=== PATIENT | male | born 1965 ===

== ENCOUNTER 2018-03-16 16:39 | Inpatient (IN) | payer BC ==
[2018-03-16 17:24] LABS: VENOUS BLOOD GAS BASE EXCESS -3.3 mmol/L (0.0-2.0); VENOUS BLOOD GAS PCO2 37 mmHg (40-60); VENOUS BLOOD GAS PO2 32 mm/Hg (30-55); VENOUS BLOOD PH 7.37 (7.32-7.43)
[2018-03-16 17:24] LABS: BASO # 0.1 K/uL (0.0-0.2); BASO % 1.3 % (0.0-2.0); EOS # 0.2 K/uL (0.0-0.7); EOS % 1.9 % (0.0-4.0); HEMOGLOBIN 15.7 g/dL (12.0-18.0); LYMPH # 1.4 K/uL (1.0-4.3); MEAN CELL VOLUME 87.3 fl (80.0-94.0); MEAN CORPUSCULAR HEMOGLOBIN 29.2 pg (27.0-31.0); MEAN CORPUSCULAR HGB CONC 33.5 g/dL (33.0-37.0); MEAN PLATELET VOLUME 11.5 fl (7.2-11.7); MONO # 0.9 K/uL (0.0-0.8); MONO % 9.8 % (0.0-10.0); NEUT # 6.8 K/uL (1.8-7.0); NRBC % 0.1 % (0.0-0.0); RBC 5.38 Mil/uL (4.40-5.90); RED CELL DISTRIBUTION WIDTH 16.3 % (11.5-14.5); WHITE BLOOD COUNT 9.5 K/uL (4.8-10.8)
[2018-03-16 17:36] LABS: CALCIUM 8.7 mg/dL (8.4-10.2); INR 1.2; PROTHROMBIN TIME 13.3 Seconds (9.8-13.1)
[2018-03-16 17:38] LABS: PARTIAL THROMBOPLASTIN TIME 31.1 Seconds (25.6-37.1)
--- NOTE | 2018-03-16 17:45 | RAD ---
Date of service: 03/16/2018 HISTORY: possible admission COMPARISON: No prior. FINDINGS: LUNGS: No active pulmonary disease. PLEURA: No significant pleural effusion identified, no pneumothorax apparent. CARDIOVASCULAR: Cardiomegaly. No evidence of acute, significant cardiovascular disease. OSSEOUS STRUCTURES: No significant abnormalities. VISUALIZED UPPER ABDOMEN: Normal. OTHER FINDINGS: None. IMPRESSION: No active disease.
[2018-03-16 17:48] LABS: TROPONIN I 0.115 ng/mL (0.00-0.120)
--- NOTE | 2018-03-16 18:09 | ED PDOC ---
HPI: SOB/CHF/COPD Time Seen by Provider: 03/16/18 16:55 Chief Complaint (Nursing): Shortness Of Breath Chief Complaint (Provider): Shortness Of Breath History Per: Patient History/Exam Limitations: no limitations Onset/Duration Of Symptoms: Days Current Symptoms Are (Timing): Still Present Additional Complaint(s): 52 y/o male with a PMHx of a small heart attack several years ago presents to the ED complaining of increasing chest pain and shortness of breath. Patient went to see PMD and was diagnosed with new onset heart failure and atrial fibrillation. PMD requests patient to be admitted to hospital with consult for Dr. Pate. Patient denies drug use, syncope, nausea, vomiting and other problems. PMD: None Provided Past Medical History Reviewed: Historical Data, Nursing Documentation, Vital Signs Vital Signs: Last Vital Signs Temp 97.7 F 03/16/18 22:32 Pulse 80 03/16/18 22:32 Resp 20 03/16/18 22:32 BP 178/111 H 03/16/18 22:32 Pulse Ox 97 03/16/18 22:32 - Medical History PMH: Atrial Fibrillation, CHF, HTN - Surgical History Surgical History: No Surg Hx - Family History Family History: States: Unknown Family Hx - Social History Drugs: Denies - Immunization History Hx Tetanus Toxoid Vaccination: No Hx Influenza Vaccination: No Hx Pneumococcal Vaccination: No - Home Medications Home Medications: Ambulatory Orders Medication Instructions Recorded Valsartan/Hydrochlorothiazide 1 tab PO DAILY 03/16/18 [Valsartan-Hctz 320-25 mg Tab] - Allergies Allergies/Adverse Reactions: Allergies Allergy/AdvReac Type Severity Reaction Status Date / Time No Known Allergies Allergy Unverified 03/16/18 16:42 Review of Systems ROS Statement: Except As Marked, All Systems Reviewed And Found Negative Cardiovascular: Positive for: Chest Pain Respiratory: Positive for: Shortness of Breath Physical Exam - Reviewed Nursing Documentation Reviewed: Yes Vital Signs Reviewed: Yes - Physical Exam Appears: Positive for: No Acute Distress Head Exam: Positive for: ATRAUMATIC, NORMOCEPHALIC Skin: Positive for: Normal Color, Warm, Dry Eye Exam: Positive for: Normal appearance Cardiovascular/Chest: Positive for: Other (Midsternal chest pain) Respiratory: Positive for: Other (mild shortness of breath) Gastrointestinal/Abdominal: Positive for: Normal Exam, Soft. Negative for: Tenderness Comments: Vitals on monitor with HTN. At PMD's office, systolic was 200. On arrival, systolic was 158 - Laboratory Results Result Diagrams: 03/16/18 17:20 03/16/18 17:20 - ECG O2 Sat by Pulse Oximetry: 97 (RA) Pulse Ox Interpretation: Normal Medical Decision Making Medical Decision Making: Time: 1720 A/P: Patient referred to ED for hospital admission. -- Labs sent including Troponin and BNP -- CXR and EKG ordered -- Will consult with coffee bar attendant and reassess patient. -- Type and Screen -- VBG -- EKG -- BNP -- BMP -- Troponin I -- CBC with differentials -- PTT -- Prothrombin Time -- CXR Portable -- Nitroglycerin 0.4 mg SL Time: 1828 --Spoke with Dilma regarding patient, will consult Rio (coffee bar attendant. 18:[address] Pate who will see the pt in the ED. Does not recommend transfer at this time and agrees with BP control. RN informed tat BP was increasing and will start Nicardipine drip. Pt to be admitted to telemetry service. Scribe Attestation: Documented by Shaq Vital acting as a scribe for Bonny Aj MD. Provider Scribe Attestation: All medical record entries made by the Scribe were at my direction and personally dictated by me. I have reviewed the chart and agree that the record accurately reflects my personal performance of the history, physical exam, medical decision making, and the department course for this patient. I have also personally directed, reviewed, and agree with the discharge instructions and disposition. Disposition - Clinical Impression Clinical Impression: Atrial fibrillation, Hypertension - Patient ED Disposition Is Patient to be Admitted: Yes - Disposition Disposition Time: 18:28 Condition: CRITICAL
[2018-03-16] MEDS ORDERED: Nicardipine 20 MG/200 ML 20 MG/200 ML BAG IV ONE (18:59)
--- NOTE | 2018-03-16 19:48 | CP.PCM.HP ---
History of Present Illness - History of Present Illness History of Present Illness: 52 yr old M presents to ED with complaint of worsening SOB on exertion and intermittent chest pain x 2 weeks. PMH includes hypertension. Patient reports he went to see his PMD today-Stalin Khalil and after evaluation in the office was told he had an irregular heart rhythm and sent to ED. Patient describes chest pain as "someone squeezing his chest", pain is located midsternal and radiates to the right, to the left and towards lower left chest area. Patient denies any PMHx of [place], CAD or PVD. Denies nausea, vomiting, diarrhea, sweating, weakness or dizziness. Associated symptoms are bilateral LE swelling, presyncope and SOB when trying to sleep. Prior to these 2 weeks of symptoms, patient reports he was able to walk 10 blocks without difficulty, could walk 30 minutes to work and had no difficulty walking all day at work. PMD: Stalin Khalil Specialists: none PMHx: hypertension SurgHx: none FMHx: mother at 75 from [place], father is 86 and healthy, all siblings are healthy SocHx: denies tobacco/Etoh or drugs Medications: Valsartan 320mg PO QD (has been on this medication for many years) Allergies: NKDA Code status: Full code ED course: BP 158/104 mmHg, HR 113, Temp 98.1F, Resp rate 22, SpO2 91% on room air -EKG: afib with RVR -CXR: no active disease, no significant pleural effusion, cardiomegaly -CBC: wnl -BMP: Na 140, K+ 4.4, Cl 111, HCO3 24, AG 9, BUN 26/Cr 1.5, est GFR 49 -troponin 0.1150 -proBNP 7320 -coags: PT 13.3, rest wnl -Cardiology consulted: Dr. Pate-requested by PMD -ED treatment: nitroglycerin 0.4mg SL once, 2L supplemental O2 via nasal cannula Present on Admission - Present on Admission Any Indicators Present on Admission: No History of DVT/PE: No History of Uncontrolled Diabetes: No Urinary Catheter: No Decubitus Ulcer Present: No History Surgical Site Infection Following: None Review of Systems - Constitutional Constitutional: absent: Chills, Weakness - EENT Eyes: Blurred Vision Ears: absent: Dizziness Nose/Mouth/Throat: absent: Facial Pain, Neck Pain - Cardiovascular Cardiovascular: Chest Pain, Chest Pain at Rest, Dyspnea, Irregular Heart Rhythm , Palpitations, Pedal Edema, Other (presyncope). absent: Pain Radiating to Arm/ Neck/Jaw, Lightheadedness - Respiratory Respiratory: absent: Cough, Hemoptysis - Gastrointestinal Gastrointestinal: absent: Abdominal Pain, Diarrhea, Nausea, Vomiting - Genitourinary Genitourinary: absent: Difficulty Urinating, Dysuria - Musculoskeletal Musculoskeletal: absent: Neck Pain, Numbness, Tingling - Integumentary Integumentary: absent: Bleeding Lesions - Neurological Neurological: absent: Confusion, Focal Weakness - Endocrine Endocrine: absent: Polydipsia, Polyphagia, Polyuria - Hematologic/Lymphatic Hematologic: absent: Easy Bleeding, Easy Bruising Past Patient History - Past Social History Drugs: Denies - CARDIAC Hx Atrial Fibrillation: Yes Hx Congestive Heart Failure: Yes Hx Hypertension: Yes - PSYCHIATRIC Hx Substance Use: No Meds Allergies/Adverse Reactions: Allergies Allergy/AdvReac Type Severity Reaction Status Date / Time No Known Allergies Allergy Unverified 03/16/18 16:42 Physical Exam - Constitutional Appears: No Acute Distress - Head Exam Head Exam: ATRAUMATIC, NORMOCEPHALIC - Eye Exam Eye Exam: EOMI, PERRL - ENT Exam ENT Exam: Mucous Membranes Moist - Neck Exam Neck exam: Positive for: Full Rom. Negative for: Lymphadenopathy - Respiratory Exam Respiratory Exam: Clear to Auscultation Bilateral, NORMAL BREATHING PATTERN. absent: Rales, Rhonchi, Wheezes - Cardiovascular Exam Cardiovascular Exam: Irregular Rhythm (afib with RVR), +S1, +S2 - GI/Abdominal Exam GI & Abdominal Exam: Normal Bowel Sounds, Soft (obese). absent: Tenderness - Extremities Exam Extremities exam: Positive for: full ROM, pedal edema (pitting +2 bilateral). Negative for: tenderness - Back Exam Back exam: FULL ROM - Neurological Exam Neurological exam: Alert, CN II-XII Intact, Oriented x3 - Psychiatric Exam Psychiatric exam: Normal Affect, Normal Mood - Skin Skin Exam: Dry, Normal Color, Warm Results - Vital Signs Recent Vital Signs: Last Vital Signs Temp 98.1 F 03/16/18 16:42 Pulse 100 H 03/16/18 18:34 Resp 19 03/16/18 17:00 BP 190/100 H 03/16/18 18:34 Pulse Ox 97 03/16/18 18:49 - Labs Result Diagrams: 03/16/18 17:20 03/16/18 17:20 Labs: Laboratory Results - last 24 hr 03/16/18 03/16/18 03/16/18 17:04 17:15 17:20 WBC RBC Hgb Hct MCV MCH MCHC RDW Plt Count MPV Neut % (Auto) Lymph % (Auto) Newton % (Auto) Eos % (Auto) Baso % (Auto) Neut # (Auto) Lymph # (Auto) Newton # (Auto) Eos # (Auto) Baso # (Auto) PT INR APTT pO2 32 VBG pH 7.37 VBG pCO2 37 L VBG HCO3 21.4 VBG Total CO2 22.5 VBG O2 Sat (Calc) 72.8 H VBG Base Excess -3.3 L VBG Potassium 4.2 Sodium 137.0 140 Chloride 108.0 H 111 H Glucose 112 H Lactate 1.6 FiO2 21.0 Potassium 4.4 Carbon Dioxide 24 Anion Gap 9 L BUN 26 H Creatinine 1.5 Est GFR ( Amer) 59 Est GFR (Non-Af Amer) 49 Random Glucose 95 Calcium 8.7 Troponin I 0.1150 NT-Pro-B Natriuret Pep 7320 H Venous Blood Potassium 4.2 Blood Type O POSITIVE Blood Type Confirm Antibody Screen Negative BBK History Checked No verified bt 03/16/18 03/16/18 03/16/18 17:20 17:20 18:15 WBC 9.5 RBC 5.38 Hgb 15.7 Hct 47.0 MCV 87.3 MCH 29.2 MCHC 33.5 RDW 16.3 H Plt Count 136 MPV 11.5 Neut % (Auto) 72.0 Lymph % (Auto) 15.0 L Newton % (Auto) 9.8 Eos % (Auto) 1.9 Baso % (Auto) 1.3 Neut # (Auto) 6.8 Lymph # (Auto) 1.4 Newton # (Auto) 0.9 H Eos # (Auto) 0.2 Baso # (Auto) 0.1 PT 13.3 H INR 1.2 APTT 31.1 pO2 VBG pH VBG pCO2 VBG HCO3 VBG Total CO2 VBG O2 Sat (Calc) VBG Base Excess VBG Potassium Sodium Chloride Glucose Lactate FiO2 Potassium Carbon Dioxide Anion Gap BUN Creatinine Est GFR ( Amer) Est GFR (Non-Af Amer) Random Glucose Calcium Troponin I NT-Pro-B Natriuret Pep Venous Blood Potassium Blood Type Blood Type Confirm O POSITIVE Antibody Screen BBK History Checked Assessment & Plan - Assessment and Plan (Free Text) Assessment: 52 yr old M admitted for new onset atrial fibrillation, new onset congestive heart failure and chest pain with PMHX hypertension. Atrial fibrillation -acute, new onset -EKG: Afib with RVR -admit to telemetry -Cardizem drip 5mg /hr, Aspirin 325mg PO stat once, then Aspirin 81mg PO QD, Lovenox 90mg PO Q12 -f/u repeat EKG in AM' -f/u echocardiogram -Cardiology consult appreciated: Dr. Pate (requested by PMD) Congestive heart failure -acute, unknown type -CXR: no active disease, no significant pleural effusion, cardiomegaly -lasix 40mg IV once -continue lasix 40mg IV QD -f/u echo as above -daily weights, I&O -f/u TSH, magnesium Chest pain -acute, likely secondary to new onset Afib and CHF -1st troponin: 0.1150 -f/u serial troponins -management as above -cardiology on consult -f/u lipid panel, Hypertension -chronic, uncontrolled -hold home medication for now (Valsartan 320mg PO QD) -monitor BP -heart healthy diet Acute Renal Failure -acute, BUN 26/Cr 1.5, est GFR 49 -avoid nephrotoxic drugs, hold home med -f/u repeat BMP in AM DVT prophylaxis -patient on Lovenox 90mg PO Q12 as above - Date & Time Date: 03/16/18 Time: 19:50
--- NOTE | 2018-03-16 19:55 | CP.PCM.CON ---
History of Present Illness - History of Present Illness History of Present Illness: I was asked to evaluate patient by Dr Perera. Patient is followed by Dr Zayas. Patient presents with 2 week history of dyspena and fatigue. Today was found to be in atrial fibrillation with rapid ventricular response. He denies chest pain. He is hypertensive. Review of Systems - Constitutional Constitutional: Fatigue, Lethargy, Weakness - EENT Eyes: absent: As Per HPI, Blind Spots, Blurred Vision, Change in Vision, Decreased Night Vision, Diplopia, Discharge, Dry Eye, Exophthalmos, Floaters, Irritation, Itchy Eyes, Loss of Peripheral Vision, Pain, Photophobia, Requires Corrective Lenses, Sees Flashes, Spots in Vision, Tunnel Vision, Other Visual Disturbances, Loss of Vision, Other Ears: absent: As Per HPI, Decreased Hearing, Ear Discharge, Ear Pain, Tinnitus, Abnormal Hearing, Disequilibrium, Dizziness, Other Nose/Mouth/Throat: absent: As Per HPI, Epistaxis, Nasal Congestion, Nasal Discharge, Nasal Obstruction, Nasal Trauma, Nose Pain, Post Nasal Drip, Sinus Pain, Sinus Pressure, Bleeding Gums, Change in Voice, Dental Pain, Dry Mouth, Dysphagia, Halitosis, Hoarsness, Lip Swelling, Mouth Lesions, Mouth Pain, Odynophagia, Sore Throat, Throat Swelling, Tongue Swelling, Facial Pain, Neck Pain, Neck Mass, Other - Cardiovascular Cardiovascular: Palpitations - Respiratory Respiratory: Dyspnea - Gastrointestinal Gastrointestinal: absent: As Per HPI, Abdominal Pain, Belching, Bloating, Change in Bowel Habits, Change in Stool Character, Coffee Ground Emesis, Constipation, Cramping, Diarrhea, Dyspepsia, Dysphagia, Early Satiety, Excessive Flatus, Fecal Incontinence, Heartburn, Hematemesis, Hematochezia, Loose Stools, Melena, Nausea, Odynophagia, Temesmus, Vomiting, Other - Genitourinary Genitourinary: absent: As Per HPI, Change in Urinary Stream, Difficulty Urinating, Dysuria, Flank Pain, Hematuria, Pyuria, Nocturia, Urinary Incontinence, Urinary Frequency, Urinary Hesitance, Urinary Urgency, Voiding Freq/Small Amts, Freq UTI, Hx Renal/Bladder Calculi, Hx /Renal Surgery, Bladder Distension, Other - Musculoskeletal Musculoskeletal: absent: As Per HPI, Abnormal Gait, Arthralgias, Atrophy, Back Pain, Deformity, Joint Swelling, Limited Range of Motion, Loss of Height, Muscle Cramps, Muscle Weakness, Myalgias, Neck Pain, Numbness, Radiating Pain into Limb, Stiffness, Tingling, Other - Integumentary Integumentary: absent: As Per HPI, Acne, Alopecia, Bleeding Lesions, Change in Hair, Change in Nails, Change in Pigmentation, Changing Lesions, Dry Skin, Erythema, Furuncle, Hirsutism, Lesions, New Lesions, Non-Healing Lesions, Photosensitivity, Pruritus, Rash, Skin Pain, Skin Ulcer, Sores, Striae, Swelling , Unusual Bruising, Wounds, Jaundice, Other - Neurological Neurological: absent: As Per HPI, Abnormal Gait, Abnormal Hearing, Abnormal Movements, Abnormal Speech, Behavioral Changes, Burning Sensations, Confusion, Convulsions, Disequilibrium, Dizziness, Numbness, Focal Weakness, Frequent Falls , Headaches, Lack of Coordination, Loss of Vision, Memory Loss, Paresthesias, Radicular Pain, Restless Legs, Sensory Deficit, Syncope, Tingling, Tremor, Vertigo, Weakness, Other Visual Disturbances, Other - Psychiatric Psychiatric: absent: As Per HPI, Abnormal Sleep Pattern, Anhedonia, Anxiety, Auditory Hallucinations, Behavioral Changes, Change in Appetite, Change in Libido, Confusion, Depression, Difficulty Concentrating, Hallucinations, Homicidal Ideation, Hopelessness, Irritability, Memory Loss, Mood Swings, Panic Attacks, Paranoia, Suicidal Ideation, Visual Hallucinations, Tactile Hallucinations, Other - Endocrine Endocrine: absent: As Per HPI, Change in Body Appearance, Change in Libido, Cold Intolorance, Deepening of Voice, Excessive Sweating, Fatigue, Flushing, Heat Intolorance, Increase in Ring/Shoe/Hat Size, Palpitations, Polydipsia, Polyphagia, Polyuria, Other - Hematologic/Lymphatic Hematologic: absent: As Per HPI, Easy Bleeding, Easy Bruising, Lymphadenopathy, Other Past Patient History - Past Social History Drugs: Denies - CARDIAC Hx Atrial Fibrillation: Yes Hx Congestive Heart Failure: Yes Hx Hypertension: Yes - PSYCHIATRIC Hx Substance Use: No Meds Allergies/Adverse Reactions: Allergies Allergy/AdvReac Type Severity Reaction Status Date / Time No Known Allergies Allergy Unverified 03/16/18 16:42 - Medications Medications: Current Medications Acetaminophen (Tylenol 325mg Tab) 650 mg PO Q6 PRN PRN Reason: Pain, Mild (1-3) Aspirin (Aspirin) 325 mg PO STAT STA Stop: 03/16/18 19:34 Aspirin (Ecotrin) 81 mg PO DAILY HUMBERTO Enoxaparin Sodium (Lovenox) 90 mg SC Q12 HUMBERTO PRN Reason: Protocol Furosemide (Lasix) 40 mg IVP STAT STA Stop: 03/16/18 19:38 Diltiazem HCl 125 mg/ Sodium (Chloride) 125 mls @ 5 mls/hr IV .Q24H ONE; 5 MG/ HR PRN Reason: Protocol Stop: 03/17/18 19:29 Ondansetron HCl (Zofran Inj) 4 mg IVP Q6 PRN PRN Reason: Nausea/Vomiting Potassium Chloride (Klor-Con 10) 10 meq PO DAILY [facility] Physical Exam - Constitutional Appears: Non-toxic - Head Exam Head Exam: NORMAL INSPECTION - Eye Exam Eye Exam: Normal appearance - ENT Exam ENT Exam: Mucous Membranes Moist - Neck Exam Neck exam: Positive for: Full Rom - Respiratory Exam Respiratory Exam: NORMAL BREATHING PATTERN - Cardiovascular Exam Cardiovascular Exam: Tachycardia, Irregular Rhythm - GI/Abdominal Exam GI & Abdominal Exam: Normal Bowel Sounds - Rectal Exam Rectal Exam: Deferred - Extremities Exam Extremities exam: Negative for: pedal edema - Back Exam Back exam: NORMAL INSPECTION - Neurological Exam Neurological exam: Alert, Oriented x3 - Psychiatric Exam Psychiatric exam: Normal Affect - Skin Skin Exam: Normal Color Results - Vital Signs Recent Vital Signs: Last Vital Signs Temp 98.1 F 03/16/18 16:42 Pulse 100 H 03/16/18 18:34 Resp 19 03/16/18 17:00 BP 190/100 H 03/16/18 18:34 Pulse Ox 97 03/16/18 18:49 - Labs Result Diagrams: 03/16/18 17:20 03/16/18 17:20 Labs: Laboratory Results - last 24 hr 03/16/18 03/16/18 03/16/18 17:04 17:15 17:20 WBC RBC Hgb Hct MCV MCH MCHC RDW Plt Count MPV Neut % (Auto) Lymph % (Auto) Leslie % (Auto) Eos % (Auto) Baso % (Auto) Neut # (Auto) Lymph # (Auto) Leslie # (Auto) Eos # (Auto) Baso # (Auto) PT INR APTT pO2 32 VBG pH 7.37 VBG pCO2 37 L VBG HCO3 21.4 VBG Total CO2 22.5 VBG O2 Sat (Calc) 72.8 H VBG Base Excess -3.3 L VBG Potassium 4.2 Sodium 137.0 140 Chloride 108.0 H 111 H Glucose 112 H Lactate 1.6 FiO2 21.0 Potassium 4.4 Carbon Dioxide 24 Anion Gap 9 L BUN 26 H Creatinine 1.5 Est GFR ( Amer) 59 Est GFR (Non-Af Amer) 49 Random Glucose 95 Calcium 8.7 Troponin I 0.1150 NT-Pro-B Natriuret Pep 7320 H Venous Blood Potassium 4.2 Blood Type O POSITIVE Blood Type Confirm Antibody Screen Negative BBK History Checked No verified bt 03/16/18 03/16/18 03/16/18 17:20 17:20 18:15 WBC 9.5 RBC 5.38 Hgb 15.7 Hct 47.0 MCV 87.3 MCH 29.2 MCHC 33.5 RDW 16.3 H Plt Count 136 MPV 11.5 Neut % (Auto) 72.0 Lymph % (Auto) 15.0 L Leslie % (Auto) 9.8 Eos % (Auto) 1.9 Baso % (Auto) 1.3 Neut # (Auto) 6.8 Lymph # (Auto) 1.4 Leslie # (Auto) 0.9 H Eos # (Auto) 0.2 Baso # (Auto) 0.1 PT 13.3 H INR 1.2 APTT 31.1 pO2 VBG pH VBG pCO2 VBG HCO3 VBG Total CO2 VBG O2 Sat (Calc) VBG Base Excess VBG Potassium Sodium Chloride Glucose Lactate FiO2 Potassium Carbon Dioxide Anion Gap BUN Creatinine Est GFR ( Amer) Est GFR (Non-Af Amer) Random Glucose Calcium Troponin I NT-Pro-B Natriuret Pep Venous Blood Potassium Blood Type Blood Type Confirm O POSITIVE Antibody Screen BBK History Checked - EKG Data EKG Interpreted by: Myself Assessment & Plan - Assessment and Plan (Free Text) Assessment: atrial fibrillation new onset. recommend rate control with cardizem. recommend lovenox. check electrocardiogram to evaluate LV function. HTN bloo dpresusre is markedly elevated. will use cardizem, consider additional meds
[2018-03-16] MEDS: Enoxaparin 100 mg Syringe SC SCH (22:01)
[2018-03-17] MEDS ORDERED: Pneumococcal 23-Valent Vaccine IM ONE (06:00)
[2018-03-17 06:13] LABS: BLOOD UREA NITROGEN 22 mg/dl (9-20); CALCIUM 8.7 mg/dL (8.4-10.2); GFR NON-AFRICAN AMERICAN 53
--- NOTE | 2018-03-17 06:29 | CARD ---
APPROVED REPORT Date of service: 03/16/2018 EKG Measurement Heart [id number] <Conclusion> Atrial fibrillation with rapid ventricular response Rightward axis Nonspecific intraventricular block Cannot rule out Septal infarct, age undetermined T wave abnormality, consider inferolateral ischemia Abnormal ECG
[2018-03-17 07:01] LABS: HEMOGLOBIN 15.1 g/dL (12.0-18.0); MEAN CELL VOLUME 86.7 fl (80.0-94.0); MEAN CORPUSCULAR HEMOGLOBIN 29.3 pg (27.0-31.0); MEAN CORPUSCULAR HGB CONC 33.8 g/dL (33.0-37.0); RBC 5.17 Mil/uL (4.40-5.90); WHITE BLOOD COUNT 9.4 K/uL (4.8-10.8)
--- NOTE | 2018-03-17 07:48 | CARD ---
APPROVED REPORT Date of service: 03/16/2018 EKG Measurement Heart [id number] <Conclusion> Atrial fibrillation Nonspecific intraventricular block Anterolateral infarct, age undetermined T wave abnormality, consider inferior ischemia Abnormal ECG
[2018-03-17 08:28] VITALS: RESP 20
--- NOTE | 2018-03-17 09:26 | CP.PCM.PN ---
<Sultan Emily - Last Filed: 03/17/18 11:30> Subjective - Date & Time of Evaluation Date of Evaluation: 03/17/18 Time of Evaluation: 08:50 - Subjective Subjective: Patient seen and examined this morning. Had episodes of elevated BP overnight. Stable VS this morning, NAD Denies any chest pain, dyspnea, palpitation, nausea, vomiting or extremity weakness. Objective - Vital Signs/Intake and Output Vital Signs (last 24 hours): Temp Pulse Resp BP Pulse Ox 97.6 F 65 20 146/84 96 03/17/18 08:00 03/17/18 08:00 03/17/18 08:00 03/17/18 08:00 03/17/18 08:00 - Medications Medications: Current Medications Acetaminophen (Tylenol 325mg Tab) 650 mg PO Q6 PRN PRN Reason: Pain, Mild (1-3) Aspirin (Ecotrin) 81 mg PO DAILY [facility] Diltiazem HCl (Cardizem) 30 mg PO QID [facility] Last Admin: 03/16/18 21:59 Dose: 30 mg Enoxaparin Sodium (Lovenox) 90 mg SC Q12 [facility] PRN Reason: Protocol Last Admin: 03/16/18 22:01 Dose: 90 mg Ondansetron HCl (Zofran Inj) 4 mg IVP Q6 PRN PRN Reason: Nausea/Vomiting Potassium Chloride (Klor-Con 10) 10 meq PO DAILY [facility] - Labs Labs: 03/17/18 05:20 03/17/18 05:20 PT 13.3 Seconds (9.8-13.1) H 03/16/18 17:20 INR 1.2 03/16/18 17:20 APTT 31.1 Seconds (25.6-37.1) 03/16/18 17:20 - Constitutional Appears: Non-toxic, No Acute Distress - Head Exam Head Exam: NORMAL INSPECTION, NORMOCEPHALIC - Eye Exam Eye Exam: EOMI, Normal appearance - ENT Exam ENT Exam: Mucous Membranes Moist - Respiratory Exam Respiratory Exam: Clear to Ausculation Bilateral, NORMAL BREATHING PATTERN. absent: Rhonchi, Wheezes - Cardiovascular Exam Cardiovascular Exam: Irregular Rhythm, +S1, +S2 - GI/Abdominal Exam GI & Abdominal Exam: Soft, Normal Bowel Sounds. absent: Tenderness - Extremities Exam Extremities Exam: Pedal Edema (2+ B/L pitting edema of LE). absent: Calf Tenderness - Neurological Exam Neurological Exam: Alert, Awake, Oriented x3 - Psychiatric Exam Psychiatric exam: Normal Affect, Normal Mood - Skin Skin Exam: Normal Color, Warm Assessment and Plan - Assessment and Plan (Free Text) Assessment: Assessment and Plan: 52 year old male with PMHX hypertension admitted for new onset atrial fibrillation, new onset congestive heart failure and chest pain. Atrial fibrillation -acute, new onset -EKG: Afib with RVR -Stop Cardizem drip 5mg /hr -start cardizem 30 mg po qid -Start Aspirin 325mg PO stat once -c/w Aspirin 81mg PO QD, Lovenox 90mg PO Q12 -Repeat EKG in AM: -f/u echocardiogram -Cardiology consult appreciated: Dr. Pate (requested by PMD): recommended rate control with cardizem. Congestive heart failure -acute, unknown type -ProBNP 7320 -CXR: no active disease, no significant pleural effusion, cardiomegaly -lasix 40mg IV once -Continue lasix 20 mg IV BID -f/u echo as above -daily weights, I&O - TSH 1.57, magnesium 1.8 Chest pain (resolved) -acute, likely secondary to new onset Afib and CHF -1st troponin: 0.1150, second troponin: 0.1080, -f/u 3rd troponin -management as above -cardiology on consult -Lipid panel: Total chol. 75, trigl 107, LDL 30, HDL 28 Hypertension -chronic, uncontrolled -hold home medication for now (Valsartan 320mg PO QD) -monitor BP -heart healthy diet Acute Renal Failure -acute, BUN 26/Cr 1.5, est GFR 49 ON 03/16/18 -BUN/Cr : 22/1.4 this morning. -avoid nephrotoxic drugs, hold home med -f/u repeat BMP DVT prophylaxis -patient on Lovenox 90mg PO Q12 as above <oSwmya Parham - Last Filed: 03/17/18 17:06> Objective - Vital Signs/Intake and Output Vital Signs (last 24 hours): Temp Pulse Resp BP Pulse Ox 97.7 F 80 20 168/94 H 98 03/17/18 15:39 03/17/18 15:39 03/17/18 15:39 03/17/18 15:39 03/17/18 15:39 - Medications Medications: Current Medications Acetaminophen (Tylenol 325mg Tab) 650 mg PO Q6 PRN PRN Reason: Pain, Mild (1-3) Aspirin (Ecotrin) 81 mg PO DAILY [facility] Last Admin: 03/17/18 09:45 Dose: 81 mg Diltiazem HCl (Cardizem) 30 mg PO QID [facility] Last Admin: 03/16/18 21:59 Dose: 30 mg Enoxaparin Sodium (Lovenox) 90 mg SC Q12 [facility] PRN Reason: Protocol Last Admin: 03/17/18 09:44 Dose: 90 mg Furosemide (Lasix) 20 mg IVP BID [facility] Ondansetron HCl (Zofran Inj) 4 mg IVP Q6 PRN PRN Reason: Nausea/Vomiting Potassium Chloride (Klor-Con 10) 10 meq PO DAILY [facility] Last Admin: 03/17/18 09:45 Dose: 10 meq - Labs Labs: 03/17/18 05:20 03/17/18 05:20 PT 13.3 Seconds (9.8-13.1) H 03/16/18 17:20 INR 1.2 03/16/18 17:20 APTT 31.1 Seconds (25.6-37.1) 03/16/18 17:20 Attending/Attestation - Attestation I have personally seen and examined this patient.: Yes I have fully participated in the care of the patient.: Yes I have reviewed all pertinent clinical information, including history, physical exam and plan: Yes
[2018-03-17] MEDS: Enoxaparin 100 mg Syringe SC SCH ×2 (09:44→20:28)
[2018-03-17] MEDS: Potassium Chloride 10 mEq ER Tab PO SCH (09:45)
--- NOTE | 2018-03-17 16:40 | CARD ---
APPROVED REPORT Date of service: 03/17/2018 EXAM: Two-dimensional and M-mode echocardiogram with Doppler and color Doppler. Other Information Quality : GoodRhythm : Atrial Fibrillation INDICATION Atrial Fibrillation Congestive Heart Failure 2D DIMENSIONS IVSd1.80 (0.7-1.1cm)LVDd5.11 (3.9-5.9cm) LVOT Diameter2.47 (1.8-2.4cm)PWd1.54 (0.7-1.1cm) IVSs2.53 (0.8-1.2cm)LVDs4.19 (2.5-4.0cm) FS (%) 18.0 %PWs2.18 (0.8-1.2cm) M-Mode DIMENSIONS Left Atrium (MM)5.73 (2.5-4.0cm)IVSd1.82 (0.7-1.1cm) Aortic Root3.49 (2.2-3.7cm)LVDd5.80 (4.0-5.6cm) Aortic Cusp Exc.1.89 (1.5-2.0cm)PWd1.50 (0.7-1.1cm) IVSs2.20 cmFS (%) 34 % LVDs3.84 (2.0-3.8cm)PWs2.03 cm Aortic Valve AoV Peak Usuwstpz146.4cm/sAoV VTI28.3cmAO Peak GR.16mmHg LVOT Peak Vvfkhcyv75.8cm/sLVOT VTI13.70cmAO Mean GR.10mmHg ISHA (VMAX)2.93zv7OC P 1/2 [id number] Mitral Valve E/A ratio0.0 TDI E/Lateral E'0.0E/Medial E'0.0 Tricuspid Valve [id number] LEFT VENTRICLE The left ventricle is normal size. There is moderate concentric left ventricular hypertrophy. The left ventricular systolic function is normal. The estimated ejection fraction is 55-6060% No regional wall motion abnormalities noted.. The left ventricular diastolic function is unable to be accuarately assessed No left ventricle thrombus noted on this study. There is no ventricular septal defect visualized. There is no mass noted in the left ventricle. RIGHT VENTRICLE The right ventricle is normal size. There is normal right ventricular wall thickness. The right ventricular systolic function is normal. ATRIA The left atrium size is moderately dilated The right atrium size is moderately dilated The interatrial septum is intact with no evidence for an atrial septal defect. AORTIC VALVE The aortic valve is normal in structure. There is sclerosis Mild to moderate aortic regurgitation is present. There is very mild aortic valvular stenosis. MITRAL VALVE The mitral valve is normal in structure. There is no mitral valve stenosis. There is mild mitral valve regurgitation noted. TRICUSPID VALVE The tricuspid valve is normal in structure. There is trivial tricuspid valve regurgitation noted. PASP within normal limits PULMONIC VALVE The pulmonary valve is normal in structure. There is mild pulmonic valvular regurgitation. GREAT VESSELS The aortic root is normal in size. The ascending aorta is normal in size. The pulmonary artery is normal. The IVC is normal in size and collapses >50% with inspiration. PERICARDIAL EFFUSION There is no pericardial effusion. <Conclusion> Minimal aortic stenosis with mild to moderate insufficiency Mild mitral insufficiency Trivial TR/mild PI with normal PASP Moderate LVH Normal LV systolic function The estimated ejection fraction is 55-60%
[2018-03-17 17:23] LABS: HEMOGLOBIN 16.1 g/dL (12.0-18.0); MEAN CELL VOLUME 87.4 fl (80.0-94.0); MEAN CORPUSCULAR HGB CONC 33.2 g/dL (33.0-37.0); RBC 5.54 Mil/uL (4.40-5.90); RED CELL DISTRIBUTION WIDTH 16.5 % (11.5-14.5); WHITE BLOOD COUNT 9.5 K/uL (4.8-10.8)
--- NOTE | 2018-03-17 19:10 | CP.PCM.PN ---
Subjective - Date & Time of Evaluation Date of Evaluation: 03/17/18 Time of Evaluation: 18:15 - Subjective Subjective: patient feels well. patient has less dyspnea. Objective - Vital Signs/Intake and Output Vital Signs (last 24 hours): Temp Pulse Resp BP Pulse Ox 97.7 F 80 20 168/94 H 98 03/17/18 15:39 03/17/18 15:39 03/17/18 15:39 03/17/18 17:10 03/17/18 15:39 - Medications Medications: Current Medications Acetaminophen (Tylenol 325mg Tab) 650 mg PO Q6 PRN PRN Reason: Pain, Mild (1-3) Aspirin (Ecotrin) 81 mg PO DAILY [facility] Last Admin: 03/17/18 09:45 Dose: 81 mg Diltiazem HCl (Cardizem) 30 mg PO QID [facility] Last Admin: 03/17/18 18:31 Dose: Not Given Enoxaparin Sodium (Lovenox) 90 mg SC Q12 [facility] PRN Reason: Protocol Last Admin: 03/17/18 09:44 Dose: 90 mg Furosemide (Lasix) 20 mg IVP BID [facility] Last Admin: 03/17/18 17:10 Dose: 20 mg Ondansetron HCl (Zofran Inj) 4 mg IVP Q6 PRN PRN Reason: Nausea/Vomiting Potassium Chloride (Klor-Con 10) 10 meq PO DAILY [facility] Last Admin: 03/17/18 09:45 Dose: 10 meq - Labs Labs: 03/17/18 17:14 03/17/18 05:20 PT 13.3 Seconds (9.8-13.1) H 03/16/18 17:20 INR 1.2 03/16/18 17:20 APTT 31.1 Seconds (25.6-37.1) 03/16/18 17:20 - Constitutional Appears: Non-toxic - Head Exam Head Exam: NORMAL INSPECTION - Eye Exam Eye Exam: Normal appearance - ENT Exam ENT Exam: Mucous Membranes Moist - Neck Exam Neck Exam: Full ROM - Respiratory Exam Respiratory Exam: Decreased Breath Sounds - Cardiovascular Exam Cardiovascular Exam: Irregular Rhythm - GI/Abdominal Exam GI & Abdominal Exam: Normal Bowel Sounds - Rectal Exam Rectal Exam: Deferred - Extremities Exam Extremities Exam: absent: Pedal Edema - Back Exam Back Exam: NORMAL INSPECTION - Neurological Exam Neurological Exam: Alert - Psychiatric Exam Psychiatric exam: Normal Affect - Skin Skin Exam: Normal Color Assessment and Plan (1) Atrial fibrillation Assessment & Plan: will need improved rate control. increase cardizem. continue lovenox. echocardiogram reveasl normal left vetnricular function. recommend stress test. Status: Acute (2) Hypertension Status: Acute
[2018-03-18 05:49] LABS: HEMOGLOBIN 16.1 g/dL (12.0-18.0); MEAN CELL VOLUME 87.4 fl (80.0-94.0); MEAN CORPUSCULAR HGB CONC 33.2 g/dL (33.0-37.0); RBC 5.56 Mil/uL (4.40-5.90); RED CELL DISTRIBUTION WIDTH 16.2 % (11.5-14.5); WHITE BLOOD COUNT 8.4 K/uL (4.8-10.8)
[2018-03-18 05:54] LABS: BLOOD UREA NITROGEN 23 mg/dl (9-20); CALCIUM 8.8 mg/dL (8.4-10.2); GFR NON-AFRICAN AMERICAN 58
[2018-03-18 06:41] LABS: B-TYPE NATRIURETIC PEPTIDE 4250 pg/ml (0-900)
[2018-03-18] MEDS: Enoxaparin 100 mg Syringe SC SCH (09:18)
[2018-03-18] MEDS: Potassium Chloride 10 mEq ER Tab PO SCH (09:19)
--- NOTE | 2018-03-18 10:26 | CP.PCM.PN ---
Subjective - Date & Time of Evaluation Date of Evaluation: 03/18/18 Time of Evaluation: 09:25 - Subjective Subjective: Patient seen and examined at bedside. No acute overnight events. Stable VS, NAD. Denies any chest pain, dyspnea, palpitation, nausea, vomiting or dizziness. Denies any bleeding. Objective - Vital Signs/Intake and Output Vital Signs (last 24 hours): Temp Pulse Resp BP Pulse Ox 97.6 F 70 20 143/79 99 03/18/18 07:53 03/18/18 09:19 03/18/18 07:53 03/18/18 09:20 03/18/18 07:53 - Medications Medications: Current Medications Acetaminophen (Tylenol 325mg Tab) 650 mg PO Q6 PRN PRN Reason: Pain, Mild (1-3) Aspirin (Ecotrin) 81 mg PO DAILY [facility] Last Admin: 03/18/18 09:19 Dose: 81 mg Diltiazem HCl (Cardizem) 30 mg PO QID [facility] Last Admin: 03/18/18 09:19 Dose: 30 mg Enoxaparin Sodium (Lovenox) 90 mg SC Q12 [facility] PRN Reason: Protocol Last Admin: 03/18/18 09:18 Dose: 90 mg Furosemide (Lasix) 20 mg IVP BID [facility] Last Admin: 03/18/18 09:20 Dose: 20 mg Losartan Potassium (Cozaar) 100 mg PO DAILY [facility] Last Admin: 03/18/18 09:19 Dose: 100 mg Ondansetron HCl (Zofran Inj) 4 mg IVP Q6 PRN PRN Reason: Nausea/Vomiting Potassium Chloride (Klor-Con 10) 10 meq PO DAILY [facility] Last Admin: 03/18/18 09:19 Dose: 10 meq - Labs Labs: 03/18/18 04:50 03/18/18 04:50 PT 13.3 Seconds (9.8-13.1) H 03/16/18 17:20 INR 1.2 03/16/18 17:20 APTT 31.1 Seconds (25.6-37.1) 03/16/18 17:20 - Constitutional Appears: Non-toxic, No Acute Distress - Head Exam Head Exam: ATRAUMATIC, NORMOCEPHALIC - Eye Exam Eye Exam: EOMI, Normal appearance - ENT Exam ENT Exam: Mucous Membranes Moist - Neck Exam Neck Exam: Full ROM, Normal Inspection. absent: Meningismus - Respiratory Exam Respiratory Exam: Clear to Ausculation Bilateral, NORMAL BREATHING PATTERN. absent: Rales, Rhonchi, Wheezes - Cardiovascular Exam Cardiovascular Exam: Irregular Rhythm, +S1, +S2 - GI/Abdominal Exam GI & Abdominal Exam: Soft, Normal Bowel Sounds. absent: Tenderness - Extremities Exam Extremities Exam: Normal Capillary Refill, Pedal Edema (1+). absent: Calf Tenderness - Back Exam Back Exam: absent: CVA tenderness (L), CVA tenderness (R) - Neurological Exam Neurological Exam: Alert, Awake, Normal Gait, Oriented x3 - Psychiatric Exam Psychiatric exam: Normal Affect, Normal Mood - Skin Skin Exam: Normal Color, Warm. absent: Petechiae Assessment and Plan - Assessment and Plan (Free Text) Assessment: Assessment and Plan: 52 year old male with PMHX hypertension admitted for new onset atrial fibrillation, new onset congestive heart failure and chest pain. Patient is scheduled for lexiscan stress test tomorrow. Atrial fibrillation -acute, new onset -EKG: Afib with RVR -c/w cardizem 30 mg po qid -c/w Aspirin 81mg PO QD -c/w Lovenox 90mg PO Q12 -Cardiology consult appreciated: Dr. Pate (requested by PMD): recommended rate control with cardizem. Chest pain (resolved) -acute, likely secondary to new onset Afib and CHF -1st troponin: 0.1150, second troponin: 0.1080, third troponin 0.0800 -Repeat EKG (final read): atrial fibrillation. Nonspecific intraventricular block. Anterolateral infarct, age undetermined. T wave abnormality, consider inferior ischemia. -cardiology on consult: recommended Echo and lexiscan stress test. Pt will have lexiscan stress test tomorrow. -Lipid panel: Total chol. 75, trigl 107, LDL 30, HDL 28 Congestive heart failure -acute, likely secondary to new onset atrial fibrillation -ProBNP 7320 on 03/16/18, ProBNP is 4250 today. -CXR: no active disease, no significant pleural effusion, cardiomegaly -Continue lasix 20 mg IV BID -Echocardiogram: Impression: Minimal aortic stenosis with mild to moderate insufficiency. Mild mitral insufficiency. Trivial TR/mild PI with normal PASP. Moderate LVH. Normal LV systolic function. The estimated ejection fraction is 55 -60%. -TSH 1.57, magnesium 1.8 -Daily weights, I&O Hypertension -chronic, uncontrolled -hold home medication for now (Valsartan 320mg PO QD) -start lisinopril 100 mg po daily. -monitor BP -heart healthy diet Thrombocytopenia: -Asymptomatic -platelet 105 -Continue to monitor -f/u cbc Acute Renal Failure (resolved) -acute, BUN 26/Cr 1.5, est GFR 49 ON 03/16/18 -BUN/Cr : 22/1.4 on 03/17/13 -BUN/Cr: 23/1.3 today (Cr 1.3 is pt's baseline). -avoid nephrotoxic drugs -f/u repeat BMP DVT prophylaxis -patient on Lovenox 90mg PO Q12 as above
[2018-03-18 12:06] VITALS: BP 136/98; PULSE 62; TEMP 97.2; O2SAT 97
--- NOTE | 2018-03-18 12:41 | CP.PCM.DIS ---
Provider - Provider Date of Admission: 03/16/18 18:39 Attending physician: Phillip Perera DO Time Spent in preparation of Discharge (in minutes): 35 Diagnosis - Discharge Diagnosis (1) Chest pain Status: Resolved (2) Dyspnea Status: Resolved (3) Thrombocytopenia Status: Acute (4) Atrial fibrillation Status: Acute (5) Hypertension Status: Chronic (6) Acute kidney injury Status: Resolved Hospital Course - Lab Results Lab Results: Most Recent Lab Values WBC 8.4 K/uL (4.8-10.8) 03/18/18 04:50 RBC 5.56 Mil/uL (4.40-5.90) 03/18/18 04:50 Hgb 16.1 g/dL (12.0-18.0) 03/18/18 04:50 Hct 48.5 % (35.0-51.0) 03/18/18 04:50 MCV 87.4 fl (80.0-94.0) 03/18/18 04:50 MCH 29.0 pg (27.0-31.0) 03/18/18 04:50 MCHC 33.2 g/dL (33.0-37.0) 03/18/18 04:50 RDW 16.2 % (11.5-14.5) H 03/18/18 04:50 Plt Count 105 K/uL (130-400) L 03/18/18 04:50 MPV 11.5 fl (7.2-11.7) 03/16/18 17:20 Neut % (Auto) 72.0 % (50.0-75.0) 03/16/18 17:20 Lymph % (Auto) 15.0 % (20.0-40.0) L 03/16/18 17:20 [place] % (Auto) 9.8 % (0.0-10.0) 03/16/18 17:20 Eos % (Auto) 1.9 % (0.0-4.0) 03/16/18 17:20 Baso % (Auto) 1.3 % (0.0-2.0) 03/16/18 17:20 Neut # (Auto) 6.8 K/uL (1.8-7.0) 03/16/18 17:20 Lymph # (Auto) 1.4 K/uL (1.0-4.3) 03/16/18 17:20 [place] # (Auto) 0.9 K/uL (0.0-0.8) H 03/16/18 17:20 Eos # (Auto) 0.2 K/uL (0.0-0.7) 03/16/18 17:20 Baso # (Auto) 0.1 K/uL (0.0-0.2) 03/16/18 17:20 PT 13.3 Seconds (9.8-13.1) H 03/16/18 17:20 INR 1.2 03/16/18 17:20 APTT 31.1 Seconds (25.6-37.1) 03/16/18 17:20 pO2 32 mm/Hg (30-55) 03/16/18 17:04 VBG pH 7.37 (7.32-7.43) 03/16/18 17:04 VBG pCO2 37 mmHg (40-60) L 03/16/18 17:04 VBG HCO3 21.4 mmol/L 03/16/18 17:04 VBG Total CO2 22.5 mmol/L (22-28) 03/16/18 17:04 VBG O2 Sat (Calc) 72.8 % (40-65) H 03/16/18 17:04 VBG Base Excess -3.3 mmol/L (0.0-2.0) L 03/16/18 17:04 VBG Potassium 4.2 mmol/L (3.6-5.2) 03/16/18 17:04 Sodium 137.0 mmol/L (132-148) 03/16/18 17:04 Chloride 108.0 mmol/L (98-107) H 03/16/18 17:04 Glucose 112 mg/dL (75-110) H 03/16/18 17:04 Lactate 1.6 mmol/L (0.7-2.1) 03/16/18 17:04 FiO2 21.0 % 03/16/18 17:04 Sodium 138 mmol/l (132-148) 03/18/18 04:50 Potassium 4.1 MMOL/L (3.6-5.0) 03/18/18 04:50 Chloride 106 mmol/L (98-107) 03/18/18 04:50 Carbon Dioxide 26 mmol/L (22-30) 03/18/18 04:50 Anion Gap 10 (10-20) 03/18/18 04:50 BUN 23 mg/dl (9-20) H 03/18/18 04:50 Creatinine 1.3 mg/dl (0.8-1.5) 03/18/18 04:50 Est GFR ( Amer) > 60 03/18/18 04:50 Est GFR (Non-Af Amer) 58 03/18/18 04:50 Random Glucose 85 mg/dL (75-110) 03/18/18 04:50 Calcium 8.8 mg/dL (8.4-10.2) 03/18/18 04:50 Magnesium 1.8 MG/DL (1.6-2.3) 03/17/18 09:48 Troponin I 0.0800 ng/mL (0.00-0.120) 03/17/18 11:50 NT-Pro-B Natriuret Pep 4250 pg/ml (0-900) H 03/18/18 04:50 Triglycerides 107 mg/DL (0-149) 03/16/18 20:48 Cholesterol 75 mg/dL (0-199) 03/16/18 20:48 LDL Cholesterol Direct 30 mg/dL (0-129) 03/16/18 20:48 HDL Cholesterol 28 MG/DL (30-70) L 03/16/18 20:48 Thyroxine (T4) 10.0 ug/dl (5.5-11.0) 03/16/18 20:48 TSH 3rd Generation 1.57 mIU/ML (0.46-4.68) 03/16/18 20:48 Venous Blood Potassium 4.2 mmol/L (3.6-5.2) 03/16/18 17:04 Blood Type O POSITIVE 03/16/18 17:15 Blood Type Confirm O POSITIVE 03/16/18 18:15 Antibody Screen Negative 03/16/18 17:15 BBK History Checked No verified bt 03/16/18 17:15 - Hospital Course Hospital Course: 52 year old male with pmhx HTN presented to ED on 03/16/18 with complaint of worsening SOB on exertion and intermittent chest pain x 2 weeks. Patient reports he went to see his PMD on 03/16/18-Stalin Khalil and after evaluation in the office was told he had an irregular heart rhythm and sent to ED. Patient describes chest pain as "someone squeezing his chest", pain is located midsternal and radiates to the right, to the left and towards lower left chest area. Patient denies any PMHx of OR, CAD or PVD. Denies nausea, vomiting, diarrhea, sweating, weakness or dizziness. Associated symptoms are bilateral LE swelling, presyncope and SOB when trying to sleep. Prior to these 2 weeks of symptoms, patient reports he was able to walk 10 blocks without difficulty, could walk 30 minutes to work and had no difficulty walking all day at work. Patient was admitted on 03/16/18 for new onset atrial fibrillation, congestive heart failure and evaluation of chest pain. Patient was initially treated with cardizem drip but later changed to cardizem 30 mg po qid and started on lovenox 90 mg po q12h. Patients troponin x 3 were negative. EKGs showed a-fib with RVR. [employer] Technician Dr. Duque was consulted. Patient was recommended to have echo and lexiscan stress test. Echo showed normal LV systolic function with EF of 55- 60%. Lexisan stress test was not performed. Patient reports his chest pain, dyspnea and palpitation resolved. Patient is medically stable to discharge home with f/u appointment with Dr. Sultana on 03/29/18 at 11 am. Advised to continue with home medication. Additional new medications as follows: Asprin 81 mg po qd Eliquis 5 mg po bid Cardizem 30 mg po qid Discharge Exam - Head Exam Head Exam: ATRAUMATIC, NORMOCEPHALIC - Eye Exam Eye Exam: EOMI, Normal appearance - ENT Exam ENT Exam: Mucous Membranes Moist - Respiratory Exam Respiratory Exam: Clear to PA & Lateral, NORMAL BREATHING PATTERN. absent: Rales, Rhonchi, Wheezes - Cardiovascular Exam Cardiovascular Exam: +S1, +S2 - GI/Abdominal Exam GI & Abdominal Exam: Normal Bowel Sounds, Soft. absent: Tenderness - Extremities Exam Extremities exam: normal capillary refill, pedal pulses present - Neurological Exam Neurological exam: Alert, Oriented x3 - Psychiatric Exam Psychiatric exam: Normal Affect, Normal Mood - Skin Skin Exam: Normal Color, Warm Discharge Plan - Discharge Medications Prescriptions: Apixaban [Eliquis] 5 mg PO BID #60 tablet Aspirin [Ecotrin] 81 mg PO DAILY #30 tabec diltiaZEM [Cardizem] 30 mg PO QID #120 tab - Follow Up Plan Condition: CRITICAL Disposition: HOME/ ROUTINE Instructions: Atrial Fibrillation (DC), High Blood Pressure (DC), Acute Kidney Injury (DC) Additional Instructions: albert drake doctor mary 03/29/18 11;00am Referrals: Stalin Sultana MD [Staff Provider] - Aide Shields MD [Family Provider] -
== END 2018-03-18 14:22 | disposition home or self-care (01) | DRG 308 ==
LOC: H.ER 16:39 → H.ERHOLD 18:39 → H.TEL 22:18
PROVIDERS: ADMIT Internal Medicine; ATTEND Internal Medicine
PROC: 3E0234Z Introduction of Serum, Toxoid and Vaccine into Muscle, Percutaneous Approach (ICD-10-PCS; principal; 2018-03-17)
DX: I48.91 Unspecified atrial fibrillation (principal); I50.31 Acute diastolic (congestive) heart failure; N17.9 Acute kidney failure, unspecified; I11.0 Hypertensive heart disease with heart failure; D69.59 Other secondary thrombocytopenia; I34.0 Nonrheumatic mitral (valve) insufficiency; I45.4 Nonspecific intraventricular block; Z23 Encounter for immunization; I25.2 Old myocardial infarction; Z79.01 Long term (current) use of anticoagulants; Z79.82 Long term (current) use of aspirin

== ENCOUNTER 2018-04-16 20:59 | Inpatient (IN) | payer BC ==
[2018-04-16] MEDS ORDERED: Albuterol-Ipratrop 3 mg / 0.5 (3 ml) UD ONE (21:24)
[2018-04-16] MEDS ORDERED: Nitroglycerin 2% Ointment Foilpak UD TOP ONE (21:25)
[2018-04-16 21:39] LABS: BASO # 0.1 K/uL (0.0-0.2); BASO % 1.1 % (0.0-2.0); EOS # 0.2 K/uL (0.0-0.7); EOS % 1.9 % (0.0-4.0); HEMOGLOBIN 16.1 g/dL (12.0-18.0); LYMPH # 1.7 K/uL (1.0-4.3); LYMPH % 13.7 % (20.0-40.0); MEAN CELL VOLUME 87.5 fl (80.0-94.0); MEAN CORPUSCULAR HEMOGLOBIN 29.1 pg (27.0-31.0); MEAN CORPUSCULAR HGB CONC 33.3 g/dL (33.0-37.0); MEAN PLATELET VOLUME 11.4 fl (7.2-11.7); MONO # 1.2 K/uL (0.0-0.8); MONO % 9.2 % (0.0-10.0); NEUT # 9.3 K/uL (1.8-7.0); NEUT % 74.1 % (50.0-75.0); NRBC % 0.1 % (0.0-0.0); RBC 5.51 Mil/uL (4.40-5.90); WHITE BLOOD COUNT 12.6 K/uL (4.8-10.8)
[2018-04-16] MEDS ORDERED: Albuterol-Ipratrop 3 mg / 0.5 (3 ml) UD INH STA ×2 (22:07)
[2018-04-16] MEDS ORDERED: Nitroglycerin 2% Ointment Foilpak UD TOP STA (22:07)
[2018-04-16 22:14] LABS: ALB/GLOB RATIO 1.3 (1.0-2.1); ALBUMIN 3.8 g/dL (3.5-5.0); ALT/SGPT 98 U/L (21-72); AST/SGOT 49 U/L (17-59); BLOOD UREA NITROGEN 29 mg/dl (9-20); CALCIUM 9.3 mg/dL (8.4-10.2); GFR NON-AFRICAN AMERICAN 53
[2018-04-16 22:15] LABS: B-TYPE NATRIURETIC PEPTIDE 6920 pg/ml (0-900)
[2018-04-16 22:17] LABS: INR 1.5; PROTHROMBIN TIME 16.7 Seconds (9.8-13.1)
[2018-04-16 22:20] LABS: PARTIAL THROMBOPLASTIN TIME 32.8 Seconds (25.6-37.1)
--- NOTE | 2018-04-16 22:36 | ED PDOC ---
HPI: SOB/CHF/COPD Time Seen by Provider: 04/16/18 21:06 Chief Complaint (Nursing): Shortness Of Breath Chief Complaint (Provider): Shortness of Breath History Per: Patient History/Exam Limitations: no limitations Onset/Duration Of Symptoms: Days (x3) Current Symptoms Are (Timing): Still Present Additional Complaint(s): 52 year old male presents to the ED complaining of shortness of breath for 3 days which has been getting progressively worse. Patient is also reporting a cough with yellow sputum production. Denies chest pain. He states he has right lower extremity swelling. PMD: none provided Past Medical History Reviewed: Historical Data, Nursing Documentation, Vital Signs Vital Signs: Last Vital Signs Temp 97 F L 04/16/18 21:03 Pulse 77 04/16/18 22:11 Resp 22 04/16/18 21:53 BP 165/106 H 04/16/18 22:11 Pulse Ox 93 L 04/16/18 21:53 - Medical History PMH: Atrial Fibrillation, CHF, HTN - Family History Family History: States: Unknown Family Hx - Immunization History Hx Tetanus Toxoid Vaccination: No Hx Influenza Vaccination: No Hx Pneumococcal Vaccination: No - Home Medications Home Medications: Ambulatory Orders Medication Instructions Recorded Valsartan/Hydrochlorothiazide 1 tab PO DAILY 03/16/18 [Valsartan-Hctz 320-25 mg Tab] Apixaban [Eliquis] 5 mg PO BID #60 tablet 03/18/18 Aspirin [Ecotrin] 81 mg PO DAILY #30 tabec 03/18/18 diltiaZEM [Cardizem] 30 mg PO QID #120 tab 03/18/18 - Allergies Allergies/Adverse Reactions: Allergies Allergy/AdvReac Type Severity Reaction Status Date / Time No Known Allergies Allergy Unverified 04/16/18 21:03 Review of Systems ROS Statement: Except As Marked, All Systems Reviewed And Found Negative Cardiovascular: Negative for: Chest Pain Respiratory: Positive for: Cough, Shortness of Breath Musculoskeletal: Positive for: Other (Right lower extremity swelling) Physical Exam - Reviewed Nursing Documentation Reviewed: Yes Vital Signs Reviewed: Yes - Physical Exam Appears: Positive for: Non-toxic, No Acute Distress (Unable to speak full sentences) Head Exam: Positive for: ATRAUMATIC, NORMOCEPHALIC Skin: Positive for: Normal Color, Warm, Dry Eye Exam: Positive for: Normal appearance Neck: Positive for: Normal, Painless ROM Cardiovascular/Chest: Positive for: Regular Rate, Rhythm. Negative for: Murmur Respiratory: Positive for: Normal Breath Sounds, Respiratory Distress (Moderate) Pulses-Dorsalis Pedis (L): 2+ Pulses-Dorsalis Pedis (R): 2+ Gastrointestinal/Abdominal: Positive for: Normal Exam, Soft. Negative for: Tenderness Extremity: Positive for: Normal ROM, Other (pulse 2+ edema bilaterally) Neurologic/Psych: Positive for: Alert, Oriented. Negative for: Motor/Sensory Deficits - Laboratory Results Result Diagrams: 04/16/18 21:34 04/16/18 21:34 - ECG O2 Sat by Pulse Oximetry: 93 (RA) Pulse Ox Interpretation: Normal - Radiology X-Ray: Interpreted by [facility] X-Ray Interpretation: Other (Pulmonary congestion) - Progress Re-evaluation Time: 23:00 Condition: Improved Medical Decision Making Medical Decision Making: Initial Impression: Dysnpea, CHF, PE Initial Plan: --Angio chest CT --ECG --Pro BNP --CMP --Magnesium stat --Phosphorous stat --Troponin stat --CBC --D Dimer --PTT --Prothrombin time --Chest X-ray --Albuterol 3mL INH --Lasix 40mg IV --Nitroglycerin 2% TOP --Peak flow --US duplex lower extremities According to old records, patient was admitted to this hospital for new onset A fib and CHF. Patient was discharged on aspirin, eliquis, and cardizem. Patient states he is compliant with medications. 23:[address] chest read verbal report from [facility]: no PE, moderate pleural effusions. Scribe Attestation: Documented by Rod Pagan acting as a scribe for Marquita Fitzgerald MD. Provider Scribe Attestation: All medical record entries made by the Scribe were at my direction and personally dictated by me. I have reviewed the chart and agree that the record accurately reflects my personal performance of the history, physical exam, medical decision making, and the department course for this patient. I have also personally directed, reviewed, and agree with the discharge instructions and disposition. Disposition - Clinical Impression Clinical Impression: Atrial fibrillation, CHF exacerbation - Patient ED Disposition Is Patient to be Admitted: Yes - Disposition Disposition Time: 23:49 Condition: STABLE Forms: [employer] ([place]) - Pt Status Changed To: Hospital Disposition Of: Inpatient - Admit Certification Admit to Inpatient:: After my assessment, the patient will require hospitalization for at least two midnights. This is because of the severity of symptoms shown, intensity of services needed, and/or the medical risk in this patient being treated as an outpatient. - POA Present On Arrival: None
[2018-04-16] MEDS ORDERED: Sodium Chloride 0.9% 50 ML IV ONE (22:50)
[2018-04-16] MEDS ORDERED: Iodixanol 320 MG/ML 100 ML BOTTLE IV ONE (22:50)
--- NOTE | 2018-04-17 00:32 | CP.PCM.HP ---
Addendum entered and electronically signed by Evaristo Woods MD 04/17/18 17:07: Patient seen and examined bedside. All chart and clinical data reviewed . Case discussed with resident . Agree with assessment and plan. Continue telemetry monitoring and diuresis Addendum entered and electronically signed by Frank Moise MD 04/17/18 13:10: Patient seen at bedside resting comfortably eating his breakfast. States he is f eeling better and his breathing has improved and is feeling less SOB. Denies any chest pain N/V/D. Gen: NAD CVS: Irregular rhythum, S1S2 heard no M/R./G Resp: Bi basilar rales present Ext: No pedal edema noted Mx: Continue with current medical management and monitor on telemetry. C/W with Lasix Original Note: <Eligio Sofia - Last Filed: 04/17/18 01:03> History of Present Illness - History of Present Illness History of Present Illness: [facility]#: [id number] CC: "giorgio been short of breath for three days and its getting worse" HPI: 52 y/o male, with PMHx of Atrial fibrillation, HF with preserved EF, and HTN presented for evaluation of worsening SOB. 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 It was acute onset, associated with palpitations and nausea. He went home after work and had difficulty sleeping due to coughing and SOB. He reports he normally sleeps flats normally, but has been unable to these past 3 days. He has had worsening dyspena on exertion and has been otherwise sedentary upon onset of symptoms. Last night, he was unable to sleep as well. Today the SOB kept worsening, he had several episodes of post-tussive emesis. He reports associated nausea and loss of appetite. He denies any fever/chills, headaches, changes in vision, CP/pedal edema, D/C, urinary symptoms, numbness/tingling. ROS: 12 systems reviewed, found to be negative unless otherwise mentioned in HPI PMD: [place] PMHx: HTN, AFib, HF with preserved EF MEDS: as per med rec ALL: NKDA SurgHx: none SocialHx: denies tobacco/Etoh or drugs FamilyHx: mother at 75 from [place], father is 86 and healthy, all siblings are healthy Present on Admission - Present on Admission Any Indicators Present on Admission: No History of DVT/PE: No History of Uncontrolled Diabetes: No Urinary Catheter: No Decubitus Ulcer Present: No Past Patient History - Past Social History Smoking Status: Never Smoked Alcohol: None Drugs: Denies Home Situation {Lives}: With Family - CARDIAC Hx Atrial Fibrillation: Yes Hx Congestive Heart Failure: Yes Hx Hypertension: Yes - MUSCULOSKELETAL/RHEUMATOLOGICAL Hx Falls: Yes - PSYCHIATRIC Hx Substance Use: No - ANESTHESIA Hx Anesthesia: No Hx Anesthesia Reactions: No Meds Allergies/Adverse Reactions: Allergies Allergy/AdvReac Type Severity Reaction Status Date / Time No Known Allergies Allergy Unverified 04/16/18 21:03 Physical Exam - Constitutional Appears: Non-toxic, No Acute Distress - Head Exam Head Exam: ATRAUMATIC, NORMOCEPHALIC - Eye Exam Eye Exam: EOMI. absent: Nystagmus, Scleral icterus Pupil Exam: PERRL - ENT Exam ENT Exam: Mucous Membranes Moist - Neck Exam Neck exam: Negative for: Thyromegaly - Respiratory Exam Respiratory Exam: Rales (bibasilar rales ), NORMAL BREATHING PATTERN. absent: Accessory Muscle Use, Decreased Breath Sounds, Clear to Auscultation Bilateral, Rhonchi, Wheezes, Respiratory Distress - Cardiovascular Exam Cardiovascular Exam: Irregular Rhythm, +S1, +S2. absent: Tachycardia, REGULAR RHYTHM, JVD, RRR, Rubs, Systolic Murmur - GI/Abdominal Exam GI & Abdominal Exam: Normal Bowel Sounds, Soft. absent: Tenderness - Extremities Exam Extremities exam: Positive for: normal capillary refill, normal inspection, pedal pulses present. Negative for: pedal edema, tenderness - Neurological Exam Neurological exam: Alert, CN II-XII Intact, Oriented x3 - Psychiatric Exam Psychiatric exam: Normal Affect, Normal Mood - Skin Skin Exam: Dry, Normal Color, Warm Results - Vital Signs Recent Vital Signs: Last Vital Signs Temp 97 F L 04/16/18 21:03 Pulse 77 04/16/18 22:11 Resp 22 04/16/18 21:53 BP 152/103 H 04/16/18 22:48 Pulse Ox 93 L 04/16/18 23:50 - Labs Result Diagrams: 04/16/18 21:34 04/16/18 21:34 Labs: Laboratory Results - last 24 hr 10/06/2204/16/18 04/16/18 21:34 21:34 21:34 WBC 12.6 H RBC 5.51 Hgb 16.1 Hct 48.2 MCV 87.5 MCH 29.1 MCHC 33.3 RDW 17.0 H Plt Count 143 MPV 11.4 Neut % (Auto) 74.1 Lymph % (Auto) 13.7 L [place] % (Auto) 9.2 Eos % (Auto) 1.9 Baso % (Auto) 1.1 Neut # (Auto) 9.3 H Lymph # (Auto) 1.7 [place] # (Auto) 1.2 H Eos # (Auto) 0.2 Baso # (Auto) 0.1 PT 16.7 H INR 1.5 APTT 32.8 D-Dimer, Quantitative 594 H Sodium 136 Potassium 4.4 Chloride 107 Carbon Dioxide 20 L Anion Gap 13 BUN 29 H Creatinine 1.4 Est GFR ( Amer) > 60 Est GFR (Non-Af Amer) 53 Random Glucose 109 Calcium 9.3 Total Bilirubin 0.8 AST 49 ALT 98 H Alkaline Phosphatase 73 Troponin I 0.0930 NT-Pro-B Natriuret Pep 6920 H Total Protein 6.8 Albumin 3.8 Globulin 3.0 Albumin/Globulin Ratio 1.3 Assessment & Plan - Assessment and Plan (Free Text) Assessment: 52 y/o male with PMHx of Afib, HTN, HF with preserved EF admitted for acute exacerbation of CHF. Plan: 1) Acute exacerbation of CHF with preserved EF -EKG: afib, rate controlled at 60bpm, no acute changes -CXR: cardiomegaly, pulmonary congestion, left pleural effusion -Chest CTA: no PE, pleural effusions -NT-Pro-BNP: 6920 -Troponin I : 0.0930 -CBC: 12.6>16.1/48.2<143 -CMP: BUN/Cr: 29/1.4 -s/p 40mg IVP lasix in ED -c/w lasix 40mg IVP BID -trend troponin Q6H -repeat AM EKG -head of bed elevation -strict I/Os -daily weight -tele monitoring -repeat AM labs 2) Hypertension -uncontrolled -resume home meds -lasix 40mg IVP BID -monitor 3) Atrial Fibrillation -rate controlled -resume cardizem -resume eliquis -tele monitoring 4) Pleural Effusion -likely 2/2 to Acute CHF -lasix as above 5) Prophylaxis -c/w eliquis 5mg 6) Diet -heart healthy/low Na 7) Code Status -full code <Rishi Mckeon - Last Filed: 04/17/18 06:23> Results - Vital Signs Recent Vital Signs: Last Vital Signs Temp 97.7 F 04/17/18 05:22 Pulse 78 04/17/18 05:22 Resp 20 04/17/18 05:22 BP 156/93 H 04/17/18 05:22 Pulse Ox 98 04/17/18 05:22 - Labs Result Diagrams: 04/16/18 21:34 04/17/18 05:00 Labs: Laboratory Results - last 24 hr 04/16/18 04/16/18 04/16/18 21:34 21:34 21:34 WBC 12.6 H RBC 5.51 Hgb 16.1 Hct 48.2 MCV 87.5 MCH 29.1 MCHC 33.3 RDW 17.0 H Plt Count 143 MPV 11.4 Neut % (Auto) 74.1 Lymph % (Auto) 13.7 L [place] % (Auto) 9.2 Eos % (Auto) 1.9 Baso % (Auto) 1.1 Neut # (Auto) 9.3 H Lymph # (Auto) 1.7 [place] # (Auto) 1.2 H Eos # (Auto) 0.2 Baso # (Auto) 0.1 PT 16.7 H INR 1.5 APTT 32.8 D-Dimer, Quantitative 594 H Sodium 136 Potassium 4.4 Chloride 107 Carbon Dioxide 20 L Anion Gap 13 BUN 29 H Creatinine 1.4 Est GFR ( Amer) > 60 Est GFR (Non-Af Amer) 53 Random Glucose 109 Calcium 9.3 Total Bilirubin 0.8 AST 49 ALT 98 H Alkaline Phosphatase 73 Troponin I 0.0930 NT-Pro-B Natriuret Pep 6920 H Total Protein 6.8 Albumin 3.8 Globulin 3.0 Albumin/Globulin Ratio 1.3 04/17/18 05:00 WBC RBC Hgb Hct MCV MCH MCHC RDW Plt Count MPV Neut % (Auto) Lymph % (Auto) [place] % (Auto) Eos % (Auto) Baso % (Auto) Neut # (Auto) Lymph # (Auto) [place] # (Auto) Eos # (Auto) Baso # (Auto) PT INR APTT D-Dimer, Quantitative Sodium 142 Potassium 3.2 L Chloride 112 H Carbon Dioxide 23 Anion Gap 10 BUN 25 H Creatinine 1.2 Est GFR ( Amer) > 60 Est GFR (Non-Af Amer) > 60 Random Glucose 81 Calcium 8.3 L Total Bilirubin 1.1 AST 40 ALT 88 H Alkaline Phosphatase 54 Troponin I 0.0880 NT-Pro-B Natriuret Pep Total Protein 6.1 L Albumin 3.2 L Globulin 2.9 Albumin/Globulin Ratio 1.1 Attending/Attestation - Attestation I have personally seen and examined this patient.: Yes I have fully participated in the care of the patient.: Yes I have reviewed all pertinent clinical information: Yes Notes (Text): 04/17/18 06:17 I Saw and examined this patient shoulder to shoulder to Dr Sofia. I agree with the assessment and plan above. This is a 52 years old male with khx of A Fib, CHF and HTN with 3 days of worsening SOB, with CXR showing bilateral lung congestion and elevated Pro BNP. Treat with Losartan, IV lasix. the patient was on Cardizem for rate control of the A Fib but may benefit from Metoprolol. Geeta Mckeon MD
[2018-04-17 05:22] LABS: ALB/GLOB RATIO 1.1 (1.0-2.1); ALBUMIN 3.2 g/dL (3.5-5.0); ALT/SGPT 88 U/L (21-72); AST/SGOT 40 U/L (17-59); BLOOD UREA NITROGEN 25 mg/dl (9-20); CALCIUM 8.3 mg/dL (8.4-10.2); GFR NON-AFRICAN AMERICAN > 60
[2018-04-17] MEDS ORDERED: Potassium Chloride 20 mEq/15 ml LIQ UD PO ONE (07:34)
--- NOTE | 2018-04-17 07:44 | RAD ---
Date of service: 04/16/2018 HISTORY: SOB COMPARISON: Comparison is made with 03/16/2018 FINDINGS: LUNGS: Mild pulmonary vascular congestion is again noted. No evidence of new infiltrate or consolidation in the lungs. PLEURA: Blunting of the costophrenic angle. CARDIOVASCULAR: The cardiac silhouette is enlarged. OSSEOUS STRUCTURES: No significant abnormalities. VISUALIZED UPPER ABDOMEN: Normal. OTHER FINDINGS: None. IMPRESSION: Pulmonary vascular congestion and cardiomegaly suspicious for congestive heart failure. No significant interval changes.
[2018-04-17 07:54] LABS: HEMOGLOBIN 15.2 g/dL (12.0-18.0); MEAN CELL VOLUME 87.7 fl (80.0-94.0); MEAN CORPUSCULAR HGB CONC 33.1 g/dL (33.0-37.0); RBC 5.22 Mil/uL (4.40-5.90); RED CELL DISTRIBUTION WIDTH 16.5 % (11.5-14.5); WHITE BLOOD COUNT 10.4 K/uL (4.8-10.8)
[2018-04-17] MEDS ORDERED: Potassium Chloride 8 MEQ TER PO SCH (09:00)
--- NOTE | 2018-04-17 10:26 | CARD ---
APPROVED REPORT Date of service: 04/16/2018 EKG Measurement Heart [id number] <Conclusion> Atrial fibrillation Left bundle branch block Abnormal ECG
[2018-04-17] MEDS: Potassium Chloride 20 mEq ER Tab PO SCH (13:03)
--- NOTE | 2018-04-17 15:19 | US ---
Date of service: 04/16/2018 PROCEDURE: Bilateral lower extremity venous duplex Doppler. HISTORY: Swelling, SOB COMPARISON: None available. TECHNIQUE: Bilateral common femoral, superficial femoral, popliteal and posterior tibial veins were evaluated. Flow was assessed with color Doppler, compressibility, assessment of phasic flow and augmentation response. FINDINGS: COMMON FEMORAL VEIN: Right CFV: Unremarkable. Left CFV: Unremarkable. SUPERFICIAL FEMORAL VEIN: Right SFV: Unremarkable. Left SFV: Unremarkable. POPLITEAL VEIN: Right Popliteal: Unremarkable. Left Popliteal: Unremarkable. POSTERIOR TIBIAL VEIN: Right PTV: Unremarkable. Left PTV: Unremarkable. OTHER FINDINGS: None. IMPRESSION: No evidence of deep venous thrombosis. Preliminary report was submitted at 11:24 p.m. on 04/16/2018
--- NOTE | 2018-04-17 17:49 | CT ---
Date of service: 04/16/2018 PROCEDURE: CT Chest with contrast (Pulmonary Angiogram) HISTORY: SOB COMPARISON: None available. TECHNIQUE: Axial computed tomography images were obtained of the chest in the pulmonary arterial phase of enhancement. Coronal and sagittal reformatted images were created and reviewed. Intravenous contrast dose: 90 mL of Visipaque 320 Radiation dose: Total exam DLP = 352.07 mGy-cm. This CT exam was performed using one or more of the following dose reduction techniques: Automated exposure control, adjustment of the mA and/or kV according to patient size, and/or use of iterative reconstruction technique. FINDINGS: PULMONARY ARTERIES: No evidence of the central pulmonary embolus up to the level of the subsegmental branches of the pulmonary arteries. AORTA: The thoracic aorta is not opacified in this study. The ascending thoracic aorta is mildly dilated measures up to 4.7 centimeter in the transverse diameter. LUNGS: Moderate pulmonary vascular congestion and diffuse ground-glass opacities in the lungs noted. There is bilateral atelectasis at the lung bases larger on the left. PLEURAL SPACES: Moderate bilateral pleural effusions. HEART: The heart is mildly to moderately enlarged. LYMPH NODES: No lymphadenopathy. BONES, CHEST WALL: Unremarkable. No fracture or destructive lesion OTHER FINDINGS: There is reflux of the contrast into the IVC and hepatic veins suggestive of right heart strain. IMPRESSION: No evidence of central pulmonary embolus. Cardiomegaly and moderate bilateral pleural effusion. Moderate pulmonary vascular congestion. [facility]
[2018-04-17] MEDS: Enoxaparin 80 mg Syringe SC SCH (21:23)
--- NOTE | 2018-04-18 08:00 | PCM.RRT ---
Addendum entered and electronically signed by Evaristo Woods MD 04/18/18 13:04: Patient seen and examined bedside.Agree with resident assessment and plan patient with left sided reproducible chest pain with palpation EKG showed AFib with no acute ST-T wave changes trop negative Chest pain most likely muskuloskeletal in nature patient hemodynamically stable Toradol given with relieve of pain patient has stress test scheduled as outpatient Addendum entered and electronically signed by Yara Vernon MD 04/18/18 08:48: Dr. Woods- [employer] leader Original Note: I.Reason for [employer] - A) Acute Change in Patient: Subjective: [employer]: Troy Noguera [employer] Time: 7:40am [employer] Location: [address] [place] [address] Telemetry [employer] Arrival: 7:41am [employer] Reason: Left sided chest pain for 1 hour S: 52 yo M admitted for CHF exacerbation, when examined at bedside this morning complained of Left sided chest pain that lasted for 1 hour. O: [employer] Vitals: BP 185/127, HR 84, T 98.4, Sat 95% General: Pleasant resting comfortably, NAD, AAOx3 HEENT: NCAT, PERRLA Cardiac: Reproducible chest pain, Preexisting a fib, + S1 S2, no murmurs rubs or gallops Resp: CTA, no wheezes, rales or rhonchi appreciated Abdo: Soft non tender, nondistended, + BS heard throughout Extremities: No pitting edema B/L [employer] intervention: EKG, Troponins, BMP, CMP, MG, Phos, Sublingual Nitroglycerin 0.4mg, Toradol IVP Gave BP meds-Cardizem 30mg, Cozaar 100mg A/P: 52 yo m admitted for CHF exacerbation, complained of Left sided chest pain this morning for 1 hour [employer] Outcome: Patient stated his pain resolved after intervention. F/u Serial troponins and labs, Continue to monitor on telemetry Events- Otherwise no acute events [employer] vitals: BP 176/119, HR 66, T 98.1, O2 Sat 99% [employer] end: 7:55am [employer] Leader: Dr. Rishi Mckeon [employer] residents: Dr. Frank Moise, Dr. Nakia Forman, Dr. Yara Vernon
[2018-04-18] MEDS: Potassium Chloride 20 mEq ER Tab PO SCH (08:26)
[2018-04-18] MEDS: Enoxaparin 80 mg Syringe SC SCH (08:31)
[2018-04-18] MEDS ORDERED: Potassium Chloride 20 mEq/15 ml LIQ UD PO ONE (09:14)
[2018-04-18 10:03] LABS: BASO # 0.1 K/uL (0.0-0.2); BASO % 0.6 % (0.0-2.0); EOS # 0.3 K/uL (0.0-0.7); EOS % 2.9 % (0.0-4.0); HEMOGLOBIN 16.4 g/dL (12.0-18.0); LYMPH # 0.9 K/uL (1.0-4.3); LYMPH % 8.2 % (20.0-40.0); MEAN CELL VOLUME 87.7 fl (80.0-94.0); MEAN CORPUSCULAR HEMOGLOBIN 28.9 pg (27.0-31.0); MEAN PLATELET VOLUME 11.3 fl (7.2-11.7); MONO # 0.9 K/uL (0.0-0.8); MONO % 8.2 % (0.0-10.0); NEUT # 8.6 K/uL (1.8-7.0); NEUT % 80.1 % (50.0-75.0); NRBC % 0.1 % (0.0-0.0); PLATELET COUNT 135 K/uL (130-400); RBC 5.67 Mil/uL (4.40-5.90); RED CELL DISTRIBUTION WIDTH 16.5 % (11.5-14.5); WHITE BLOOD COUNT 10.7 K/uL (4.8-10.8)
[2018-04-18 10:07] LABS: ALB/GLOB RATIO 1.2 (1.0-2.1); ALBUMIN 3.7 g/dL (3.5-5.0); ALT/SGPT 83 U/L (21-72); AST/SGOT 39 U/L (17-59); BLOOD UREA NITROGEN 25 mg/dl (9-20); CALCIUM 9.2 mg/dL (8.4-10.2); GFR NON-AFRICAN AMERICAN 53
[2018-04-18 11:14] LABS: BANDS 1 % (0-2); EOSINOPHIL 3 % (0-7); LYMPHOCYTE 13 % (20-50); MONOCYTE 5 % (0-10); NEUTROPHIL 78 % (42-75); TOTAL CELLS COUNTED 100
[2018-04-18 11:15] LABS: HYPOCHROMIC SLIGHT; PLATELET ESTIMATE NORMAL (NORMAL); TOXIC GRANULATION PRESENT
[2018-04-18 12:04] VITALS: BP 142/94; PULSE 74; RESP 20; TEMP 97.5; O2SAT 97
--- NOTE | 2018-04-18 13:09 | CP.PCM.DIS ---
Addendum entered and electronically signed by Evaristo Woods MD 04/18/18 14:40: Patient seen and examined bedside.All chart and clinical data reviewed. case discussed with resident . Agree with assessment and discharge planning. 52 y/o male with PMH Afib , preserved EF CHF , HTN presented with SOB and admitted for acute CHF exacerbation . He was started on Lasix IV 40 Mg Q12 and supplements. 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 Stress test as outpatient on 04/26 Dx Acute CHF exacerbation with preserved EF Chronic Afib - rate controlled Uncontrolled HTN Costochondritis Original Note: Provider - Provider Date of Admission: 04/16/18 23:47 Attending physician: Rishi Mckeon Time Spent in preparation of Discharge (in minutes): 30 Hospital Course - Lab Results Lab Results: Most Recent Lab Values WBC 10.7 K/uL (4.8-10.8) 04/18/18 09:00 RBC 5.67 Mil/uL (4.40-5.90) 04/18/18 09:00 Hgb 16.4 g/dL (12.0-18.0) 04/18/18 09:00 Hct 49.7 % (35.0-51.0) 04/18/18 09:00 MCV 87.7 fl (80.0-94.0) 04/18/18 09:00 MCH 28.9 pg (27.0-31.0) 04/18/18 09:00 MCHC 33.0 g/dL (33.0-37.0) 04/18/18 09:00 RDW 16.5 % (11.5-14.5) H 04/18/18 09:00 Plt Count 135 K/uL (130-400) 04/18/18 09:00 MPV 11.3 fl (7.2-11.7) 04/18/18 09:00 Neut % (Auto) 80.1 % (50.0-75.0) H 04/18/18 09:00 Lymph % (Auto) 8.2 % (20.0-40.0) L 04/18/18 09:00 Karnes % (Auto) 8.2 % (0.0-10.0) 04/18/18 09:00 Eos % (Auto) 2.9 % (0.0-4.0) 04/18/18 09:00 Baso % (Auto) 0.6 % (0.0-2.0) 04/18/18 09:00 Neut # (Auto) 8.6 K/uL (1.8-7.0) H 04/18/18 09:00 Lymph # (Auto) 0.9 K/uL (1.0-4.3) L 04/18/18 09:00 Karnes # (Auto) 0.9 K/uL (0.0-0.8) H 04/18/18 09:00 Eos # (Auto) 0.3 K/uL (0.0-0.7) 04/18/18 09:00 Baso # (Auto) 0.1 K/uL (0.0-0.2) 04/18/18 09:00 Neutrophils % (Manual) 78 % (42-75) H 04/18/18 09:00 Band Neutrophils % 1 % (0-2) 04/18/18 09:00 Lymphocytes % (Manual) 13 % (20-50) L 04/18/18 09:00 Monocytes % (Manual) 5 % (0-10) 04/18/18 09:00 Eosinophils % (Manual) 3 % (0-7) 04/18/18 09:00 Toxic Granulation Present 04/18/18 09:00 Platelet Estimate Normal (NORMAL) 04/18/18 09:00 Hypochromasia (manual) Slight 04/18/18 09:00 PT 16.7 Seconds (9.8-13.1) H 04/16/18 21:34 INR 1.5 04/16/18 21:34 APTT 32.8 Seconds (25.6-37.1) 04/16/18 21:34 D-Dimer, Quantitative 594 ng/mlDDU (0-230) H 04/16/18 21:34 Sodium 140 mmol/l (132-148) 04/18/18 09:00 Potassium 4.1 MMOL/L (3.6-5.0) 04/18/18 09:00 Chloride 107 mmol/L (98-107) 04/18/18 09:00 Carbon Dioxide 29 mmol/L (22-30) 04/18/18 09:00 Anion Gap 8 (10-20) L 04/18/18 09:00 BUN 25 mg/dl (9-20) H 04/18/18 09:00 Creatinine 1.4 mg/dl (0.8-1.5) 04/18/18 09:00 Est GFR ( Amer) > 60 04/18/18 09:00 Est GFR (Non-Af Amer) 53 04/18/18 09:00 Random Glucose 103 mg/dL (75-110) 04/18/18 09:00 Calcium 9.2 mg/dL (8.4-10.2) 04/18/18 09:00 Phosphorus 3.6 mg/dl (2.5-4.5) 04/18/18 09:00 Magnesium 2.0 MG/DL (1.6-2.3) 04/18/18 09:00 Total Bilirubin 1.2 mg/dl (0.2-1.3) 04/18/18 09:00 AST 39 U/L (17-59) 04/18/18 09:00 ALT 83 U/L (21-72) H 04/18/18 09:00 Alkaline Phosphatase 67 U/L (38-126) 04/18/18 09:00 Troponin I 0.0910 ng/mL (0.00-0.120) 04/18/18 09:00 NT-Pro-B Natriuret Pep 6920 pg/ml (0-900) H 04/16/18 21:34 Total Protein 6.9 G/DL (6.3-8.2) 04/18/18 09:00 Albumin 3.7 g/dL (3.5-5.0) 04/18/18 09:00 Globulin 3.2 gm/dL (2.2-3.9) 04/18/18 09:00 Albumin/Globulin Ratio 1.2 (1.0-2.1) 04/18/18 09:00 - Hospital Course Hospital Course: 52 y/o male with PMHx of Afib, HTN, HF with preserved EF admitted for acute exacerbation of CHF. Plan: 1) Acute exacerbation of CHF with preserved EF -EKG: afib, rate controlled at 60bpm, no acute changes -CXR on admission: cardiomegaly, pulmonary congestion, left pleural effusion -Chest CTA: no PE, pleural effusions -NT-Pro-BNP: 6920 - Patient was monitored in telemetry and given Lasix 40 mg IVP BID. Troponin x 3 negative - Discharging on Lasix 40 mg PO daily 2) Costocondritis: Patient had an episode of chest pain which was reproducible on palpation this morning. [facility] was called. Patient was given toradol 30 mg IVP which helped with his chest pain. Nitoglycerin x 1 was also given. EKG: Was consistent with baseline. No ischemic changes noted. Troponin x 3 negative. - Chest pain most likely secondary to cough/ costocondritis - Has an appointment for a stress test outpatient on 04/26/18. Currently asymptomatic on discharge. 2) Hypertension -resume home meds - monitor 3) Atrial Fibrillation -rate controlled -cw cardizem - eliquis 5 Discharge Exam - Head Exam Head Exam: ATRAUMATIC, NORMOCEPHALIC - Eye Exam Eye Exam: Normal appearance - Respiratory Exam Respiratory Exam: Chest Wall Tenderness, NORMAL BREATHING PATTERN. absent: Wheezes, Respiratory Distress - GI/Abdominal Exam GI & Abdominal Exam: Normal Bowel Sounds, Soft. absent: Tenderness - Extremities Exam Extremities exam: normal inspection - Neurological Exam Neurological exam: Alert, CN II-XII Intact, Oriented x3 Discharge Plan - Discharge Medications Prescriptions: Furosemide [Lasix] 40 mg PO DAILY #30 tablet Losartan [Cozaar] 100 mg PO DAILY #30 tab Potassium Chloride [K-Dur 20 mEq ER Tab] 20 meq PO DAILY #30 tab - Follow Up Plan Condition: STABLE Disposition: HOME/ ROUTINE Instructions: Atrial Fibrillation (DC), Heart Failure and Atrial Fibrillation Additional Instructions: Medication has been sent to the pharmacy - Follow up with PMD in 1-2 days F/U with stress test on 04/26/[address] Rey. Return to ER if symptoms worsen or reoccur. Clinical Quality Measures - CQM - Heart Failure Ejection Fraction: 40 % or Greater Angiotensin II Receptor Vincent Prescribed: Yes AnticoagulationTherapy for Atrial Fibrillation/Atrialflutter: Yes Will be discharged to: Home Follow Up Date (must be within 7 days from discharge): 04/23/18
--- NOTE | 2018-04-18 18:36 | PN ---
ADDENDUM DATE: 04/18/2018 As I was trying to enter orders for n.p.o. for planned cardiac catheterization for tomorrow, I found that the patient was already discharged by the primary physician. I did speak to the resident team and explained to them that the patient does have cardiomyopathy and cardiac catheterization is indicated. Eric Miles MD DATE: 04/18/2018 SUBJECTIVE: The patient's shortness of breath improved. No chest pain. PHYSICAL EXAMINATION: VITAL SIGNS: Blood pressure 142/94, heart rate 74, temperature 97.5, respirations 20. HEENT: Normocephalic. CHEST: Minimal basilar rales. HEART: S1 and S2, regular. ABDOMEN: Soft. EXTREMITIES: No edema. LABORATORY DATA: Today's SMA-7: Sodium , potassium 4.1, chloride 104, CO2 of 29, glucose 103, BUN 25, and creatinine 1.4. Today's hemoglobin and hematocrit are 16.4 and 49.7. White count and platelet count within normal limit. ASSESSMENT: 1. Congestive heart failure. 2. Chronic atrial fibrillation. 3. Significant mitral and aortic insufficiency. 4. Mild prerenal azotemia. RECOMMENDATIONS: Continue Cardizem at 30 mg four times a day, Cozaar 100 mg once a day, aspirin 81 mg once a day, Lasix 40 mg intravenously twice a day, K-Dur 20 mEq orally once a day, therapeutic subcutaneous Lovenox at 80 mg twice a day. The plan is to transfer the patient for cardiac cath tomorrow at [facility] once the schedule allows. For that reason, a.m. Lovenox will be withheld. Eric Miles MD MTDD
--- NOTE | 2018-04-18 23:11 | CARD ---
APPROVED REPORT Date of service: 04/18/2018 EKG Measurement Heart [id number] <Conclusion> Atrial fibrillation with rapid ventricular response Nonspecific intraventricular block Abnormal ECG
--- NOTE | 2018-04-19 08:55 | CON ---
DATE: 04/17/2018 REASON FOR CONSULTATION: Congestion heart failure and atrial fibrillation. HISTORY OF PRESENT ILLNESS: The patient is a 52-year-old male who is a very poor historian and who is admitted last month on March 16 because of atrial fibrillation and new-onset congestive heart failure. My own review of the echocardiographic study was consistent with moderately severe depressed ejection fraction and significant mitral as well as aortic insufficiencies. The patient was discharged on Eliquis. The echo report initially came out as normal ejection fraction, and subsequent addendum reported moderately depressed ejection fraction. The patient is still experiencing worsening of shortness of breath, cough, but denied any chest pain. The patient is unaware of any history of heart attack in the past. SOCIAL HISTORY: The patient is a nonsmoker. 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 MEDICATIONS: Current medications: Cardizem 30 mg p.o. 4 times a day, Cozaar 100 mg once a day, aspirin 81 mg once daily, Lasix 40 mg intravenously twice a day, Klor-Con 8 mEq daily, Eliquis 5 mg twice a day. REVIEW OF SYSTEMS: No nausea or vomiting. No fever or chills. PHYSICAL EXAMINATION: GENERAL: The patient is a middle-aged male who does not appear to be in acute distress. VITAL SIGNS: Blood pressure 156/92, heart rate 69, temperature 98, and respirations 22. HEENT: Normocephalic. CHEST: Bibasilar coarse crepitations HEART: S1, S2 regular. ABDOMEN: Soft. EXTREMITIES: No edema. LABORATORY DATA: Hemoglobin and hematocrit 15.2 and 45.8, white count 10.4, platelet counts today 116,000, and it was normal yesterday. INR is 1.5, D-dimer 594. SMA-7: Today's sodium 142, potassium 3.2, chloride 112, CO2 of 23, glucose 81, BUN 25, creatinine 1.2. Chest x-ray revealed cardiomegaly with mild CHF. EKG revealed atrial fibrillation at the rate of 76, left bundle branch block. Two sets of troponin are not in elevated range. ASSESSMENT: 1. Exacerbation of congestive heart failure. The patient has significant concentric left ventricular hypertrophy as well as significant depressed ejection fraction, restrictive cardiomyopathy in addition cannot be excluded because of the significant concentric left ventricular hypertrophy and the speckled nature of the myocardium on the echocardiographic study. 2. Significant mitral insufficiency and significant aortic insufficiency. 3. Chronic atrial fibrillation. 4. Hypokalemia. RECOMMENDATIONS: Continue Cardizem at 30 mg 4 times a day, Cozaar 100 mg once a day, increase calcium chloride replacement to 20 mEq orally daily. Continue Lasix 40 mg intravenously twice a day. Discontinue Eliquis and start therapeutic subcutaneous Lovenox at 80 mg twice a day. Cardiac catheterization is recommended and will be presented to the patient with a target to perform it on Thursday at [facility] to rule out ischemic cardiomyopathy and also to evaluate the severity of the mitral and aortic insufficiencies. Eric Miles MD
== END 2018-04-18 14:14 | disposition home or self-care (01) | DRG 293 ==
LOC: H.ER 20:59 → H.ERHOLD 23:47 → H.TEL 04-17 06:47
PROVIDERS: ADMIT Internal Medicine; ATTEND Internal Medicine
DX: I11.0 Hypertensive heart disease with heart failure (principal); I50.33 Acute on chronic diastolic (congestive) heart failure; I48.2 Chronic atrial fibrillation; M94.0 Chondrocostal junction syndrome [Tietze]; E87.6 Hypokalemia; I08.0 Rheumatic disorders of both mitral and aortic valves; I42.5 Other restrictive cardiomyopathy; J44.9 Chronic obstructive pulmonary disease, unspecified; Z79.01 Long term (current) use of anticoagulants; Z79.82 Long term (current) use of aspirin; M79.89 Other specified soft tissue disorders; R00.2 Palpitations

== ENCOUNTER 2018-07-06 07:15 | Inpatient (IN) | payer BC ==
[2018-07-06 07:29] VITALS: BMI 32.2
[2018-07-06 07:56] LABS: BASO # 0.1 K/uL (0.0-0.2); BASO % 0.7 % (0.0-2.0); EOS # 0.2 K/uL (0.0-0.7); EOS % 2.2 % (0.0-4.0); HEMOGLOBIN 15.7 g/dL (12.0-18.0); LYMPH # 1.5 K/uL (1.0-4.3); LYMPH % 17.2 % (20.0-40.0); MEAN CELL VOLUME 88.1 fl (80.0-94.0); MEAN CORPUSCULAR HEMOGLOBIN 29.4 pg (27.0-31.0); MEAN CORPUSCULAR HGB CONC 33.4 g/dL (33.0-37.0); MEAN PLATELET VOLUME 10.1 fl (7.2-11.7); MONO # 0.7 K/uL (0.0-0.8); MONO % 7.4 % (0.0-10.0); NEUT # 6.5 K/uL (1.8-7.0); NEUT % 72.5 % (50.0-75.0); NRBC % 0.4 % (0.0-0.0); RBC 5.34 Mil/uL (4.40-5.90); RED CELL DISTRIBUTION WIDTH 16.1 % (11.5-14.5)
[2018-07-06] MEDS ORDERED: Iodixanol 320 MG/ML 100 ML BOTTLE IV ONE (08:05)
[2018-07-06] MEDS ORDERED: Sodium Chloride 0.9% 50 ML IV ONE (08:06)
[2018-07-06 08:20] LABS: ALB/GLOB RATIO 1.3 (1.0-2.1); ALT/SGPT 52 U/L (21-72); AST/SGOT 31 U/L (17-59); BLOOD UREA NITROGEN 22 mg/dl (9-20); CALCIUM 9.3 mg/dL (8.4-10.2); GFR NON-AFRICAN AMERICAN > 60; HDL CHOLESTEROL 46 MG/DL (30-70)
--- NOTE | 2018-07-06 08:28 | ED PDOC ---
HPI:STROKE - Time Time: 07:30 - Historian Historian: Patient - Chief Complaint Chief Complaint: Weakness, Numbness - Onset Date: 07/06/18 Time: 05:00 Onset: This morning - Notes: Notes:: 52 year old male with pmHx of HTN, arrives to ED for sudden onset of left-sided facial, arm, and leg weakness that began at 0500 this morning. He denies any chest pain or shortness of breath. Otherwise, he does not offer further medical complaints. Code stroke initiated. PCP: Dr. Aide Shields NIHSS Stroke Scale - Date/Time Evaluation Performed Date Performed: 07/06/18 When Was NIHSS Performed: Baseline - How Severe is the Stroke Level of Consciousness: 0=Alert LOC to Questions: 0=Both comments correct LOC to commands: 0=Obeys both correctly Best Gaze: 0=Normal Visual: 0=No visual loss Facial: 1=Minor asymmetry Motor Arm - Left: 1=Drift noted before 10 sec Motor Arm - Right: 0=No drift Motor Leg - Left: 1=Drift before 5 sec Motor Leg - Right: 0=No drift Limb Ataxia: 1=Present Upper or Lower Sensory: 0=Normal Best Language: 0=No aphasia Dysarthia: 0=Normal articulation Extinction & Inattention (Neglect): 0=Normal, no object Score: 4 rTPA Inclusion/Exclusion - Refusal of Treatment Patient Refused Treatment: No - Inclusion Criteria for Altepase Patient is 18 years or Older: Yes The Clinical Diagnosis of Ischemic Stroke That is Causing a Potentially Disabling Neurological Deficit: Yes Time of Onset is Well Established to be Less Than 270 Minute Before Treatment Would Begin: No Risk/Benefit Discussed With Patient/Family Member Present: No - Exclusion Criteria for Altepase Uncontrolled Hypertension at Time of Treatment (Systolic BP above 185 or Diastolic BP above 110 mmHg): No Active Internal Bleeding: No Known Bleeding Diathesis Including but Not Limited to: Platelets Below 100,000/mm,PTT Above 40 sec After Heparin Use, Current Use of Oral Anitcoagulant With INR Greater Than 1.7 or PT Greater Than 15 secs: No Evidence of an Intracranial Hemorrhage: No Evidence of Major Acute Infarct With Signs Greater Than 1/3 MCA Territory: No Suspicion of Subarachnoid Hemorrhage on Pretreatment Evaluation Even if CT Head Negative For Hemorrhage: No - Warning to TPA With Conditions Condition: Care Team Unable to Determine Eligibilty (Case d/w Dr. Cartagena at 8am - patient woke up with symptoms - unable to determine actual time of symptom onset) Past Medical History Reviewed: Historical Data, Nursing Documentation, Vital Signs Vital Signs: Last Vital Signs Temp 97.5 F L 07/06/18 07:45 Pulse 81 07/06/18 07:45 Resp 19 07/06/18 07:45 BP 159/100 H 07/06/18 07:45 Pulse Ox 98 07/06/18 07:45 - Medical History PMH: Atrial Fibrillation, Cardia Arrhythmia (ATRIAL FIB CARDIOMYPATHY ), CHF, HTN Denies: Chronic Kidney Disease - Family History Family History: States: Unknown Family Hx - Immunization History Hx Tetanus Toxoid Vaccination: No Hx Influenza Vaccination: No Hx Pneumococcal Vaccination: No - Home Medications Home Medications: Ambulatory Orders Medication Instructions Recorded Apixaban [Eliquis] 5 mg PO BID #60 tablet 03/18/18 Aspirin [Ecotrin] 81 mg PO DAILY #30 tabec 03/18/18 Furosemide [Lasix] 40 mg PO DAILY #30 tablet 04/18/18 Losartan [Cozaar] 100 mg PO DAILY #30 tab 04/18/18 Potassium Chloride [K-Dur 20 mEq 8 meq PO DAILY 07/06/18 ER Tab] diltiaZEM [Cardizem] 30 mg PO TID 07/06/18 - Allergies Allergies/Adverse Reactions: Allergies Allergy/AdvReac Type Severity Reaction Status Date / Time No Known Allergies Allergy Verified 04/26/18 10:40 Review of Systems ROS Statement: Except As Marked, All Systems Reviewed And Found Negative Cardiovascular: Negative for: Chest Pain Respiratory: Negative for: Shortness of Breath Neurological: Positive for: Weakness (left-sided upper/lower extremities), Numbness (left-sided upper/lower extremities), Other (left-sided facial weakness) Physical Exam - Reviewed Nursing Documentation Reviewed: Yes Vital Signs Reviewed: Yes - Physical Exam Appears: Positive for: No Acute Distress Head Exam: Positive for: ATRAUMATIC, NORMAL INSPECTION, NORMOCEPHALIC Skin: Positive for: Normal Color Eye Exam: Positive for: Normal appearance, EOMI, PERRL ENT: Positive for: Normal ENT Inspection Neck: Positive for: Normal, Painless ROM, Supple Cardiovascular/Chest: Positive for: Regular Rate, Rhythm Respiratory: Positive for: Normal Breath Sounds. Negative for: Respiratory Distress Extremity: Positive for: Normal ROM (right-sided upper/lower with 5/5 strength) Neurologic/Psych: Positive for: Alert, Oriented (x3), Motor/Sensory Deficits (4/5 left-sided upper/lower extremity strength), Facial Droop (mildly on left side). Negative for: Aphasia - Laboratory Results Result Diagrams: 07/06/18 07:40 07/06/18 07:40 - ECG O2 Sat by Pulse Oximetry: 98 (RA) Pulse Ox Interpretation: Normal - Radiology X-Ray: Read By Radiologist - Progress Condition: Re-examined, Unchanged - Critical Care Total Time (In Min): 30 Medical Decision Making Medical Decision Making: Initial Impression: Initial Plan: * Labs * CT head * EKG * Glucose * CXR * IV fluids Time: 749 --EKG: Afib at 84 BPM. Time: 799 --CT head: (-) stroke as per radiologist. Discussed case with neurologist, Dr. Cartagena. Recommends CTA head and neck. Time: 911 --Spoke with Dr. Knight who would like patient to be admitted to Dr. Gilliland. Scribe Attestation: Documented by Niyah Quach, acting as a scribe for Colleen Alcantara MD. Provider Scribe Attestation: All medical record entries made by the Scribe were at my direction and persona lly dictated by me. I have reviewed the chart and agree that the record accurately reflects my personal performance of the history, physical exam, medical decision making, and the department course for this patient. I have also personally directed, reviewed, and agree with the discharge instructions and disposition. patient to be admitted. labs noted. troponin elevated. will notify Dr. Knight Disposition - Clinical Impression Clinical Impression: CVA (cerebral vascular accident), Atrial fibrillation Doctor Will See Patient In The: Hospital - Disposition Disposition: Transfer of Care Disposition Time: 09:00 Condition: FAIR Forms: [facility] (Ukrainian) - Pt Status Changed To: Hospital Disposition Of: Inpatient - Admit Certification Admit to Inpatient:: After my assessment, the patient will require hospitalization for at least two midnights. This is because of the severity of symptoms shown, intensity of services needed, and/or the medical risk in this patient being treated as an outpatient. - POA Present On Arrival: None
[2018-07-06 08:29] LABS: PROTHROMBIN TIME 11.7 Seconds (9.8-13.1)
[2018-07-06 08:30] LABS: LDL CHOLESTEROL 58 mg/dL (0-129)
[2018-07-06 08:31] LABS: PARTIAL THROMBOPLASTIN TIME 31.8 Seconds (25.6-37.1)
[2018-07-06] MEDS: Sodium Chloride 0.9% 1,000 ML IV SCH (08:37)
--- NOTE | 2018-07-06 09:21 | CT ---
Date of service: 07/06/2018 PROCEDURE: CT Angiography of the neck -brain with contrast HISTORY: Left sided numbness and weakness COMPARISON: None. TECHNIQUE: Contiguous axial images of the neck and brain were obtained from the level of the skull vertex to the superior mediastinum in the arteriographic phase of enhancement. Coronal and sagittal reformats or also generated. IV contrast dose: 100 cc Visipaque Radiation dose: Total exam DLP = 529.9 mGy-cm. This CT exam was performed using one or more of the following dose reduction techniques: Automated exposure control, adjustment of the mA and/or kV according to patient size, and/or use of iterative reconstruction technique. FINDINGS: The aortic arch is widely patent. No significant atherosclerotic plaque seen along the aortic arch with origins of the great vessels. The common carotid artery the carotid bifurcations patent. The distal internal carotid arteries including the petrous cavernous and supraclinoid segments are patent however there are partially calcified atherosclerotic plaque changes are seen both carotid siphons. Both vertebral arteries are patent throughout. The major branches of the [id number] and distal branches are patent and symmetric. No evidence of large aneurysm nor vascular malformation OTHER FINDINGS: IMPRESSION: There are partially calcified atherosclerotic plaque changes seen at both carotid siphons.. No evidence of intracerebral occlusion
--- NOTE | 2018-07-06 09:39 | CT ---
Date of service: 07/06/2018 PROCEDURE: CT HEAD WITHOUT CONTRAST. HISTORY: code stroke COMPARISON: None available. TECHNIQUE: Axial computed tomography images were obtained through the head/brain without intravenous contrast. Radiation dose: Total exam DLP = 939.1 mGy-cm. This CT exam was performed using one or more of the following dose reduction techniques: Automated exposure control, adjustment of the mA and/or kV according to patient size, and/or use of iterative reconstruction technique. FINDINGS: HEMORRHAGE: No acute parenchymal, subarachnoid nor extra-axial hemorrhage. BRAIN: Moderate to significant confluent chronic white matter ischemic changes seen extending peripherally into the deep and subcortical white matter both cerebral hemispheres.. Chronic bilateral basal nuclei lacunar type infarcts also present. Note possibility of a small infarct cannot be excluded on this study. Moderate generalized volume loss. Mild vascular calcifications both carotid siphons and vertebral arteries. VENTRICLES: No obstructive hydrocephalus. CALVARIUM: Calvarium intact PARANASAL SINUSES: Unremarkable as visualized. No significant inflammatory changes. MASTOID AIR CELLS: Unremarkable as visualized. No inflammatory changes. OTHER FINDINGS: None. IMPRESSION: Moderate to significant confluent chronic white matter ischemic changes seen extending peripherally into the deep and subcortical white matter both cerebral hemispheres.. Chronic bilateral basal nuclei lacunar type infarcts also present Moderate generalized volume loss.
[2018-07-06] MEDS: Potassium Chloride 8 MEQ TER PO SCH (10:32)
--- NOTE | 2018-07-06 14:00 | CP.PCM.CON ---
History of Present Illness - History of Present Illness History of Present Illness: 52 yr old male who woke up with acute left arm and leg weakness that was not present when he went to sleep. He now says his left arm and leg are asleep. No prior spells, and patient is not a TPA candidate due to unknown time of ons et. ROS: no headache, no nausea, no vomiting. PMH/pSH: FH/SH All: NIHSS: 6 AAOX3. PERRL. CN 2-12 normal. speech fluent, can name and repeat. 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 Decreased ft, pin in left arm and left leg. +2 dtr ul and ll bl. Gait is hemiplegic. Past Patient History - Past Medical History & Family History Past Medical History?: Yes - Past Social History Smoking Status: Never Smoked - CARDIAC Hx Cardiac Disorders: Yes - PULMONARY Hx Respiratory Disorders: No - NEUROLOGICAL Hx Neurological Disorder: No - HEENT Hx HEENT Problems: No - RENAL Hx Chronic Kidney Disease: No - ENDOCRINE/METABOLIC Hx Endocrine Disorders: No - HEMATOLOGICAL/ONCOLOGICAL Hx Blood Disorders: No - INTEGUMENTARY Hx Dermatological Problems: No - MUSCULOSKELETAL/RHEUMATOLOGICAL Hx Falls: Yes - GASTROINTESTINAL Hx Gastrointestinal Disorders: No - GENITOURINARY/GYNECOLOGICAL Hx Genitourinary Disorders: No - PSYCHIATRIC Hx Psychophysiologic Disorder: No Hx Substance Use: No - SURGICAL HISTORY Hx Surgeries: No - ANESTHESIA Hx Anesthesia: No Hx Anesthesia Reactions: No Meds Allergies/Adverse Reactions: Allergies Allergy/AdvReac Type Severity Reaction Status Date / Time No Known Allergies Allergy Verified 04/26/18 10:40 - Medications Medications: Current Medications Apixaban (Eliquis) 5 mg PO BID [facility]; Protocol Last Admin: 07/06/18 10:32 Dose: 5 mg Aspirin (Ecotrin) 81 mg PO DAILY@0900 [facility] Furosemide (Lasix) 40 mg PO DAILY [facility] Last Admin: 07/06/18 10:32 Dose: 40 mg Sodium Chloride (Sodium Chloride 0.9%) 1,000 mls @ 100 mls/hr IV .Q10H [facility] Last Admin: 07/06/18 08:37 Dose: 100 mls/hr Diltiazem HCl 125 mg/ Sodium (Chloride) 125 mls @ 5 mls/hr IV .Q24H [facility]; Protocol Stop: 07/07/18 12:56 Losartan Potassium (Cozaar) 100 mg PO DAILY [facility] Last Admin: 07/06/18 10:31 Dose: 100 mg Potassium Chloride (Klor-Con 8) 8 meq PO DAILY [facility] Last Admin: 07/06/18 10:32 Dose: 8 meq Results - Vital Signs Recent Vital Signs: Last Vital Signs Temp 97.5 F L 07/06/18 12:03 Pulse 67 07/06/18 12:03 Resp 18 07/06/18 12:03 BP 153/85 H 07/06/18 12:03 Pulse Ox 95 07/06/18 12:03 - Labs Result Diagrams: 07/06/18 07:40 07/06/18 07:40 Labs: Laboratory Results - last 24 hr 07/06/18 07/06/18 07/06/18 07:25 07:40 07:40 WBC 9.0 RBC 5.34 Hgb 15.7 Hct 47.1 MCV 88.1 MCH 29.4 MCHC 33.4 RDW 16.1 H Plt Count 128 L MPV 10.1 Neut % (Auto) 72.5 Lymph % (Auto) 17.2 L Johnson % (Auto) 7.4 Eos % (Auto) 2.2 Baso % (Auto) 0.7 Neut # (Auto) 6.5 Lymph # (Auto) 1.5 Johnson # (Auto) 0.7 Eos # (Auto) 0.2 Baso # (Auto) 0.1 PT INR APTT Sodium 140 Potassium 4.0 Chloride 109 H Carbon Dioxide 23 Anion Gap 12 BUN 22 H Creatinine 1.2 Est GFR ( Amer) > 60 Est GFR (Non-Af Amer) > 60 POC Glucose (mg/dL) 105 Random Glucose 97 Calcium 9.3 Total Bilirubin 0.5 AST 31 ALT 52 Alkaline Phosphatase 70 Troponin I 0.1220 H* Total Protein 7.2 Albumin 4.0 Globulin 3.2 Albumin/Globulin Ratio 1.3 Triglycerides 112 Cholesterol 113 LDL Cholesterol Direct 58 HDL Cholesterol 46 Vitamin B12 TSH 3rd Generation Blood Type Antibody Screen BBK History Checked 07/06/18 07/06/18 07/06/18 07:40 07:40 10:18 WBC RBC Hgb Hct MCV MCH MCHC RDW Plt Count MPV Neut % (Auto) Lymph % (Auto) Johnson % (Auto) Eos % (Auto) Baso % (Auto) Neut # (Auto) Lymph # (Auto) Johnson # (Auto) Eos # (Auto) Baso # (Auto) PT 11.7 INR 1.0 APTT 31.8 Sodium Potassium Chloride Carbon Dioxide Anion Gap BUN Creatinine Est GFR ( Amer) Est GFR (Non-Af Amer) POC Glucose (mg/dL) Random Glucose Calcium Total Bilirubin AST ALT Alkaline Phosphatase Troponin I Total Protein Albumin Globulin Albumin/Globulin Ratio Triglycerides 112 Cholesterol 118 LDL Cholesterol Direct 59 HDL Cholesterol 46 Vitamin B12 432 TSH 3rd Generation 0.77 Blood Type O POSITIVE Antibody Screen Negative BBK History Checked Patient has bt Assessment & Plan - Assessment and Plan (Free Text) Assessment: 52 yr old male with 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 CTA head and neck does not show that he could be candidate for intervention. However, we will start stroke workup. Of note, Dr. Knight has started patient on cardizem drip for new onset afib. Plan: 1. Normal saline with 100 ccs per hour 2. NO bp meds at this time. 3. Keep bp at 180-190/90 4. ECHO 5. MRI Brain without elsa 6. PT ST OT 7. Aspirin 325 mg po daily Thank you Dr. [facility]
--- NOTE | 2018-07-06 15:55 | RAD ---
Date of service: 07/06/2018 HISTORY: Code Stroke COMPARISON: Comparison chest radiograph and CTA chest both dated 04/16/2018. FINDINGS: LUNGS: Poor inspiration with low lung volumes, crowded bronchovascular markings and minor bibasilar atelectasis. Previously noted pulmonary venous congestive changes improved.. PLEURA: No significant pleural effusion identified, no pneumothorax apparent. CARDIOVASCULAR: No aortic atherosclerotic calcification present. Cardiomegaly.. No pulmonary vascular congestion. OSSEOUS STRUCTURES: No significant abnormalities. VISUALIZED UPPER ABDOMEN: Normal. OTHER FINDINGS: None. IMPRESSION: Poor inspiration with low lung volumes, crowded bronchovascular markings and minor bibasilar atelectasis. Previously noted pulmonary venous congestive changes improved..
--- NOTE | 2018-07-06 16:35 | CP.PCM.CON ---
History of Present Illness - History of Present Illness History of Present Illness: Consultation for CHF/Afib / CVA HPI : 52-year-old male with known history of chronic paroxysmal atrial fibrillation nonischemic cardiomyopathy ejection fraction 15-20% who has been followed by Dr. Sears patient underwent evaluation with cardiac catheterization and transesophageal echocardiogram back in April which showed nonobstructive coronary artery disease and severe dilated cardiomyopathy with severe MR and severe TR with EF of 10-15%. Patient subsequently was referred for EP evaluation for possible ICD placement and was initiated on medical therapy for cardiomyopathy initiated on oral anticoagulation with Eliquis he now presents with complains of sudden onset left-sided facial arm and leg weakness that began at 5 in the morning from cardiovascular standpoint he denies having any symptoms code stroke was initiated and patient was evaluated by neurology patient noted to be in atrial fibrillation for which IV Cardizem was initiated subsequently patient heart rate was controlled and switched over to p.o. Cardizem. Review of Systems - Review of Systems Systems not reviewed;Unavailable: Acuity of Condition - Constitutional Constitutional: As Per HPI - EENT Eyes: As Per HPI Ears: As Per HPI Nose/Mouth/Throat: As Per HPI - Cardiovascular Cardiovascular: As Per HPI - Respiratory Respiratory: As Per HPI - Gastrointestinal Gastrointestinal: As Per HPI - Genitourinary Genitourinary: As Per HPI - Reproductive: Male Reproductive:Male: As Per HPI - Musculoskeletal Musculoskeletal: As Per HPI - Integumentary Integumentary: As Per HPI - Neurological Neurological: As Per HPI - Psychiatric Psychiatric: As Per HPI - Endocrine Endocrine: As Per HPI - Hematologic/Lymphatic Hematologic: As Per HPI Past Patient History - Past Medical History & Family History Past Medical History?: Yes - Past Social History Smoking Status: Never Smoked - CARDIAC Hx Cardiac Disorders: Yes - PULMONARY Hx Respiratory Disorders: No - NEUROLOGICAL Hx Neurological Disorder: No - HEENT Hx HEENT Problems: No - RENAL Hx Chronic Kidney Disease: No - ENDOCRINE/METABOLIC Hx Endocrine Disorders: No - HEMATOLOGICAL/ONCOLOGICAL Hx Blood Disorders: No Hx AIDS: No Hx Human Immunodeficiency Virus (HIV): No - INTEGUMENTARY Hx Dermatological Problems: No - MUSCULOSKELETAL/RHEUMATOLOGICAL Hx Falls: Yes - GASTROINTESTINAL Hx Gastrointestinal Disorders: No - GENITOURINARY/GYNECOLOGICAL Hx Genitourinary Disorders: No - PSYCHIATRIC Hx Psychophysiologic Disorder: No Hx Substance Use: No - SURGICAL HISTORY Hx Surgeries: No - ANESTHESIA Hx Anesthesia: No Hx Anesthesia Reactions: No Meds Allergies/Adverse Reactions: Allergies Allergy/AdvReac Type Severity Reaction Status Date / Time No Known Allergies Allergy Verified 04/26/18 10:40 - Medications Medications: Current Medications Apixaban (Eliquis) 5 mg PO BID [facility]; Protocol Last Admin: 07/06/18 10:32 Dose: 5 mg Aspirin (Ecotrin) 81 mg PO DAILY@0900 [facility] Furosemide (Lasix) 40 mg PO DAILY [facility] Last Admin: 07/06/18 10:32 Dose: 40 mg Sodium Chloride (Sodium Chloride 0.9%) 1,000 mls @ 100 mls/hr IV .Q10H [facility] Last Admin: 07/06/18 08:37 Dose: 100 mls/hr Diltiazem HCl 125 mg/ Sodium (Chloride) 125 mls @ 5 mls/hr IV .Q24H [facility]; Protocol Stop: 07/07/18 12:56 Last Admin: 07/06/18 13:46 Dose: 5 mg/hr, 5 mls/hr Losartan Potassium (Cozaar) 100 mg PO DAILY [facility] Last Admin: 07/06/18 10:31 Dose: 100 mg Potassium Chloride (Klor-Con 8) 8 meq PO DAILY [facility] Last Admin: 07/06/18 10:32 Dose: 8 meq Physical Exam - Constitutional Appears: Well - Head Exam Head Exam: ATRAUMATIC, NORMAL INSPECTION, NORMOCEPHALIC - Eye Exam Eye Exam: EOMI, Normal appearance, PERRL Pupil Exam: NORMAL ACCOMODATION, PERRL - ENT Exam ENT Exam: Mucous Membranes Moist, Normal Exam - Neck Exam Neck exam: Positive for: Normal Inspection - Respiratory Exam Respiratory Exam: Clear to Auscultation Bilateral, NORMAL BREATHING PATTERN - Cardiovascular Exam Cardiovascular Exam: REGULAR RHYTHM, RRR, +S1, +S2, Systolic Murmur - GI/Abdominal Exam GI & Abdominal Exam: Normal Bowel Sounds, Soft. absent: Tenderness - Extremities Exam Extremities exam: Positive for: normal inspection - Back Exam Back exam: NORMAL INSPECTION - Neurological Exam Neurological exam: Alert, CN II-XII Intact, Motor Sensory Deficit, Normal Gait, Oriented x3, Reflexes Normal Additional comments: LUE 4/5 - Psychiatric Exam Psychiatric exam: Normal Affect, Normal Mood - Skin Skin Exam: Dry, Intact, Normal Color, Warm Results - Vital Signs Recent Vital Signs: Last Vital Signs Temp 97.5 F L 07/06/18 12:03 Pulse 52 L 07/06/18 14:26 Resp 18 07/06/18 12:03 BP 153/85 H 07/06/18 12:03 Pulse Ox 95 07/06/18 12:03 - Labs Result Diagrams: 07/06/18 07:40 07/06/18 07:40 Labs: Laboratory Results - last 24 hr 07/06/18 07/06/18 07/06/18 07:25 07:40 07:40 WBC 9.0 RBC 5.34 Hgb 15.7 Hct 47.1 MCV 88.1 MCH 29.4 MCHC 33.4 RDW 16.1 H Plt Count 128 L MPV 10.1 Neut % (Auto) 72.5 Lymph % (Auto) 17.2 L Pettis % (Auto) 7.4 Eos % (Auto) 2.2 Baso % (Auto) 0.7 Neut # (Auto) 6.5 Lymph # (Auto) 1.5 Pettis # (Auto) 0.7 Eos # (Auto) 0.2 Baso # (Auto) 0.1 PT INR APTT Sodium 140 Potassium 4.0 Chloride 109 H Carbon Dioxide 23 Anion Gap 12 BUN 22 H Creatinine 1.2 Est GFR ( Amer) > 60 Est GFR (Non-Af Amer) > 60 POC Glucose (mg/dL) 105 Random Glucose 97 Calcium 9.3 Total Bilirubin 0.5 AST 31 ALT 52 Alkaline Phosphatase 70 Troponin I 0.1220 H* Total Protein 7.2 Albumin 4.0 Globulin 3.2 Albumin/Globulin Ratio 1.3 Triglycerides 112 Cholesterol 113 LDL Cholesterol Direct 58 HDL Cholesterol 46 Vitamin B12 TSH 3rd Generation Blood Type Antibody Screen BBK History Checked 07/06/18 07/06/18 07/06/18 07:40 07:40 10:18 WBC RBC Hgb Hct MCV MCH MCHC RDW Plt Count MPV Neut % (Auto) Lymph % (Auto) Pettis % (Auto) Eos % (Auto) Baso % (Auto) Neut # (Auto) Lymph # (Auto) Pettis # (Auto) Eos # (Auto) Baso # (Auto) PT 11.7 INR 1.0 APTT 31.8 Sodium Potassium Chloride Carbon Dioxide Anion Gap BUN Creatinine Est GFR ( Amer) Est GFR (Non-Af Amer) POC Glucose (mg/dL) Random Glucose Calcium Total Bilirubin AST ALT Alkaline Phosphatase Troponin I Total Protein Albumin Globulin Albumin/Globulin Ratio Triglycerides 112 Cholesterol 118 LDL Cholesterol Direct 59 HDL Cholesterol 46 Vitamin B12 432 TSH 3rd Generation 0.77 Blood Type O POSITIVE Antibody Screen Negative BBK History Checked Patient has bt Assessment & Plan (1) Atrial fibrillation Assessment and Plan: resume BB and eliquis IV cardizem for rate control Status: Acute (2) CVA (cerebral vascular accident) Assessment and Plan: neuro oac Status: Acute (3) CHF exacerbation Assessment and Plan: cont bb , arb Status: Acute (4) Hypertension Status: Chronic (5) Dyspnea Status: Resolved
--- NOTE | 2018-07-06 20:49 | HP ---
CHIEF COMPLAINT: Left-sided numbness. HISTORY OF PRESENT ILLNESS: This is a 52-year-old male, known case of chronic atrial fibrillation and hypertension, who was having left-sided facial, arm and left leg weakness and numbness since 5 o'clock in the morning, so the patient was brought to the emergency room and was admitted for further management. REVIEW OF SYSTEMS: Positive for left-sided numbness, but no weakness. Review of systems of all other organ systems unremarkable, which includes no headache, dizziness, syncope, loss of consciousness, chest pain, shortness of breath, nausea, vomiting, diarrhea, constipation, any new joint or extremity pain. Review of systems of all other organ system is unremarkable. PAST MEDICAL HISTORY: Significant for hypertension and atrial fibrillation. PAST SURGICAL HISTORY: Unremarkable. PERSONAL HISTORY: The patient is currently a nonsmoker and nondrinker. No substance abuse. MEDICATIONS: The patient is on Eliquis, aspirin, Lasix, Cozaar, potassium chloride and Cardizem. ALLERGIES: THE PATIENT IS NOT ALLERGIC TO ANY MEDICATIONS. FAMILY HISTORY: Noncontributory. PHYSICAL EXAMINATION GENERAL: A well-built, well-nourished, overweight 52-year-old male in no acute distress. VITAL SIGNS: Temperature 97.5, pulse 83, respirations 19, blood pressure 154/84, saturation 98%. Weight is 211 with BMI of 33. HEENT: Pupils are reacting to light. No JVD. No thyromegaly. No lymphadenopathy. No nystagmus. Normocephalic, atraumatic skull. HEART: S1 and S2, normal and regular. No significant murmur, gallop or rub is heard. LUNGS: Show good bilateral air exchange. No rales or rhonchi. ABDOMEN: Soft and nontender. No organomegaly. No fluid. Bowel sounds are present and normal. GENITOURINARY: External genitalia appropriate for age. RECTAL: Stool for occult blood is negative. EXTREMITIES: No edema. No calf swelling. No tenderness. No acute ischemia. CENTRAL NERVOUS SYSTEM: The patient is alert, awake and oriented x3. There is no sign of any acute gross focal motor deficit. The patient does complain of numbness on the left side, but there is no sensory deficit as well. DIAGNOSTIC DATA: Available diagnostic data reviewed. CAT scan of the head does not reveal any acute territorial infarct, but does reveal chronic white matter ischemic changes. CTA of the head and neck shows atherosclerotic plaque in both carotid sinus, but there is no acute intracerebellar occlusion. Troponin level is 0.1220. WBC 9, hemoglobin 15.7, hematocrit 47, platelets 128. PT and PTT are unremarkable. Sodium 140, potassium 4, chloride 109, bicarb 23, BUN 22, creatinine 1.2. SMA-12 is unremarkable. EKG shows normal sinus rhythm with intraventricular conduction defect. Chest x-ray is clear. ADMITTING IMPRESSION: Questionable cerebrovascular accident, transient ischemic attack, atrial fibrillation, hypertension, congestive heart failure, probably acute non-ST elevation myocardial infarction with elevated troponin. PLAN: As ordered. Case and plan discussed with the patient. Artem Gilliland MD
--- NOTE | 2018-07-07 00:22 | CARD ---
APPROVED REPORT Date of service: 07/06/2018 EKG Measurement Heart [id number] <Conclusion> Atrial fibrillation Nonspecific intraventricular block T wave abnormality, consider inferior ischemia Abnormal ECG
[2018-07-07 06:03] LABS: HEMOGLOBIN 14.8 g/dL (12.0-18.0); MEAN CELL VOLUME 86.9 fl (80.0-94.0); MEAN CORPUSCULAR HEMOGLOBIN 29.2 pg (27.0-31.0); MEAN CORPUSCULAR HGB CONC 33.6 g/dL (33.0-37.0); RBC 5.07 Mil/uL (4.40-5.90); RED CELL DISTRIBUTION WIDTH 16.7 % (11.5-14.5); WHITE BLOOD COUNT 14.3 K/uL (4.8-10.8)
[2018-07-07 06:30] LABS: ALB/GLOB RATIO 1.1 (1.0-2.1); ALBUMIN 3.3 g/dL (3.5-5.0); ALT/SGPT 44 U/L (21-72); AST/SGOT 25 U/L (17-59); BLOOD UREA NITROGEN 22 mg/dl (9-20); CALCIUM 8.8 mg/dL (8.4-10.2); GFR NON-AFRICAN AMERICAN 58
--- NOTE | 2018-07-07 07:50 | CP.PCM.PN ---
<Sultan Emily - Last Filed: 07/07/18 09:32> Subjective - Date & Time of Evaluation Date of Evaluation: 07/07/18 Time of Evaluation: 07:50 - Subjective Subjective: Patient seen and examined during round this morning. Patient reports his left arm weakness improved but still feels little weak. Denies any new complaints of chest pain, dypsnea, headache or dizziness. Objective - Vital Signs/Intake and Output Vital Signs (last 24 hours): Temp Pulse Resp BP Pulse Ox 97.6 F 66 18 115/69 96 07/07/18 05:51 07/07/18 05:51 07/07/18 05:51 07/07/18 05:51 07/07/18 05:51 - Medications Medications: Current Medications Apixaban (Eliquis) 5 mg PO BID [facility]; Protocol Last Admin: 07/06/18 17:05 Dose: 5 mg Aspirin (Ecotrin) 81 mg PO DAILY@0900 [facility] Furosemide (Lasix) 40 mg PO DAILY [facility] Last Admin: 07/06/18 10:32 Dose: 40 mg Sodium Chloride (Sodium Chloride 0.9%) 1,000 mls @ 100 mls/hr IV .Q10H [facility] Last Admin: 07/06/18 08:37 Dose: 100 mls/hr Diltiazem HCl 125 mg/ Sodium (Chloride) 125 mls @ 5 mls/hr IV .Q24H [facility]; Protocol Stop: 07/07/18 12:56 Last Admin: 07/06/18 13:46 Dose: 5 mg/hr, 5 mls/hr Losartan Potassium (Cozaar) 100 mg PO DAILY [facility] Last Admin: 07/06/18 10:31 Dose: 100 mg Potassium Chloride (Klor-Con 8) 8 meq PO DAILY [facility] Last Admin: 07/06/18 10:32 Dose: 8 meq - Labs Labs: 07/07/18 04:15 07/07/18 04:15 PT 11.7 Seconds (9.8-13.1) 07/06/18 07:40 INR 1.0 07/06/18 07:40 APTT 31.8 Seconds (25.6-37.1) 07/06/18 07:40 - Constitutional Appears: No Acute Distress - Head Exam Head Exam: NORMAL INSPECTION - Eye Exam Eye Exam: Normal appearance - ENT Exam ENT Exam: Mucous Membranes Moist - Respiratory Exam Respiratory Exam: Clear to Ausculation Bilateral, NORMAL BREATHING PATTERN. absent: Rhonchi, Wheezes - Cardiovascular Exam Cardiovascular Exam: Irregular Rhythm, +S1, +S2 - GI/Abdominal Exam GI & Abdominal Exam: Normal Bowel Sounds. absent: Tenderness - Neurological Exam Neurological Exam: Alert, Awake, Motor Sensory Deficit, Oriented x3 Neuro motor strength exam: Left Upper Extremity: 4 Additional comments: + left pronator drift - Psychiatric Exam Psychiatric exam: Normal Affect, Normal Mood - Skin Skin Exam: Normal Color, Warm Assessment and Plan - Assessment and Plan (Free Text) Assessment: 52 yo male with PMHx of chronic paroxysmal atrial fibrillation and non-ischemic cardiomyopathy admitted for left sided weakness and to evaluate for CVA Plan: Neurology consult, Dr. Cartagena, consult appreciated -f/u brain MRI -Cardiology consult, Dr. Knight, consult appreciated -Troponin x 1 was 0.122 yesterday, Repeat troponin x 3 -f/u AM labs -PT/OT -Rest of the plan as ordered. Patient seen, examined and plan d/w Dr. Talat Diaz, [id number] <Artem Gilliland - Last Filed: 07/09/18 13:27> Objective - Vital Signs/Intake and Output Vital Signs (last 24 hours): Temp Pulse Resp BP Pulse Ox 98 F 91 H 18 134/96 H 98 07/09/18 12:14 07/09/18 12:14 07/09/18 12:14 07/09/18 12:14 07/09/18 12:14 - Medications Medications: Current Medications Apixaban (Eliquis) 5 mg PO BID [facility]; Protocol Last Admin: 07/09/18 09:57 Dose: 5 mg Aspirin (Ecotrin) 81 mg PO DAILY@0900 [facility] Last Admin: 07/09/18 09:57 Dose: 81 mg Atorvastatin Calcium (Lipitor) 40 mg PO DAILY [facility] Last Admin: 07/09/18 09:59 Dose: 40 mg Furosemide (Lasix) 40 mg PO DAILY [facility] Last Admin: 07/09/18 09:58 Dose: 40 mg Sodium Chloride (Sodium Chloride 0.9%) 1,000 mls @ 100 mls/hr IV .Q10H [facility] Last Admin: 07/08/18 11:39 Dose: Not Given Losartan Potassium (Cozaar) 100 mg PO DAILY [facility] Last Admin: 07/09/18 10:07 Dose: 100 mg Metoprolol Tartrate (Lopressor) 25 mg PO Q12 [facility] Potassium Chloride (Klor-Con 8) 8 meq PO DAILY [facility] Last Admin: 07/09/18 09:59 Dose: 8 meq - Labs Labs: 07/09/18 04:30 07/09/18 04:30 PT 11.7 Seconds (9.8-13.1) 07/06/18 07:40 INR 1.0 07/06/18 07:40 APTT 31.8 Seconds (25.6-37.1) 07/06/18 07:40 Assessment and Plan - Assessment and Plan (Free Text) Assessment: Patient was personally seen and examined by me in rounds with residents. Available labs and diagnostic data reviewed. Case, Patient's condition and management plan discussed with residents in rounds. Agree with resident's progress note. Plan: As ordered.
[2018-07-07] MEDS: Potassium Chloride 8 MEQ TER PO SCH (09:28)
--- NOTE | 2018-07-07 10:46 | CP.PCM.PN ---
Subjective - Date & Time of Evaluation Date of Evaluation: 07/07/18 Time of Evaluation: 10:33 - Subjective Subjective: Neurology Follow-Up Note: Mr. Noguera was evaluated this morning at bedside. He is still complaining to weakness of the left arm and left leg, however, he states that the weakness is improving and has more ROM compared to yesterday. Denies h/a, dizziness, visual changes, chest pain, palpitations, sob, cough, n/v/d. Objective - Vital Signs/Intake and Output Vital Signs (last 24 hours): Temp Pulse Resp BP Pulse Ox 98.4 F 82 18 122/81 96 07/07/18 08:03 07/07/18 08:03 07/07/18 08:03 07/07/18 09:28 07/07/18 08:03 - Medications Medications: Current Medications Apixaban (Eliquis) 5 mg PO BID [facility]; Protocol Last Admin: 07/07/18 09:27 Dose: 5 mg Aspirin (Ecotrin) 81 mg PO DAILY@0900 [facility] Last Admin: 07/07/18 09:28 Dose: 81 mg Atorvastatin Calcium (Lipitor) 40 mg PO DAILY [facility] Furosemide (Lasix) 40 mg PO DAILY [facility] Last Admin: 07/07/18 09:28 Dose: 40 mg Sodium Chloride (Sodium Chloride 0.9%) 1,000 mls @ 100 mls/hr IV .Q10H [facility] Last Admin: 07/06/18 08:37 Dose: 100 mls/hr Diltiazem HCl 125 mg/ Sodium (Chloride) 125 mls @ 5 mls/hr IV .Q24H [facility]; Protocol Stop: 07/07/18 12:56 Last Admin: 07/06/18 13:46 Dose: 5 mg/hr, 5 mls/hr Losartan Potassium (Cozaar) 100 mg PO DAILY [facility] Last Admin: 07/07/18 09:27 Dose: 100 mg Potassium Chloride (Klor-Con 8) 8 meq PO DAILY [facility] Last Admin: 07/07/18 09:28 Dose: 8 meq - Labs Labs: 07/07/18 04:15 07/07/18 04:15 PT 11.7 Seconds (9.8-13.1) 07/06/18 07:40 INR 1.0 07/06/18 07:40 APTT 31.8 Seconds (25.6-37.1) 07/06/18 07:40 - Constitutional Appears: Well, Non-toxic, No Acute Distress - Head Exam Head Exam: ATRAUMATIC, NORMAL INSPECTION, NORMOCEPHALIC - Eye Exam Eye Exam: EOMI, Normal appearance Pupil Exam: NORMAL ACCOMODATION, PERRL - ENT Exam ENT Exam: Mucous Membranes Moist - Neck Exam Neck Exam: Full ROM, Normal Inspection - Respiratory Exam Respiratory Exam: NORMAL BREATHING PATTERN - Extremities Exam Extremities Exam: absent: Calf Tenderness, Full ROM, Pedal Edema Additional comments: FROM to RUE and RLE Decreased ROM to LUE and LLE - Back Exam Back Exam: Full ROM - Neurological Exam Neurological Exam: Alert, Awake, CN II-XII Intact, Oriented x3, Reflexes Normal Neuro motor strength exam: Left Upper Extremity: 4 (roller leveler 3/5), Right Upper Extremity: 5, Left Lower Extremity: 4 (dorsiflexion 4/5), Right Lower Extremity: 5 Additional comments: Awake, alert; follows commands Speech clear, fluid No facial asymmetry LUE and LLE decreased ROM; + slight left pronator drift noted Sensation unequal; right side intact, left arm and left left no sensation to touch per pt; + facial sensation intact and equal b/l Fine motor intact Reflexes normal. Gait not assessed; PT notes reviewed. - Psychiatric Exam Psychiatric exam: Normal Affect, Normal Mood - Skin Skin Exam: Normal Color Assessment and Plan - Assessment and Plan (Free Text) Assessment: Imaging reviewed: -CT Head (07/06/18): Moderate to significant confluent chronic white matter ischemic changes seen extending peripherally into the deep and subcortical white matter both cerebral hemispheres.. Chronic bilateral basal nuclei lacunar type infarcts also present. Moderate generalized volume loss. -CTA head and Neck (07/06/18): There are partially calcified atherosclerotic plaque changes seen at both carotid siphons.. No evidence of intracerebral occlusion. Mr. Noguera is a 52 y/o M admitted for weakness to the left arm and left leg, likely 2/[address] shows no acute findings, however, pt has chronic infarcts. -MRI brain ordered--will f/u with results. -ECHO ordered--will f/u with results. -Continue BP control and afib management. -Continue PT/OT per stroke protocol. -Continue ASA and statin. -Notify neuro team of any acute changes to pt's condition. Case discussed with Dr. Cartagena.
[2018-07-07] MEDS ORDERED: Gadodiamide 287 MG/ML VIAL (15ML) IV ONE (19:42)
[2018-07-08 06:37] LABS: ALB/GLOB RATIO 1.1 (1.0-2.1); ALBUMIN 3.4 g/dL (3.5-5.0); ALT/SGPT 51 U/L (21-72); AST/SGOT 31 U/L (17-59); BLOOD UREA NITROGEN 22 mg/dl (9-20); CALCIUM 8.9 mg/dL (8.4-10.2); GFR NON-AFRICAN AMERICAN > 60; HEMOGLOBIN 14.6 g/dL (12.0-18.0); MEAN CELL VOLUME 87.5 fl (80.0-94.0); MEAN CORPUSCULAR HEMOGLOBIN 29.4 pg (27.0-31.0); MEAN CORPUSCULAR HGB CONC 33.6 g/dL (33.0-37.0); RBC 4.95 Mil/uL (4.40-5.90); RED CELL DISTRIBUTION WIDTH 16.5 % (11.5-14.5); WHITE BLOOD COUNT 8.1 K/uL (4.8-10.8)
--- NOTE | 2018-07-08 08:21 | CARD ---
APPROVED REPORT Date of service: 07/07/2018 EXAM: Two-dimensional and M-mode echocardiogram with Doppler and color Doppler. Other Information Quality : GoodRhythm : Atrial Fibrillation INDICATION CVA/TIA Atrial Fibrillation Congestive Heart Failure 2D DIMENSIONS IVSd1.92 (0.7-1.1cm)LVDd4.60 (3.9-5.9cm) LVOT Diameter2.43 (1.8-2.4cm)PWd1.45 (0.7-1.1cm) IVSs1.82 (0.8-1.2cm)LVDs4.32 (2.5-4.0cm) FS (%) 6.1 %PWs1.86 (0.8-1.2cm) M-Mode DIMENSIONS Left Atrium (MM)4.50 (2.5-4.0cm)IVSd2.21 (0.7-1.1cm) Aortic Root3.76 (2.2-3.7cm)LVDd4.74 (4.0-5.6cm) Aortic Cusp Exc.1.94 (1.5-2.0cm)PWd1.76 (0.7-1.1cm) IVSs2.29 cmFS (%) 18 % LVDs3.88 (2.0-3.8cm)PWs2.32 cm Aortic Valve AoV Peak Lguppfue847.4cm/sAoV VTI39.9cmAO Peak GR.28mmHg LVOT Peak Tjgatjsc04.2cm/sLVOT VTI16.70cmAO Mean GR.17mmHg ISHA (VMAX)0.22yl5VUK (VTI)0.73nh0CU P 1/2 [id number] Mitral Valve E/A ratio0.0 TDI E/Lateral E'0.0E/Medial E'0.0 LEFT VENTRICLE The left ventricle is normal size. There is moderate concentric left ventricular hypertrophy. The left ventricular systolic function is low normal. The estimated ejection fraction is 50-55% No regional wall motion abnormalities noted.. The left ventricular diastolic function cannot be assessed due to underlying atrial fibrillation. No left ventricle thrombus noted on this study. There is no ventricular septal defect visualized. There is no left ventricular aneurysm. There is no mass noted in the left ventricle. RIGHT VENTRICLE The right ventricle is normal size. There is normal right ventricular wall thickness. The right ventricular systolic function is normal. ATRIA The left atrium is mildly dilated. The right atrium size is normal. The interatrial septum is intact with no evidence for an atrial septal defect. AORTIC VALVE The aortic valve is normal in structure. Atleast moderate aortic regurgitation is present. There is no aortic valvular stenosis. Increased flow across across aortic valve likely from regurgitation. There is no aortic valvular vegetation. MITRAL VALVE The mitral valve is normal in structure. There is no evidence of mitral valve prolapse. There is no mitral valve stenosis. There is mild mitral valve regurgitation noted. TRICUSPID VALVE The tricuspid valve is normal in structure. There is trace tricuspid valve regurgitation noted. There is no tricuspid valve prolapse or vegetation. There is no tricuspid valve stenosis. PULMONIC VALVE The pulmonary valve is normal in structure. There is trace pulmonic valvular regurgitation. There is no pulmonic valvular stenosis. GREAT VESSELS The aortic root is normal in size. The ascending aorta is normal in size. The pulmonary artery is normal. The IVC is normal in size and collapses >50% with inspiration. PERICARDIAL EFFUSION There is no pericardial effusion. There is no pleural effusion. <Conclusion> There is moderate concentric left ventricular hypertrophy. The left ventricular systolic function is low normal. The estimated ejection fraction is 50-55% The left ventricular diastolic function cannot be assessed due to underlying atrial fibrillation. The left atrium is mildly dilated. Atleast moderate aortic regurgitation is present. There is mild mitral valve regurgitation noted. There is trace tricuspid valve regurgitation noted.
--- NOTE | 2018-07-08 11:08 | CP.PCM.PN ---
Subjective - Date & Time of Evaluation Date of Evaluation: 07/08/18 Time of Evaluation: 11:07 - Subjective Subjective: Neurology Follow-Up Note: Mr. Noguera was evaluated this morning sitting in a chair at bedside. He is still complaining to slight weakness of the left arm and left leg. Pt states that the weakness continues to improve. He also admits that the sensation to his left arm and left leg are returning. He is currently pending acute rehab, however, due to an episode of rapid afib this morning, he will be monitored for another day before d/c to rehab. Mr. Noguera denies h/a, dizziness, visual changes, chest pain, palpitations, sob, cough, n/v/d. Objective - Vital Signs/Intake and Output Vital Signs (last 24 hours): Temp Pulse Resp BP Pulse Ox 97.9 F 83 18 127/86 97 07/08/18 08:07 07/08/18 10:44 07/08/18 08:07 07/08/18 08:07 07/08/18 10:44 - Medications Medications: Current Medications Apixaban (Eliquis) 5 mg PO BID [facility]; Protocol Last Admin: 07/07/18 16:57 Dose: 5 mg Aspirin (Ecotrin) 81 mg PO DAILY@0900 [facility] Last Admin: 07/07/18 09:28 Dose: 81 mg Atorvastatin Calcium (Lipitor) 40 mg PO DAILY [facility] Last Admin: 07/07/18 10:25 Dose: 40 mg Furosemide (Lasix) 40 mg PO DAILY [facility] Last Admin: 07/07/18 09:28 Dose: 40 mg Sodium Chloride (Sodium Chloride 0.9%) 1,000 mls @ 100 mls/hr IV .Q10H [facility] Last Admin: 07/06/18 08:37 Dose: 100 mls/hr Losartan Potassium (Cozaar) 50 mg PO DAILY [facility] Metoprolol Tartrate (Lopressor) 50 mg PO Q12 [facility] Potassium Chloride (Klor-Con 8) 8 meq PO DAILY [facility] Last Admin: 07/07/18 09:28 Dose: 8 meq - Labs Labs: 07/08/18 04:30 07/08/18 04:30 PT 11.7 Seconds (9.8-13.1) 07/06/18 07:40 INR 1.0 07/06/18 07:40 APTT 31.8 Seconds (25.6-37.1) 07/06/18 07:40 - Constitutional Appears: Well, Non-toxic, No Acute Distress - Head Exam Head Exam: ATRAUMATIC, NORMAL INSPECTION, NORMOCEPHALIC - Eye Exam Eye Exam: EOMI, Normal appearance, PERRL Pupil Exam: NORMAL ACCOMODATION, PERRL - ENT Exam ENT Exam: Mucous Membranes Moist - Neck Exam Neck Exam: Full ROM, Normal Inspection - Respiratory Exam Respiratory Exam: NORMAL BREATHING PATTERN - Cardiovascular Exam Cardiovascular Exam: Irregular Rhythm - Extremities Exam Extremities Exam: Normal Inspection. absent: Calf Tenderness, Full ROM, Pedal Edema Additional comments: slight decreased rom to LUE; from to LLE - Back Exam Back Exam: Full ROM - Neurological Exam Neurological Exam: Alert, Awake, CN II-XII Intact, Oriented x3, Reflexes Normal Neuro motor strength exam: Left Upper Extremity: 4 (siderographist 4/5), Right Upper Extremity: 5, Left Lower Extremity: 5, Right Lower Extremity: 5 Additional comments: speech clear and fluid no facial asymmetry strength to LUE 4/5, improved compared to yesterday fine motor intact sensation to LUE and LLE have improved; pt can feel touch to left sided extremities today; right side sensation intact gait not assessed; PT notes reviewd. - Psychiatric Exam Psychiatric exam: Normal Affect, Normal Mood - Skin Skin Exam: Normal Color Assessment and Plan (1) TIA (transient ischemic attack) Assessment & Plan: Imaging reviewed: -MRI Brain (07/07/18): generalized age-appropriate atrophy. Bilateral periventr icular and subcortical white matter chronic ischemic changes. Chronic sinusitis. No evidence of acute intracranial pathology. -CT Head (07/06/18): Moderate to significant confluent chronic white matter ischemic changes seen extending peripherally into the deep and subcortical white matter both cerebral hemispheres.. Chronic bilateral basal nuclei lacunar type infarcts also present. Moderate generalized volume loss. -CTA head and Neck (07/06/18): There are partially calcified atherosclerotic faraz que changes seen at both carotid siphons.. No evidence of intracerebral occlusion. -ECHO: EF 50-55%; no LV thrombus. -Continue BP control and afib management; on Eliquis 5mg PO BID for afib; Losar sheldon and Metoprolol added to medication list. -Continue PT/OT per stroke protocol. -Continue ASA and statin while in the hospital and upon d/c. -Pt is pending acute rehab. -Neurologically stable to d/c to rehab. -Notify neuro team of any acute changes to pt's condition. Case discussed with Dr. Cartagena. Status: Acute
[2018-07-08] MEDS: Potassium Chloride 8 MEQ TER PO SCH (11:37)
[2018-07-08] MEDS: Sodium Chloride 0.9% 1,000 ML IV SCH (11:39)
--- NOTE | 2018-07-08 12:07 | CP.PCM.PN ---
<Sultan Emily - Last Filed: 07/08/18 12:10> Subjective - Date & Time of Evaluation Date of Evaluation: 07/08/18 Time of Evaluation: 07:55 - Subjective Subjective: Patient seen and examined with Dr. Gilliland this morning. Patient reports his left arm weakness still present but it's improving. Denies any new complaints of chest pain, dypsnea, headache or dizziness. No new complaints. Objective - Vital Signs/Intake and Output Vital Signs (last 24 hours): Temp Pulse Resp BP Pulse Ox 97.7 F 79 18 154/94 H 98 07/08/18 12:00 07/08/18 12:00 07/08/18 12:00 07/08/18 12:00 07/08/18 12:00 - Medications Medications: Current Medications Apixaban (Eliquis) 5 mg PO BID [facility]; Protocol Last Admin: 07/08/18 11:36 Dose: 5 mg Aspirin (Ecotrin) 81 mg PO DAILY@0900 [facility] Last Admin: 07/08/18 11:36 Dose: 81 mg Atorvastatin Calcium (Lipitor) 40 mg PO DAILY [facility] Last Admin: 07/08/18 11:38 Dose: 40 mg Furosemide (Lasix) 40 mg PO DAILY [facility] Last Admin: 07/08/18 11:37 Dose: 40 mg Sodium Chloride (Sodium Chloride 0.9%) 1,000 mls @ 100 mls/hr IV .Q10H [facility] Last Admin: 07/08/18 11:39 Dose: Not Given Losartan Potassium (Cozaar) 50 mg PO DAILY [facility] Metoprolol Tartrate (Lopressor) 50 mg PO Q12 [facility] Potassium Chloride (Klor-Con 8) 8 meq PO DAILY [facility] Last Admin: 07/08/18 11:37 Dose: 8 meq - Labs Labs: 07/08/18 04:30 07/08/18 04:30 PT 11.7 Seconds (9.8-13.1) 07/06/18 07:40 INR 1.0 07/06/18 07:40 APTT 31.8 Seconds (25.6-37.1) 07/06/18 07:40 - Constitutional Appears: No Acute Distress - Head Exam Head Exam: NORMAL INSPECTION - Eye Exam Eye Exam: Normal appearance - ENT Exam ENT Exam: Mucous Membranes Moist - Respiratory Exam Respiratory Exam: Clear to Ausculation Bilateral, NORMAL BREATHING PATTERN. absent: Rhonchi, Wheezes - Cardiovascular Exam Cardiovascular Exam: Irregular Rhythm, +S1, +S2 - GI/Abdominal Exam GI & Abdominal Exam: Soft, Normal Bowel Sounds. absent: Tenderness - Extremities Exam Extremities Exam: Normal Inspection. absent: Calf Tenderness - Neurological Exam Neurological Exam: Alert, Awake, Oriented x3 Neuro motor strength exam: Left Upper Extremity: 4 (unchanged from yesterday) Additional comments: +left pronator drift - Psychiatric Exam Psychiatric exam: Normal Affect, Normal Mood - Skin Skin Exam: Normal Color, Warm Assessment and Plan - Assessment and Plan (Free Text) Assessment: 52 yo male with PMHx of chronic paroxysmal atrial fibrillation and non-ischemic cardiomyopathy admitted for left sided weakness and to evaluate for CVA. Anticipate discharge to acute rehab tomorrow. Plan: Neurology consult, Dr. Cartagena, consult appreciated -f/u brain MRI -Cardiology consult, Dr. Knight, consult appreciated -Repeat troponin trended down -PT/OT -f/u AM labs -Rest of the plan as ordered. Patient seen, examined and plan d/w Dr. Talat Diaz, [id number] <Artem Gilliland - Last Filed: 07/09/18 13:24> Objective - Vital Signs/Intake and Output Vital Signs (last 24 hours): Temp Pulse Resp BP Pulse Ox 98 F 91 H 18 134/96 H 98 07/09/18 12:14 07/09/18 12:14 07/09/18 12:14 07/09/18 12:14 07/09/18 12:14 - Medications Medications: Current Medications Apixaban (Eliquis) 5 mg PO BID [facility]; Protocol Last Admin: 07/09/18 09:57 Dose: 5 mg Aspirin (Ecotrin) 81 mg PO DAILY@0900 [facility] Last Admin: 07/09/18 09:57 Dose: 81 mg Atorvastatin Calcium (Lipitor) 40 mg PO DAILY [facility] Last Admin: 07/09/18 09:59 Dose: 40 mg Furosemide (Lasix) 40 mg PO DAILY [facility] Last Admin: 07/09/18 09:58 Dose: 40 mg Sodium Chloride (Sodium Chloride 0.9%) 1,000 mls @ 100 mls/hr IV .Q10H [facility] Last Admin: 07/08/18 11:39 Dose: Not Given Losartan Potassium (Cozaar) 100 mg PO DAILY [facility] Last Admin: 07/09/18 10:07 Dose: 100 mg Metoprolol Tartrate (Lopressor) 25 mg PO Q12 [facility] Potassium Chloride (Klor-Con 8) 8 meq PO DAILY [facility] Last Admin: 07/09/18 09:59 Dose: 8 meq - Labs Labs: 07/09/18 04:30 07/09/18 04:30 PT 11.7 Seconds (9.8-13.1) 07/06/18 07:40 INR 1.0 07/06/18 07:40 APTT 31.8 Seconds (25.6-37.1) 07/06/18 07:40 Assessment and Plan - Assessment and Plan (Free Text) Assessment: Patient was personally seen and examined by me in rounds with residents. Available labs and diagnostic data reviewed. Case, Patient's condition and management plan discussed with residents in rounds. Agree with resident's progress note. Plan: As ordered.
--- NOTE | 2018-07-08 16:32 | MRI ---
Date of service: 07/07/2018 PROCEDURE: MRI BRAIN WITH AND WITHOUT CONTRAST HISTORY: cva COMPARISON: None available. TECHNIQUE: Multiplanar, multisequence MR images of the brain were obtained with and without intravenous contrast enhancement (Omniscan 18 cc). FINDINGS: HEMORRHAGE: No definite acute intracranial hemorrhage appreciable DWI: A punctate infarct is seen at the posterior inferior right hannah. No lobar brain infarction is identified on acute or subacute basis. BRAIN PARENCHYMA: Multiple chronic lacunes are identified including 2 within the central hannah at the same level as well as at the right thalamus. Two small lacunes are chronic at the left thalamus. Trace hemosiderin is seen related to the bilateral thalami minimally potentially related to prior tiny infarcts. Additional chronic infarct is identified at the superior right basal ganglia anteriorly. Limited expansion of the ventricular sulcal and cisternal spaces appreciated compatible diffuse cerebral atrophy. Further, relatively prominent periventricular white matter signal changes are appreciated suggestive of chronic microangiopathy though the pattern is somewhat prominent for the patient's stated age of 52 years. Corpus callosum callosum nevertheless appears normal. This could be a function of hypertension or migraine headaches though other etiologies are possible, particularly the patient is a vasculopath. ENHANCEMENT: No abnormal intracranial enhancement. VENTRICLES: Unremarkable. No hydrocephalus. CRANIUM: Unremarkable. ORBITS: Grossly unremarkable. PARANASAL SINUSES/MASTOIDS: Clear VASCULAR SYSTEM: Skull base flow voids intact. OTHER FINDINGS: A few small cysts are identified under 1 cm size at the right greater than left parotid glands at their superficial segments.. IMPRESSION: 1. Tiny acute infarct inferior right hannah. There are least 2 additional pontine but chronic infarcts as well as additional chronic infarcts as per above. 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 2. No abnormal intracranial enhancement.
--- NOTE | 2018-07-09 00:53 | CARD ---
APPROVED REPORT Date of service: 07/08/2018 EKG Measurement Heart [id number] <Conclusion> Atrial fibrillation Nonspecific intraventricular block Abnormal ECG
[2018-07-09 05:45] LABS: HEMOGLOBIN 14.3 g/dL (12.0-18.0); MEAN CELL VOLUME 89.2 fl (80.0-94.0); MEAN CORPUSCULAR HEMOGLOBIN 29.7 pg (27.0-31.0); MEAN CORPUSCULAR HGB CONC 33.4 g/dL (33.0-37.0); RBC 4.82 Mil/uL (4.40-5.90); RED CELL DISTRIBUTION WIDTH 16.4 % (11.5-14.5); WHITE BLOOD COUNT 10.2 K/uL (4.8-10.8)
[2018-07-09 06:03] LABS: ALB/GLOB RATIO 1.1 (1.0-2.1); ALBUMIN 3.3 g/dL (3.5-5.0); ALT/SGPT 43 U/L (21-72); AST/SGOT 21 U/L (17-59); BLOOD UREA NITROGEN 21 mg/dl (9-20); CALCIUM 8.7 mg/dL (8.4-10.2); GFR NON-AFRICAN AMERICAN > 60
--- NOTE | 2018-07-09 06:19 | CP.PCM.PCO ---
Physician Communication Note - Physician Communication Note Physician Communication Note: Pt had an episode of fernie with pauses appox 02:45
--- NOTE | 2018-07-09 09:21 | CP.PCM.PN ---
<Sultan Emily - Last Filed: 07/09/18 09:18> Subjective - Date & Time of Evaluation Date of Evaluation: 07/09/18 Time of Evaluation: 07:50 - Subjective Subjective: Patient seen and examined with Dr. Gilliland this morning. Patient had an episode of bradycardia with pauses at 2:45 am this morning. Denied any symptoms as per overnight RN at that time. States improved left leg numbness and weakness. Denies any new complaints of chest pain, dypsnea, headache or dizziness. No new complaints. Objective - Vital Signs/Intake and Output Vital Signs (last 24 hours): Temp Pulse Resp BP Pulse Ox 97.8 F 74 18 156/83 H 98 07/09/18 08:21 07/09/18 08:21 07/09/18 08:21 07/09/18 08:21 07/09/18 08:21 - Medications Medications: Current Medications Apixaban (Eliquis) 5 mg PO BID [facility]; Protocol Last Admin: 07/08/18 17:01 Dose: 5 mg Aspirin (Ecotrin) 81 mg PO DAILY@0900 [facility] Last Admin: 07/08/18 11:36 Dose: 81 mg Atorvastatin Calcium (Lipitor) 40 mg PO DAILY [facility] Last Admin: 07/08/18 11:38 Dose: 40 mg Furosemide (Lasix) 40 mg PO DAILY [facility] Last Admin: 07/08/18 11:37 Dose: 40 mg Sodium Chloride (Sodium Chloride 0.9%) 1,000 mls @ 100 mls/hr IV .Q10H [facility] Last Admin: 07/08/18 11:39 Dose: Not Given Losartan Potassium (Cozaar) 100 mg PO DAILY [facility] Metoprolol Tartrate (Lopressor) 25 mg PO Q12 [facility] Potassium Chloride (Klor-Con 8) 8 meq PO DAILY [facility] Last Admin: 07/08/18 11:37 Dose: 8 meq - Labs Labs: 07/09/18 04:30 07/09/18 04:30 PT 11.7 Seconds (9.8-13.1) 07/06/18 07:40 INR 1.0 07/06/18 07:40 APTT 31.8 Seconds (25.6-37.1) 07/06/18 07:40 - Constitutional Appears: No Acute Distress - Head Exam Head Exam: NORMAL INSPECTION - Eye Exam Eye Exam: Normal appearance - ENT Exam ENT Exam: Mucous Membranes Moist - Respiratory Exam Respiratory Exam: Clear to Ausculation Bilateral, NORMAL BREATHING PATTERN. absent: Rhonchi, Wheezes - Cardiovascular Exam Cardiovascular Exam: Irregular Rhythm, +S1, +S2 - GI/Abdominal Exam GI & Abdominal Exam: Soft, Normal Bowel Sounds. absent: Tenderness - Extremities Exam Extremities Exam: Normal Inspection. absent: Calf Tenderness - Neurological Exam Neurological Exam: Alert, Awake, Oriented x3 Neuro motor strength exam: Left Upper Extremity: 4 Additional comments: +left pronator drift - Psychiatric Exam Psychiatric exam: Normal Affect, Normal Mood - Skin Skin Exam: Normal Color, Warm Assessment and Plan - Assessment and Plan (Free Text) Assessment: 52 yo male with PMHx of chronic paroxysmal atrial fibrillation and non-ischemic cardiomyopathy admitted for left sided weakness and to evaluate for CVA. Plan: Neurology consult, Dr. Cartagena, consult appreciated -Brain MRI: IMPRESSION: Tiny acute infarct inferior right hannah. There are least 2 additional pontine but chronic infarcts as well as additional chronic infarcts as per above. 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 No abnormal intracranial enhancement. -Cardiology consult, Dr. Knight, consult appreciated -Repeat troponin trended down -c/w PT/OT -Decrease metoprolol to 25 mg po bid and increase Losartan to 100 mg po daily. -f/u AM labs -Rest of the plan as ordered. Patient seen, examined and plan d/w Dr. Talat Diaz, [id number] <Artem Gilliland - Last Filed: 07/09/18 13:22> Objective - Vital Signs/Intake and Output Vital Signs (last 24 hours): Temp Pulse Resp BP Pulse Ox 98 F 91 H 18 134/96 H 98 07/09/18 12:14 07/09/18 12:14 07/09/18 12:14 07/09/18 12:14 07/09/18 12:14 - Medications Medications: Current Medications Apixaban (Eliquis) 5 mg PO BID [facility]; Protocol Last Admin: 07/09/18 09:57 Dose: 5 mg Aspirin (Ecotrin) 81 mg PO DAILY@0900 [facility] Last Admin: 07/09/18 09:57 Dose: 81 mg Atorvastatin Calcium (Lipitor) 40 mg PO DAILY [facility] Last Admin: 07/09/18 09:59 Dose: 40 mg Furosemide (Lasix) 40 mg PO DAILY [facility] Last Admin: 07/09/18 09:58 Dose: 40 mg Sodium Chloride (Sodium Chloride 0.9%) 1,000 mls @ 100 mls/hr IV .Q10H [facility] Last Admin: 07/08/18 11:39 Dose: Not Given Losartan Potassium (Cozaar) 100 mg PO DAILY [facility] Last Admin: 07/09/18 10:07 Dose: 100 mg Metoprolol Tartrate (Lopressor) 25 mg PO Q12 [facility] Potassium Chloride (Klor-Con 8) 8 meq PO DAILY [facility] Last Admin: 07/09/18 09:59 Dose: 8 meq - Labs Labs: 07/09/18 04:30 07/09/18 04:30 PT 11.7 Seconds (9.8-13.1) 07/06/18 07:40 INR 1.0 07/06/18 07:40 APTT 31.8 Seconds (25.6-37.1) 07/06/18 07:40 Assessment and Plan - Assessment and Plan (Free Text) Assessment: Patient was personally seen and examined by me in rounds with residents. Available labs and diagnostic data reviewed. Case, Patient's condition and management plan discussed with residents in rounds. Agree with resident's progress note. Plan: As ordered.
[2018-07-09] MEDS: Potassium Chloride 8 MEQ TER PO SCH (09:59)
--- NOTE | 2018-07-09 11:05 | CP.PCM.PN ---
Subjective - Date & Time of Evaluation Date of Evaluation: 07/09/18 Time of Evaluation: 11:04 - Subjective Subjective: Neurology Follow-Up Note: Mr. Noguera was evaluated this morning at bedside. He admits that his left arm and left leg weakness and sensation have improved. He offers no complaints today. Overnight events noted. Mr. Noguera denies h/a, dizziness, visual changes, chest pain, palpitations, sob, cough, n/v/d. Objective - Vital Signs/Intake and Output Vital Signs (last 24 hours): Temp Pulse Resp BP Pulse Ox 97.8 F 74 18 156/83 H 98 07/09/18 08:21 07/09/18 10:07 07/09/18 08:21 07/09/18 10:07 07/09/18 08:21 - Medications Medications: Current Medications Apixaban (Eliquis) 5 mg PO BID [facility]; Protocol Last Admin: 07/09/18 09:57 Dose: 5 mg Aspirin (Ecotrin) 81 mg PO DAILY@0900 [facility] Last Admin: 07/09/18 09:57 Dose: 81 mg Atorvastatin Calcium (Lipitor) 40 mg PO DAILY [facility] Last Admin: 07/09/18 09:59 Dose: 40 mg Furosemide (Lasix) 40 mg PO DAILY [facility] Last Admin: 07/09/18 09:58 Dose: 40 mg Sodium Chloride (Sodium Chloride 0.9%) 1,000 mls @ 100 mls/hr IV .Q10H [facility] Last Admin: 07/08/18 11:39 Dose: Not Given Losartan Potassium (Cozaar) 100 mg PO DAILY [facility] Last Admin: 07/09/18 10:07 Dose: 100 mg Metoprolol Tartrate (Lopressor) 25 mg PO Q12 [facility] Potassium Chloride (Klor-Con 8) 8 meq PO DAILY [facility] Last Admin: 07/09/18 09:59 Dose: 8 meq - Labs Labs: 07/09/18 04:30 07/09/18 04:30 PT 11.7 Seconds (9.8-13.1) 07/06/18 07:40 INR 1.0 07/06/18 07:40 APTT 31.8 Seconds (25.6-37.1) 07/06/18 07:40 - Constitutional Appears: Well, Non-toxic, No Acute Distress - Head Exam Head Exam: ATRAUMATIC, NORMAL INSPECTION, NORMOCEPHALIC - Eye Exam Eye Exam: EOMI, Normal appearance, PERRL Pupil Exam: NORMAL ACCOMODATION, PERRL - ENT Exam ENT Exam: Mucous Membranes Moist - Neck Exam Neck Exam: Full ROM, Normal Inspection - Respiratory Exam Respiratory Exam: NORMAL BREATHING PATTERN - Cardiovascular Exam Cardiovascular Exam: Irregular Rhythm - Extremities Exam Extremities Exam: Full ROM, Normal Inspection. absent: Calf Tenderness, Pedal Edema - Back Exam Back Exam: Full ROM - Neurological Exam Neurological Exam: Alert, Awake, CN II-XII Intact, Oriented x3, Reflexes Normal Neuro motor strength exam: Left Upper Extremity: 5 (chinese teacher 5/5), Right Upper Extremity: 5 (chinese teacher 5/5), Left Lower Extremity: 5, Right Lower Extremity: 5 Additional comments: speech clear and fluid no facial asymmetry strength to BUE and BLE equal fine motor intact sensation to LUE and LLE continue to improve; pt can feel touch to left sided extremities today; right side sensation intact gait not assessed; PT notes reviewd. - Psychiatric Exam Psychiatric exam: Normal Affect, Normal Mood - Skin Skin Exam: Normal Color Assessment and Plan (1) CVA (cerebral vascular accident) Assessment & Plan: Imaging reviewed: -MRI Brain (07/07/18): 1. Tiny acute infarct inferior right hannah. There are least 2 additional pontine but chronic infarcts as well as additional chronic infarcts as per above. 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 2. No abnormal intracranial enhancement. this is the official report -MRI Brain (07/07/18): generalized age-appropriate atrophy. Bilateral periventricular and subcortical white matter chronic ischemic changes. Chronic sinusitis. No evidence of acute intracranial pathology.this was a preliminary report -CT Head (07/06/18): Moderate to significant confluent chronic white matter ischemic changes seen extending peripherally into the deep and subcortical white matter both cerebral hemispheres.. Chronic bilateral basal nuclei lacunar type infarcts also present. Moderate generalized volume loss. -CTA head and Neck (07/06/18): There are partially calcified atherosclerotic plaque changes seen at both carotid siphons.. No evidence of intracerebral occlusion. -ECHO: EF 50-55%; no LV thrombus. -Continue BP control and afib management per cardiology; on Eliquis 5mg PO BID for afib. Please note, pt verbalized to me concerns regarding being able to afford Eliquis as outpatient---he is at risk of noncompliance and further strokes if he does not afford the Eliquis. Recommend to provide pt with Eliquis coupons if poss or consider AC that is affordable for him. -Continue PT/OT. -Continue ASA and statin while in the hospital and upon d/c. -Pt is pending acute rehab. -Notify neuro team of any acute changes to pt's condition. Neurologically stable for d/c to rehab. Reconsult prn. Case discussed with Dr. Cartagena. Status: Acute
[2018-07-09] MEDS: Sodium Chloride 0.9% 1,000 ML IV SCH (16:54)
[2018-07-10 05:45] LABS: BASO % 0.6 % (0.0-2.0); EOS # 0.4 K/uL (0.0-0.7); EOS % 5.4 % (0.0-4.0); LYMPH # 1.4 K/uL (1.0-4.3); LYMPH % 17.5 % (20.0-40.0); MEAN CELL VOLUME 86.6 fl (80.0-94.0); MEAN CORPUSCULAR HEMOGLOBIN 29.5 pg (27.0-31.0); MEAN PLATELET VOLUME 9.8 fl (7.2-11.7); MONO # 0.7 K/uL (0.0-0.8); MONO % 9.5 % (0.0-10.0); NEUT # 5.3 K/uL (1.8-7.0); NRBC % 0.2 % (0.0-0.0); RBC 5.1 Mil/uL (4.40-5.90); RED CELL DISTRIBUTION WIDTH 16.7 % (11.5-14.5); WHITE BLOOD COUNT 7.9 K/uL (4.8-10.8)
[2018-07-10 05:55] LABS: ALB/GLOB RATIO 1.2 (1.0-2.1); ALBUMIN 3.6 g/dL (3.5-5.0); ALT/SGPT 39 U/L (21-72); AST/SGOT 26 U/L (17-59); BLOOD UREA NITROGEN 20 mg/dl (9-20); GFR NON-AFRICAN AMERICAN > 60
[2018-07-10] MEDS: Potassium Chloride 8 MEQ TER PO SCH (08:51)
--- NOTE | 2018-07-10 11:33 | PN ---
DATE: 07/10/2018 SUBJECTIVE: The patient is seen and examined. Interim events noted. Consults noted and appreciated. Case discussed with juvenile justice specialist and the patient. The patient remains in intensive care unit on nasal cannula, tolerating very well. Denies any chest pain. No shortness of breath. Complains of generalized weakness and tiredness. PHYSICAL EXAMINATION: GENERAL: The patient is in no acute distress. VITAL SIGNS: Stable. Heart rate is a little bit tachy. HEART: S1 and S2 normal and regular. Tachycardic. LUNGS: Good bilateral air exchange. There are no crepitations. ABDOMEN: Soft, nontender. EXTREMITIES: No calf swelling. No tenderness. No acute ischemia. ASSEMBLER ARRANGER: Exam is essentially unchanged. DIAGNOSTIC DATA: Available diagnostic data reviewed. Telemetry monitoring does not show significant arrhythmia, but there is tachycardia. ASSESSMENT AND PLAN: Overall, the patient is slowly improving. He tolerated extubation well. Plan as ordered. Artem Gilliland MD
--- NOTE | 2018-07-10 11:50 | PN ---
DATE: 07/10/2018 SUBJECTIVE: The patient seen and examined. Interim events noted. Consults noted and appreciated. Neurology followup and intervention noted and appreciated. The patient remains in progressive care unit, on telemetry monitoring. The patient feels okay. He is a little strong, but still has little weakness on his left side. No chest pain. No shortness of breath. PHYSICAL EXAMINATION: GENERAL: The patient is in no acute distress. VITAL SIGNS: Stable. HEART: S1 and S2, normal and regular. LUNGS: Good bilateral air exchange. ABDOMEN: Soft, nontender. EXTREMITIES: No edema. No calf swelling. No tenderness. No acute ischemia. CENTRAL NERVOUS SYSTEM: Exam is essentially unchanged. The patient does have limited weakness, but this seems to be improving on the left side. DIAGNOSTIC DATA: Available diagnostic data reviewed. ASSESSMENT: Overall, the patient's general medical condition is stable. Telemetry monitoring does not reveal significant arrhythmia. PLAN: As ordered. Artem Gilliland MD
[2018-07-11 06:48] LABS: HEMOGLOBIN 15.8 g/dL (12.0-18.0); MEAN CELL VOLUME 86.7 fl (80.0-94.0); MEAN CORPUSCULAR HEMOGLOBIN 29.7 pg (27.0-31.0); MEAN CORPUSCULAR HGB CONC 34.3 g/dL (33.0-37.0); RBC 5.32 Mil/uL (4.40-5.90); RED CELL DISTRIBUTION WIDTH 15.9 % (11.5-14.5); WHITE BLOOD COUNT 7.7 K/uL (4.8-10.8)
[2018-07-11 07:34] LABS: ALB/GLOB RATIO 1.1 (1.0-2.1); ALBUMIN 3.7 g/dL (3.5-5.0); ALT/SGPT 46 U/L (21-72); AST/SGOT 29 U/L (17-59); BLOOD UREA NITROGEN 21 mg/dl (9-20); CALCIUM 9.3 mg/dL (8.4-10.2); GFR NON-AFRICAN AMERICAN > 60
[2018-07-11] MEDS: NIFEdipine 30 mg ER Tab PO SCH (09:53)
[2018-07-11] MEDS: Potassium Chloride 8 MEQ TER PO SCH (09:54)
--- NOTE | 2018-07-11 11:20 | PN ---
DATE: 07/11/2018 SUBJECTIVE: The patient is seen and examined. Interim events noted. Consults noted and appreciated. The patient remains in progressive care unit with telemetry monitoring. Awake and responsive. Denies any specific complaint of chest pain or shortness of breath. Nursing staff reported that he just stopped drinking. The patient was asymptomatic. PHYSICAL EXAMINATION: GENERAL: The patient is in no acute distress. VITAL SIGNS: Stable. HEART: S1 and S2 normal. Irregularly irregular and bradycardic. LUNGS: Good bilateral air exchange. ABDOMEN: Soft and nontender. EXTREMITIES: No edema. No calf swelling. N o tenderness. No acute ischemia. CENTRAL NERVOUS SYSTEM: Essentially unchanged. DIAGNOSTIC DATA: Available diagnostic data reviewed. ASSESSMENT AND PLAN: Telemetry monitoring reveals episodes of bradycardia, lowest being in low 30s. The patient was asymptomatic during these episodes. Overall, the patient is hemodynamically stable, although heart rate does go low and blood pressure also remains in 150s. We will start the patient on Procardia XL to control and increase heart rate. Plan as ordered. Case and plan discussed with the patient. Artem Gilliland MD
[2018-07-12 05:33] LABS: MEAN CELL VOLUME 86.4 fl (80.0-94.0); MEAN CORPUSCULAR HEMOGLOBIN 29.9 pg (27.0-31.0); MEAN CORPUSCULAR HGB CONC 34.6 g/dL (33.0-37.0); RBC 5.35 Mil/uL (4.40-5.90); WHITE BLOOD COUNT 9.4 K/uL (4.8-10.8)
[2018-07-12 05:43] LABS: ALB/GLOB RATIO 1.2 (1.0-2.1); ALBUMIN 3.8 g/dL (3.5-5.0); ALT/SGPT 45 U/L (21-72); AST/SGOT 25 U/L (17-59); BLOOD UREA NITROGEN 25 mg/dl (9-20); CALCIUM 9.1 mg/dL (8.4-10.2); GFR NON-AFRICAN AMERICAN 58
[2018-07-12] MEDS: NIFEdipine 30 mg ER Tab PO SCH (08:57)
[2018-07-12] MEDS: Potassium Chloride 8 MEQ TER PO SCH (08:57)
--- NOTE | 2018-07-12 11:11 | PN ---
DATE: 07/12/2018 SUBJECTIVE: The patient seen and examined. Interim events noted. Consults noted and appreciated. The patient remains in progressive care unit, on telemetry monitoring. . PHYSICAL EXAMINATION: GENERAL: The patient is in no acute distress. VITAL SIGNS: Stable. HEART: S1 and S2, normal, regular. LUNGS: Good bilateral air exchange. ABDOMEN: Soft, nontender. EXTREMITIES: No edema. No calf swelling. No tenderness. No acute ischemia. CENTRAL NERVOUS SYSTEM: Essentially unchanged. DIAGNOSTIC DATA: Available diagnostic data reviewed. Telemetry monitoring showed episodes of fernie and tachycardia. ASSESSMENT AND PLAN: Overall, the patient is clinically stable. Cardiology input is for further management of arrhythmia including possible automatic implantable cardioverter defibrillator placement. Plan as ordered. Case and plan discussed with the patient. Artem Gilliland MD
--- NOTE | 2018-07-12 16:58 | CARD ---
APPROVED REPORT Date of service: 07/12/2018 Indication CVA/TIA Atrial Fibrillation Procedure The above named patient recieved 24.8 millicuries of Tc99m tagged red blood cells intravenously. After achieving equilibrium, gated imaging of 16/frame/cycle was performed utillizing Gamma camera interfaced with a digital computer and gated device. Gated imaging was then performed in the left anterior oblique, anterior, and the left lateral projections. Findings Calculated LV Ejection Fraction is 47%. Conclusion Calculated Ejection Fraction is 47 %.
--- NOTE | 2018-07-12 23:28 | CP.PCM.PN ---
Subjective - Date & Time of Evaluation Date of Evaluation: 07/07/18 Time of Evaluation: 16:00 - Subjective Subjective: left arm weakness improving Off cardizem gtt Objective - Vital Signs/Intake and Output Vital Signs (last 24 hours): Temp Pulse Resp BP Pulse Ox 97.3 F L 69 16 148/93 H 98 07/12/18 20:09 07/12/18 20:09 07/12/18 20:09 07/12/18 20:09 07/12/18 20:09 - Medications Medications: Current Medications Apixaban (Eliquis) 5 mg PO BID [facility]; Protocol Last Admin: 07/12/18 17:08 Dose: 5 mg Aspirin (Ecotrin) 81 mg PO DAILY@0900 [facility] Last Admin: 07/12/18 08:57 Dose: 81 mg Atorvastatin Calcium (Lipitor) 40 mg PO DAILY [facility] Last Admin: 07/12/18 08:58 Dose: 40 mg Furosemide (Lasix) 40 mg PO DAILY [facility] Last Admin: 07/12/18 08:58 Dose: 40 mg Sodium Chloride (Sodium Chloride 0.9%) 1,000 mls @ 100 mls/hr IV .Q10H [facility] Last Admin: 07/09/18 16:54 Dose: 100 mls/hr Losartan Potassium (Cozaar) 100 mg PO DAILY [facility] Last Admin: 07/12/18 08:57 Dose: 100 mg Metoprolol Tartrate (Lopressor) 25 mg PO Q12 [facility] Nifedipine (Procardia Xl) 30 mg PO DAILY [facility] Last Admin: 07/12/18 08:57 Dose: 30 mg Potassium Chloride (Klor-Con 8) 8 meq PO DAILY [facility] Last Admin: 07/12/18 08:57 Dose: 8 meq - Labs Labs: 07/12/18 04:55 07/12/18 04:55 PT 11.7 Seconds (9.8-13.1) 07/06/18 07:40 INR 1.0 07/06/18 07:40 APTT 31.8 Seconds (25.6-37.1) 07/06/18 07:40 - Constitutional Appears: Well - Head Exam Head Exam: ATRAUMATIC, NORMAL INSPECTION, NORMOCEPHALIC - Eye Exam Eye Exam: EOMI, Normal appearance, PERRL Pupil Exam: NORMAL ACCOMODATION, PERRL - ENT Exam ENT Exam: Mucous Membranes Moist, Normal Exam - Neck Exam Neck Exam: Full ROM, Normal Inspection. absent: Lymphadenopathy - Respiratory Exam Respiratory Exam: Clear to Ausculation Bilateral, NORMAL BREATHING PATTERN - Cardiovascular Exam Cardiovascular Exam: Tachycardia, Irregular Rhythm, +S1, +S2, Murmur - GI/Abdominal Exam GI & Abdominal Exam: Soft, Normal Bowel Sounds. absent: Tenderness - Extremities Exam Extremities Exam: Full ROM, Normal Capillary Refill, Normal Inspection. absent: Joint Swelling, Pedal Edema - Back Exam Back Exam: NORMAL INSPECTION - Neurological Exam Neurological Exam: Alert, Awake, CN II-XII Intact, Oriented x3 Neuro motor strength exam: Left Upper Extremity: 4, Right Upper Extremity: 5, Left Lower Extremity: 4, Right Lower Extremity: 5 - Psychiatric Exam Psychiatric exam: Normal Affect, Normal Mood - Skin Skin Exam: Dry, Intact, Normal Color, Warm Assessment and Plan (1) Atrial fibrillation Assessment & Plan: rate control with bb and ccb arb eliquis Status: Acute (2) CVA (cerebral vascular accident) Assessment & Plan: MRI asa eliquis Status: Acute (3) CHF exacerbation Assessment & Plan: Echo shows improvemnt in EF cont arb cont bb Status: Acute (4) Hypertension Status: Chronic (5) Dyspnea Status: Resolved
--- NOTE | 2018-07-12 23:32 | CP.PCM.PN ---
Subjective - Date & Time of Evaluation Date of Evaluation: 07/08/18 Time of Evaluation: 20:00 - Subjective Subjective: Hr dropped to 40's overnight CCb dced Objective - Vital Signs/Intake and Output Vital Signs (last 24 hours): Temp Pulse Resp BP Pulse Ox 97.3 F L 69 16 148/93 H 98 07/12/18 20:09 07/12/18 20:09 07/12/18 20:09 07/12/18 20:09 07/12/18 20:09 - Medications Medications: Current Medications Apixaban (Eliquis) 5 mg PO BID [facility]; Protocol Last Admin: 07/12/18 17:08 Dose: 5 mg Aspirin (Ecotrin) 81 mg PO DAILY@0900 [facility] Last Admin: 07/12/18 08:57 Dose: 81 mg Atorvastatin Calcium (Lipitor) 40 mg PO DAILY [facility] Last Admin: 07/12/18 08:58 Dose: 40 mg Furosemide (Lasix) 40 mg PO DAILY [facility] Last Admin: 07/12/18 08:58 Dose: 40 mg Sodium Chloride (Sodium Chloride 0.9%) 1,000 mls @ 100 mls/hr IV .Q10H [facility] Last Admin: 07/09/18 16:54 Dose: 100 mls/hr Losartan Potassium (Cozaar) 100 mg PO DAILY [facility] Last Admin: 07/12/18 08:57 Dose: 100 mg Metoprolol Tartrate (Lopressor) 25 mg PO Q12 [facility] Nifedipine (Procardia Xl) 30 mg PO DAILY [facility] Last Admin: 07/12/18 08:57 Dose: 30 mg Potassium Chloride (Klor-Con 8) 8 meq PO DAILY [facility] Last Admin: 07/12/18 08:57 Dose: 8 meq - Labs Labs: 07/12/18 04:55 07/12/18 04:55 PT 11.7 Seconds (9.8-13.1) 07/06/18 07:40 INR 1.0 07/06/18 07:40 APTT 31.8 Seconds (25.6-37.1) 07/06/18 07:40 - Constitutional Appears: Well - Head Exam Head Exam: ATRAUMATIC, NORMAL INSPECTION, NORMOCEPHALIC - Eye Exam Eye Exam: EOMI, Normal appearance, PERRL Pupil Exam: NORMAL ACCOMODATION, PERRL - ENT Exam ENT Exam: Mucous Membranes Moist, Normal Exam - Neck Exam Neck Exam: Full ROM, Normal Inspection. absent: Lymphadenopathy - Respiratory Exam Respiratory Exam: Clear to Ausculation Bilateral, NORMAL BREATHING PATTERN - Cardiovascular Exam Cardiovascular Exam: Irregular Rhythm, +S1, +S2, Murmur - GI/Abdominal Exam GI & Abdominal Exam: Soft, Normal Bowel Sounds. absent: Tenderness - Extremities Exam Extremities Exam: Full ROM, Normal Capillary Refill, Normal Inspection. absent: Joint Swelling, Pedal Edema - Back Exam Back Exam: NORMAL INSPECTION - Neurological Exam Neurological Exam: Alert, Awake, Oriented x3 Neuro motor strength exam: Left Upper Extremity: 4, Left Lower Extremity: 4 - Psychiatric Exam Psychiatric exam: Normal Affect, Normal Mood - Skin Skin Exam: Dry, Intact, Normal Color, Warm Assessment and Plan (1) Atrial fibrillation Status: Acute (2) CVA (cerebral vascular accident) Status: Acute (3) CHF exacerbation Status: Acute (4) Hypertension Status: Chronic (5) Dyspnea Status: Resolved
--- NOTE | 2018-07-12 23:35 | CP.PCM.PN ---
Subjective - Date & Time of Evaluation Date of Evaluation: 07/09/18 Time of Evaluation: 11:00 - Subjective Subjective: left sided weakness improving Objective - Vital Signs/Intake and Output Vital Signs (last 24 hours): Temp Pulse Resp BP Pulse Ox 97.3 F L 69 16 148/93 H 98 07/12/18 20:09 07/12/18 20:09 07/12/18 20:09 07/12/18 20:09 07/12/18 20:09 - Medications Medications: Current Medications Apixaban (Eliquis) 5 mg PO BID [facility]; Protocol Last Admin: 07/12/18 17:08 Dose: 5 mg Aspirin (Ecotrin) 81 mg PO DAILY@0900 [facility] Last Admin: 07/12/18 08:57 Dose: 81 mg Atorvastatin Calcium (Lipitor) 40 mg PO DAILY [facility] Last Admin: 07/12/18 08:58 Dose: 40 mg Furosemide (Lasix) 40 mg PO DAILY [facility] Last Admin: 07/12/18 08:58 Dose: 40 mg Sodium Chloride (Sodium Chloride 0.9%) 1,000 mls @ 100 mls/hr IV .Q10H [facility] Last Admin: 07/09/18 16:54 Dose: 100 mls/hr Losartan Potassium (Cozaar) 100 mg PO DAILY [facility] Last Admin: 07/12/18 08:57 Dose: 100 mg Metoprolol Tartrate (Lopressor) 25 mg PO Q12 [facility] Nifedipine (Procardia Xl) 30 mg PO DAILY [facility] Last Admin: 07/12/18 08:57 Dose: 30 mg Potassium Chloride (Klor-Con 8) 8 meq PO DAILY [facility] Last Admin: 07/12/18 08:57 Dose: 8 meq - Labs Labs: 07/12/18 04:55 07/12/18 04:55 PT 11.7 Seconds (9.8-13.1) 07/06/18 07:40 INR 1.0 07/06/18 07:40 APTT 31.8 Seconds (25.6-37.1) 07/06/18 07:40 - Constitutional Appears: Well - Head Exam Head Exam: ATRAUMATIC, NORMAL INSPECTION, NORMOCEPHALIC - Eye Exam Eye Exam: EOMI, Normal appearance, PERRL Pupil Exam: NORMAL ACCOMODATION, PERRL - ENT Exam ENT Exam: Mucous Membranes Moist, Normal Exam - Neck Exam Neck Exam: Full ROM, Normal Inspection. absent: Lymphadenopathy - Respiratory Exam Respiratory Exam: Clear to Ausculation Bilateral, NORMAL BREATHING PATTERN - Cardiovascular Exam Cardiovascular Exam: Irregular Rhythm, +S1, +S2, Murmur - GI/Abdominal Exam GI & Abdominal Exam: Soft, Normal Bowel Sounds. absent: Tenderness - Extremities Exam Extremities Exam: Full ROM, Normal Capillary Refill, Normal Inspection. absent: Joint Swelling, Pedal Edema - Back Exam Back Exam: NORMAL INSPECTION - Neurological Exam Neurological Exam: Alert, Awake, CN II-XII Intact, Oriented x3 Neuro motor strength exam: Left Upper Extremity: 4, Left Lower Extremity: 4 - Psychiatric Exam Psychiatric exam: Normal Affect, Normal Mood - Skin Skin Exam: Dry, Intact, Normal Color, Warm Assessment and Plan (1) Atrial fibrillation Assessment & Plan: ? PPM for fernie-tachy cont bb cont eliquis Status: Acute (2) CVA (cerebral vascular accident) Status: Acute (3) CHF exacerbation Assessment & Plan: acute systolic 2' to afib cont bb, arb cont eliquis Status: Acute (4) Hypertension Status: Chronic (5) Dyspnea Status: Resolved
--- NOTE | 2018-07-12 23:37 | CP.PCM.PN ---
Subjective - Date & Time of Evaluation Date of Evaluation: 07/12/18 Time of Evaluation: 18:00 - Subjective Subjective: Left sided weakness improving Objective - Vital Signs/Intake and Output Vital Signs (last 24 hours): Temp Pulse Resp BP Pulse Ox 97.3 F L 69 16 148/93 H 98 07/12/18 20:09 07/12/18 20:09 07/12/18 20:09 07/12/18 20:09 07/12/18 20:09 - Medications Medications: Current Medications Apixaban (Eliquis) 5 mg PO BID [facility]; Protocol Last Admin: 07/12/18 17:08 Dose: 5 mg Aspirin (Ecotrin) 81 mg PO DAILY@0900 [facility] Last Admin: 07/12/18 08:57 Dose: 81 mg Atorvastatin Calcium (Lipitor) 40 mg PO DAILY [facility] Last Admin: 07/12/18 08:58 Dose: 40 mg Furosemide (Lasix) 40 mg PO DAILY [facility] Last Admin: 07/12/18 08:58 Dose: 40 mg Sodium Chloride (Sodium Chloride 0.9%) 1,000 mls @ 100 mls/hr IV .Q10H [facility] Last Admin: 07/09/18 16:54 Dose: 100 mls/hr Losartan Potassium (Cozaar) 100 mg PO DAILY [facility] Last Admin: 07/12/18 08:57 Dose: 100 mg Metoprolol Tartrate (Lopressor) 25 mg PO Q12 [facility] Nifedipine (Procardia Xl) 30 mg PO DAILY [facility] Last Admin: 07/12/18 08:57 Dose: 30 mg Potassium Chloride (Klor-Con 8) 8 meq PO DAILY [facility] Last Admin: 07/12/18 08:57 Dose: 8 meq - Labs Labs: 07/12/18 04:55 07/12/18 04:55 PT 11.7 Seconds (9.8-13.1) 07/06/18 07:40 INR 1.0 07/06/18 07:40 APTT 31.8 Seconds (25.6-37.1) 07/06/18 07:40 - Constitutional Appears: Well - Head Exam Head Exam: ATRAUMATIC, NORMAL INSPECTION, NORMOCEPHALIC - Eye Exam Eye Exam: EOMI, Normal appearance, PERRL Pupil Exam: NORMAL ACCOMODATION, PERRL - ENT Exam ENT Exam: Mucous Membranes Moist, Normal Exam - Neck Exam Neck Exam: Full ROM, Normal Inspection. absent: Lymphadenopathy - Respiratory Exam Respiratory Exam: Clear to Ausculation Bilateral, NORMAL BREATHING PATTERN - Cardiovascular Exam Cardiovascular Exam: Irregular Rhythm, +S1, +S2, Murmur - GI/Abdominal Exam GI & Abdominal Exam: Soft, Normal Bowel Sounds. absent: Tenderness - Extremities Exam Extremities Exam: Full ROM, Normal Capillary Refill, Normal Inspection. absent: Joint Swelling, Pedal Edema - Back Exam Back Exam: NORMAL INSPECTION - Neurological Exam Neurological Exam: Alert, Awake, CN II-XII Intact, Normal Gait, Oriented x3 - Psychiatric Exam Psychiatric exam: Normal Affect, Normal Mood - Skin Skin Exam: Dry, Intact, Normal Color, Warm Assessment and Plan (1) Atrial fibrillation Status: Acute (2) CVA (cerebral vascular accident) Status: Acute (3) CHF exacerbation Status: Acute (4) Hypertension Status: Chronic (5) Dyspnea Status: Resolved
[2018-07-13] MEDS: Sodium Chloride 0.9% 1,000 ML IV SCH ×2 (01:08→09:11)
--- NOTE | 2018-07-13 08:11 | CP.PCM.PN ---
<[place] - Last Filed: 07/13/18 09:28> Subjective - Date & Time of Evaluation Date of Evaluation: 07/13/18 Time of Evaluation: 07:50 - Subjective Subjective: Patient seen and examined this morning. Continues to report improved left arm weakness and numbness. No acute overnight events. MUGA scan shows calculated LV EF is 47%. Denies any acute complaints.Denies any chest pain, shortness of breath or dizziness. Objective - Vital Signs/Intake and Output Vital Signs (last 24 hours): Temp Pulse Resp BP Pulse Ox 98.1 F 66 18 137/88 98 07/13/18 07:54 07/13/18 07:54 07/13/18 07:54 07/13/18 07:54 07/13/18 07:54 - Medications Medications: Current Medications Apixaban (Eliquis) 5 mg PO BID [facility]; Protocol Last Admin: 07/12/18 17:08 Dose: 5 mg Aspirin (Ecotrin) 81 mg PO DAILY@0900 [facility] Last Admin: 07/12/18 08:57 Dose: 81 mg Atorvastatin Calcium (Lipitor) 40 mg PO DAILY [facility] Last Admin: 07/12/18 08:58 Dose: 40 mg Furosemide (Lasix) 40 mg PO DAILY [facility] Last Admin: 07/12/18 08:58 Dose: 40 mg Sodium Chloride (Sodium Chloride 0.9%) 1,000 mls @ 100 mls/hr IV .Q10H [facility] Last Admin: 07/13/18 01:08 Dose: 100 mls/hr Losartan Potassium (Cozaar) 100 mg PO DAILY [facility] Last Admin: 07/12/18 08:57 Dose: 100 mg Metoprolol Tartrate (Lopressor) 25 mg PO Q12 [facility] Nifedipine (Procardia Xl) 30 mg PO DAILY [facility] Last Admin: 07/12/18 08:57 Dose: 30 mg Potassium Chloride (Klor-Con 8) 8 meq PO DAILY [facility] Last Admin: 07/12/18 08:57 Dose: 8 meq - Labs Labs: 07/12/18 04:55 07/12/18 04:55 PT 11.7 Seconds (9.8-13.1) 07/06/18 07:40 INR 1.0 07/06/18 07:40 APTT 31.8 Seconds (25.6-37.1) 07/06/18 07:40 - Constitutional Appears: No Acute Distress - Head Exam Head Exam: NORMAL INSPECTION - Eye Exam Eye Exam: Normal appearance - ENT Exam ENT Exam: Mucous Membranes Moist - Neck Exam Neck Exam: Normal Inspection - Respiratory Exam Respiratory Exam: Clear to Ausculation Bilateral, NORMAL BREATHING PATTERN. absent: Rhonchi, Wheezes - Cardiovascular Exam Cardiovascular Exam: Irregular Rhythm, +S1, +S2 - GI/Abdominal Exam GI & Abdominal Exam: Soft, Normal Bowel Sounds. absent: Tenderness - Neurological Exam Neurological Exam: Alert, Awake - Psychiatric Exam Psychiatric exam: Normal Affect, Normal Mood - Skin Skin Exam: Normal Color, Warm Assessment and Plan - Assessment and Plan (Free Text) Assessment: 52 yo male with PMHx of chronic paroxysmal atrial fibrillation and non-ischemic cardiomyopathy admitted for left sided weakness and MRI shows tiny acute infarct inferior right hannah. Plan: Neurology consult, Dr. Cartagena, consult appreciated -Brain MRI: IMPRESSION: Tiny acute infarct inferior right hannah. There are least 2 additional pontine but chronic infarcts as well as additional chronic infarcts as per above. 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 No abnormal intracranial enhancement. -Cardiology consult, Dr. Knight, consult appreciated -MUGA scan on 07/12/18 shows calculated LV EF is 47%. -c/w PT/OT -f/u AM labs -Rest of the plan as ordered. Patient seen, examined and plan d/w Dr. Talat Diaz, pgy-2 <Artem Gilliland - Last Filed: 07/14/18 10:37> Objective - Vital Signs/Intake and Output Vital Signs (last 24 hours): Temp Pulse Resp BP Pulse Ox 98.1 F 62 20 147/91 H 98 07/14/18 07:50 07/14/18 08:22 07/14/18 07:50 07/14/18 08:22 07/14/18 07:50 - Medications Medications: Current Medications Amiodarone HCl (Cordarone) 400 mg PO BID [facility] Last Admin: 07/14/18 08:22 Dose: 400 mg Apixaban (Eliquis) 5 mg PO BID [facility]; Protocol Last Admin: 07/14/18 08:21 Dose: 5 mg Aspirin (Ecotrin) 81 mg PO DAILY@0900 [facility] Last Admin: 07/14/18 08:22 Dose: 81 mg Atorvastatin Calcium (Lipitor) 40 mg PO DAILY [facility] Last Admin: 07/14/18 08:23 Dose: 40 mg Furosemide (Lasix) 40 mg PO DAILY [facility] Last Admin: 07/14/18 08:21 Dose: 40 mg Losartan Potassium (Cozaar) 100 mg PO DAILY [facility] Last Admin: 07/14/18 08:22 Dose: 100 mg Metoprolol Tartrate (Lopressor) 25 mg PO Q12 [facility] Potassium Chloride (Klor-Con 8) 8 meq PO DAILY [facility] Last Admin: 07/14/18 08:23 Dose: 8 meq - Labs Labs: 07/14/18 05:00 07/14/18 05:00 PT 11.7 Seconds (9.8-13.1) 07/06/18 07:40 INR 1.0 07/06/18 07:40 APTT 31.8 Seconds (25.6-37.1) 07/06/18 07:40 Assessment and Plan - Assessment and Plan (Free Text) Assessment: Patient was personally seen and examined by me in rounds with residents. Available labs and diagnostic data reviewed. Case, Patient's condition and management plan discussed with residents in rounds. Agree with resident's progress note. Plan: As ordered.
[2018-07-13] MEDS: Potassium Chloride 8 MEQ TER PO SCH (09:09)
[2018-07-13] MEDS: NIFEdipine 30 mg ER Tab PO SCH (09:10)
--- NOTE | 2018-07-13 10:29 | CP.PCM.PN ---
Subjective - Date & Time of Evaluation Date of Evaluation: 07/13/18 Time of Evaluation: 10:27 - Subjective Subjective: HR noted to be 39 on telemetry overnight EF 47% on muga feeling better with right sided weakness amulating with HR of 80-90's Objective - Vital Signs/Intake and Output Vital Signs (last 24 hours): Temp Pulse Resp BP Pulse Ox 98.1 F 66 18 137/88 98 07/13/18 07:54 07/13/18 09:10 07/13/18 07:54 07/13/18 09:10 07/13/18 07:54 - Medications Medications: Current Medications Aspirin (Ecotrin) 81 mg PO DAILY@0900 [facility] Last Admin: 07/13/18 09:10 Dose: 81 mg Atorvastatin Calcium (Lipitor) 40 mg PO DAILY [facility] Last Admin: 07/13/18 09:10 Dose: 40 mg Furosemide (Lasix) 40 mg PO DAILY [facility] Last Admin: 07/13/18 09:10 Dose: 40 mg Sodium Chloride (Sodium Chloride 0.9%) 1,000 mls @ 100 mls/hr IV .Q10H [facility] Last Admin: 07/13/18 09:11 Dose: 100 mls/hr Losartan Potassium (Cozaar) 100 mg PO DAILY [facility] Last Admin: 07/13/18 09:10 Dose: 100 mg Metoprolol Tartrate (Lopressor) 25 mg PO Q12 [facility] Potassium Chloride (Klor-Con 8) 8 meq PO DAILY [facility] Last Admin: 07/13/18 09:09 Dose: 8 meq - Labs Labs: 07/12/18 04:55 07/12/18 04:55 PT 11.7 Seconds (9.8-13.1) 07/06/18 07:40 INR 1.0 07/06/18 07:40 APTT 31.8 Seconds (25.6-37.1) 07/06/18 07:40 - Constitutional Appears: Well - Head Exam Head Exam: ATRAUMATIC, NORMAL INSPECTION, NORMOCEPHALIC - Eye Exam Eye Exam: EOMI, Normal appearance, PERRL Pupil Exam: NORMAL ACCOMODATION, PERRL - ENT Exam ENT Exam: Mucous Membranes Moist, Normal Exam - Neck Exam Neck Exam: Full ROM, Normal Inspection. absent: Lymphadenopathy - Respiratory Exam Respiratory Exam: Clear to Ausculation Bilateral, NORMAL BREATHING PATTERN - Cardiovascular Exam Cardiovascular Exam: Irregular Rhythm, +S1, +S2, Murmur - GI/Abdominal Exam GI & Abdominal Exam: Soft, Normal Bowel Sounds. absent: Tenderness - Extremities Exam Extremities Exam: Full ROM, Normal Capillary Refill, Normal Inspection. absent: Joint Swelling, Pedal Edema - Back Exam Back Exam: NORMAL INSPECTION - Neurological Exam Neurological Exam: Alert, Awake, CN II-XII Intact, Normal Gait, Oriented x3 - Psychiatric Exam Psychiatric exam: Normal Affect, Normal Mood - Skin Skin Exam: Dry, Intact, Normal Color, Warm Assessment and Plan (1) Atrial fibrillation Assessment & Plan: HR varying between 40's to 140's EP doesn't want to do ablation at this time due to recent CVA dc cardizem plan for BRYON/CV next week start low dose amiodarone 400mg bid cont eliquis Status: Acute (2) CVA (cerebral vascular accident) Assessment & Plan: stable improving cont asa , eliquis cont arb Status: Acute (3) CHF exacerbation Assessment & Plan: Diastolic EF 47% cont bb, arb dc ccb cont lasix Status: Acute (4) Hypertension Status: Chronic (5) Dyspnea Status: Resolved
[2018-07-14 05:23] LABS: HEMOGLOBIN 15.2 g/dL (12.0-18.0); MEAN CELL VOLUME 86.8 fl (80.0-94.0); MEAN CORPUSCULAR HEMOGLOBIN 29.8 pg (27.0-31.0); MEAN CORPUSCULAR HGB CONC 34.4 g/dL (33.0-37.0); RBC 5.08 Mil/uL (4.40-5.90); RED CELL DISTRIBUTION WIDTH 16.3 % (11.5-14.5); WHITE BLOOD COUNT 9.8 K/uL (4.8-10.8)
[2018-07-14 05:43] LABS: ALB/GLOB RATIO 1.2 (1.0-2.1); ALBUMIN 3.7 g/dL (3.5-5.0); ALT/SGPT 49 U/L (21-72); AST/SGOT 25 U/L (17-59); BLOOD UREA NITROGEN 22 mg/dl (9-20); CALCIUM 9.3 mg/dL (8.4-10.2); GFR NON-AFRICAN AMERICAN > 60
[2018-07-14] MEDS: Potassium Chloride 8 MEQ TER PO SCH (08:23)
--- NOTE | 2018-07-14 10:09 | CP.PCM.DIS ---
Provider - Provider Date of Admission: 07/06/18 09:15 Attending physician: Artem Gilliland MD Consults: 07/06/18 07:29 Stroke Team Consult Stat Comment: Consulting Provider: Neurohospitalist Consulting Physician: NEUROHOSP Neurohospitalist for Consult: Carlos Gamez Neurohospitalist for Consult: Sobia Cartagena Reason for Consult: left sided weakness 07/06/18 09:17 Physician Consult Stat Comment: Consulting Provider: Luciano Knight Consulting Physician: Luciano Knight Reason for Consult: cva, afib and chf 07/06/18 15:00 Nursing Referral for Wound Care Routine Comment: Physician Instructions: Reason For Exam: Discoloration of legs Time Spent in preparation of Discharge (in minutes): 30 Diagnosis - Discharge Diagnosis (1) CVA (cerebral vascular accident) Status: Acute (2) Atrial fibrillation Status: Chronic (3) Thrombocytopenia Status: Chronic (4) Hypertension Status: Chronic Hospital Course - Lab Results Lab Results: Most Recent Lab Values WBC 9.8 K/uL (4.8-10.8) 07/14/18 05:00 RBC 5.08 Mil/uL (4.40-5.90) 07/14/18 05:00 Hgb 15.2 g/dL (12.0-18.0) 07/14/18 05:00 Hct 44.1 % (35.0-51.0) 07/14/18 05:00 MCV 86.8 fl (80.0-94.0) 07/14/18 05:00 MCH 29.8 pg (27.0-31.0) 07/14/18 05:00 MCHC 34.4 g/dL (33.0-37.0) 07/14/18 05:00 RDW 16.3 % (11.5-14.5) H 07/14/18 05:00 Plt Count 135 K/uL (130-400) 07/14/18 05:00 MPV 9.8 fl (7.2-11.7) 07/10/18 04:30 Neut % (Auto) 67.0 % (50.0-75.0) 07/10/18 04:30 Lymph % (Auto) 17.5 % (20.0-40.0) L 07/10/18 04:30 [place] % (Auto) 9.5 % (0.0-10.0) 07/10/18 04:30 Eos % (Auto) 5.4 % (0.0-4.0) H 07/10/18 04:30 Baso % (Auto) 0.6 % (0.0-2.0) 07/10/18 04:30 Neut # (Auto) 5.3 K/uL (1.8-7.0) 07/10/18 04:30 Lymph # (Auto) 1.4 K/uL (1.0-4.3) 07/10/18 04:30 [place] # (Auto) 0.7 K/uL (0.0-0.8) 07/10/18 04:30 Eos # (Auto) 0.4 K/uL (0.0-0.7) 07/10/18 04:30 Baso # (Auto) 0.0 K/uL (0.0-0.2) 07/10/18 04:30 PT 11.7 Seconds (9.8-13.1) 07/06/18 07:40 INR 1.0 07/06/18 07:40 APTT 31.8 Seconds (25.6-37.1) 07/06/18 07:40 Sodium 139 mmol/l (132-148) 07/14/18 05:00 Potassium 4.1 MMOL/L (3.6-5.0) 07/14/18 05:00 Chloride 107 mmol/L (98-107) 07/14/18 05:00 Carbon Dioxide 25 mmol/L (22-30) 07/14/18 05:00 Anion Gap 11 (10-20) 07/14/18 05:00 BUN 22 mg/dl (9-20) H 07/14/18 05:00 Creatinine 1.1 mg/dl (0.8-1.5) 07/14/18 05:00 Est GFR ( Amer) > 60 07/14/18 05:00 Est GFR (Non-Af Amer) > 60 07/14/18 05:00 POC Glucose (mg/dL) 105 mg/dL (65-110) 07/06/18 07:25 Random Glucose 82 mg/dL (75-110) 07/14/18 05:00 Hemoglobin A1c 5.7 % (4.2-6.5) 07/06/18 10:18 Calcium 9.3 mg/dL (8.4-10.2) 07/14/18 05:00 Phosphorus 4.0 mg/dl (2.5-4.5) 07/11/18 05:20 Magnesium 2.1 MG/DL (1.6-2.3) 07/11/18 05:20 Total Bilirubin 0.8 mg/dl (0.2-1.3) 07/14/18 05:00 AST 25 U/L (17-59) 07/14/18 05:00 ALT 49 U/L (21-72) 07/14/18 05:00 Alkaline Phosphatase 54 U/L (38-126) 07/14/18 05:00 Troponin I 0.0740 ng/mL (0.00-0.120) 07/08/18 00:00 Total Protein 6.8 G/DL (6.3-8.2) 07/14/18 05:00 Albumin 3.7 g/dL (3.5-5.0) 07/14/18 05:00 Globulin 3.1 gm/dL (2.2-3.9) 07/14/18 05:00 Albumin/Globulin Ratio 1.2 (1.0-2.1) 07/14/18 05:00 Triglycerides 112 mg/DL (0-149) 07/06/18 10:18 Cholesterol 118 mg/dL (0-199) 07/06/18 10:18 LDL Cholesterol Direct 59 mg/dL (0-129) 07/06/18 10:18 HDL Cholesterol 46 MG/DL (30-70) 07/06/18 10:18 Vitamin B12 432 pg/mL (239-931) 07/06/18 10:18 TSH 3rd Generation 0.77 mIU/ML (0.46-4.68) 07/06/18 10:18 Blood Type O POSITIVE 07/06/18 07:40 Antibody Screen Negative 07/06/18 07:40 BBK History Checked Patient has bt 07/06/18 07:40 - Hospital Course Hospital Course: 52 year old male with PMHx chronic paroxysmal atrial fibrillation, CHF w/ preserved EF (HFpEF), HTN presented to [facility] on 07/06/18 with sudden onset of left sided facial, arm and leg weakness. NIHSS was 6. Code Stroke was called and neurologist Dr. Cartagena was consulted. Patient was not a candidate for TPA due to unknown time of onset. Head CT showed no acute stroke. Patient had brain MRI on 07/07/18 which showed tiny acute infarct inferior right hannah. Patient received physical therapy and medical management for CVA. [employer] Dr. Knight was consulted due to patients atrial fibrillation. Patients currently on 400 mg po bid, started on 07/13/18 for atrial fibrillation. Today, patient report he is feeling well and left sided weakness improving. Denies any acute complaints. Patient is hemodynamically stable to discharge to acute rehab for physical therapy for gait strengthening and optimizing functional independence. Discharge Exam - Head Exam Head Exam: ATRAUMATIC, NORMAL INSPECTION, NORMOCEPHALIC - Eye Exam Eye Exam: Normal appearance - ENT Exam ENT Exam: Mucous Membranes Moist - Neck Exam Neck exam: Normal Inspection - Respiratory Exam Respiratory Exam: Clear to PA & Lateral, NORMAL BREATHING PATTERN. absent: Wheezes, Respiratory Distress - Cardiovascular Exam Cardiovascular Exam: Irregular Rhythm, +S1, +S2 - GI/Abdominal Exam GI & Abdominal Exam: Normal Bowel Sounds, Soft. absent: Tenderness - Neurological Exam Neurological exam: Alert, Oriented x3 - Psychiatric Exam Psychiatric exam: Normal Affect, Normal Mood - Skin Skin Exam: Normal Color, Warm Discharge Plan - Follow Up Plan Condition: FAIR Disposition: REHAB FACILITY/REHAB UNIT Instructions: Atrial Fibrillation (DC), Stroke (DC) Referrals: Aide Shields MD [Family Provider] - Luciano Knight MD [Staff Provider] - Soiba Cartagena MD [Medical Doctor] -
[2018-07-14 11:58] VITALS: TEMP 97.8
[2018-07-14 15:41] VITALS: BP 139/95; PULSE 83; RESP 17; O2SAT 99
== END 2018-07-14 16:30 | DRG 65 ==
LOC: H.ER 07:15 → H.ERHOLD 09:15 → H.TEL 11:10
PROVIDERS: ADMIT Internal Medicine; ATTEND Internal Medicine
DX: I63.9 Cerebral infarction, unspecified (principal); I42.0 Dilated cardiomyopathy; I50.32 Chronic diastolic (congestive) heart failure; G81.94 Hemiplegia, unspecified affecting left nondominant side; I11.0 Hypertensive heart disease with heart failure; I48.0 Paroxysmal atrial fibrillation; I48.2 Chronic atrial fibrillation; D69.6 Thrombocytopenia, unspecified; I25.10 Atherosclerotic heart disease of native coronary artery without angina pectoris; Z79.01 Long term (current) use of anticoagulants; Z79.82 Long term (current) use of aspirin

== ENCOUNTER 2018-07-14 14:46 | Inpatient (IN) | payer BC ==
[2018-07-14 16:45] VITALS: BMI 33.0
--- NOTE | 2018-07-14 17:48 | PCM.OPOC ---
Physiatry Overall Plan of Care - Overall Plan of Care Estimated Length of Stay in Weeks: 2 Rehab Impairment: Mobility, Gait, Balance, Coordination Etiologic Diagnosis: Cerebrovascular Accident Rehab/Medical Prognosis: Good - Anticipated Interventions Physical Therapy:: Yes Occupational Therapy:: Yes Speech Therapy:: No Recreational Therapy:: Yes - Therapy Goals Bed Mobility: Independent Ambulation: Supervision Functional Positional Changes:: Supervision - Discharge Plan Identification of Barriers to Discharge: Home Situation Discharge Destination: Home
--- NOTE | 2018-07-14 17:51 | CP.PCM.CON ---
History of Present Illness - History of Present Illness History of Present Illness: Dr Clements PMR consultation on Troy Noguera, left hand dominant who was born 1965, admitted to [facility] for acute inpatient rehabilitation following a right pontine CVA with left HP. He has been on disability since 2000 secondary to ca rdiomyopathy. On amiodarone. + AFib on coumadin. Review of Systems - Constitutional Constitutional: absent: Anorexia, Chills - EENT Eyes: absent: Change in Vision Ears: absent: Ear Discharge, Ear Pain Nose/Mouth/Throat: absent: Nasal Congestion, Nasal Discharge - Cardiovascular Cardiovascular: absent: Chest Pain - Respiratory Respiratory: absent: Dyspnea - Gastrointestinal Gastrointestinal: absent: Abdominal Pain - Musculoskeletal Musculoskeletal: absent: Back Pain - Integumentary Integumentary: absent: Bleeding Lesions - Neurological Neurological: Paresthesias (left hand which he states is new). absent: Abnormal Hearing, Abnormal Movements - Psychiatric Psychiatric: absent: Anxiety Past Patient History - Past Medical History & Family History Past Medical History?: Yes - Past Social History Smoking Status: Never Smoked Alcohol: None Drugs: Denies Home Situation {Lives}: Friends - CARDIAC Hx Cardiac Disorders: Yes - PULMONARY Hx Respiratory Disorders: No - NEUROLOGICAL Hx Neurological Disorder: No - HEENT Hx HEENT Problems: No - RENAL Hx Chronic Kidney Disease: No - ENDOCRINE/METABOLIC Hx Endocrine Disorders: No - HEMATOLOGICAL/ONCOLOGICAL Hx Blood Disorders: No Hx AIDS: No Hx Human Immunodeficiency Virus (HIV): No - INTEGUMENTARY Hx Dermatological Problems: No - MUSCULOSKELETAL/RHEUMATOLOGICAL Hx Falls: Yes - GASTROINTESTINAL Hx Gastrointestinal Disorders: No - GENITOURINARY/GYNECOLOGICAL Hx Genitourinary Disorders: No - PSYCHIATRIC Hx Psychophysiologic Disorder: No Hx Substance Use: No - SURGICAL HISTORY Hx Surgeries: No - ANESTHESIA Hx Anesthesia: No Hx Anesthesia Reactions: No Meds Allergies/Adverse Reactions: Allergies Allergy/AdvReac Type Severity Reaction Status Date / Time No Known Allergies Allergy Verified 04/26/18 10:40 - Medications Medications: Current Medications Amiodarone HCl (Cordarone) 400 mg PO BID [facility] Apixaban (Eliquis) 5 mg PO BID [facility]; Protocol Aspirin (Ecotrin) 81 mg PO DAILY [facility] Atorvastatin Calcium (Lipitor) 40 mg PO DAILY [facility] Potassium Chloride (Klor-Con 8) 8 meq PO DAILY [facility] Physical Exam - Constitutional Appears: Non-toxic, No Acute Distress - Head Exam Head Exam: ATRAUMATIC, NORMAL INSPECTION, NORMOCEPHALIC - Eye Exam Eye Exam: EOMI Pupil Exam: NORMAL ACCOMODATION - ENT Exam ENT Exam: Mucous Membranes Moist - Respiratory Exam Respiratory Exam: NORMAL BREATHING PATTERN - Cardiovascular Exam Cardiovascular Exam: Irregular Rhythm, Systolic Murmur - GI/Abdominal Exam GI & Abdominal Exam: absent: Distended, Firm - Extremities Exam Extremities exam: Negative for: calf tenderness, pedal edema - Neurological Exam Neurological exam: Alert, CN II-XII Intact, Oriented x3 - Psychiatric Exam Psychiatric exam: Normal Affect, Normal Mood - Skin Skin Exam: Warm Assessment & Plan - Assessment and Plan (Free Text) Assessment: PT/OT to continue to help increase functional independence Team conference for d/c planning Pain: controlled Vascular: no evidence of DVT GI: No evidence of constipation or diarrhea He has 4/5 left UE/LE with 3/5 distal ankle on the left Patient is an excellent acute rehabilitation candidate and will have focused PT, OT and recreational therapy to help facilitate a safe and appropriate d/c plan Impairment code: 01.1
--- NOTE | 2018-07-15 07:26 | CP.PCM.HP ---
<Sultan Emily - Last Filed: 07/15/18 11:25> History of Present Illness - History of Present Illness History of Present Illness: 52 year old male with PMHx chronic paroxysmal atrial fibrillation, CHF w/ preserved EF (HFpEF), HTN and recent left sided CVA admitted to acute rehab yesterday for physical therapy for gait strengthening and optimizing functional independence. Patient came to [facility] ER on 07/06/18 for left sided facial, arm and leg weakness and hospitalized until 07/14/18. This morning, patient seen and examined with Dr. Gilliland. Patient reports left sided weakness is improving. Denies any chest pain, dyspnea, nausea, vomiting or dizziness. ROS: 12 systems reviewed and negative except as mentioned above. PMD: Dr. Sultana PMHx: HTN, AFib, HF with preserved EF, CVA MEDS: as per med rec ALL: NKDA SurgHx: none SocialHx: denies tobacco/Etoh or drugs FamilyHx: mother at 75 from [place], father is 86 and healthy, all siblings are healthy Present on Admission - Present on Admission Any Indicators Present on Admission: No Review of Systems - Review of Systems All systems: reviewed and no additional remarkable complaints except Past Patient History - Past Medical History & Family History Past Medical History?: Yes - Past Social History Smoking Status: Never Smoked Alcohol: None Drugs: Denies Home Situation {Lives}: Friends - CARDIAC Hx Cardiac Disorders: Yes - PULMONARY Hx Respiratory Disorders: No - NEUROLOGICAL Hx Neurological Disorder: No - HEENT Hx HEENT Problems: No - RENAL Hx Chronic Kidney Disease: No - ENDOCRINE/METABOLIC Hx Endocrine Disorders: No - HEMATOLOGICAL/ONCOLOGICAL Hx Blood Disorders: No Hx AIDS: No Hx Human Immunodeficiency Virus (HIV): No - INTEGUMENTARY Hx Dermatological Problems: No - MUSCULOSKELETAL/RHEUMATOLOGICAL Hx Falls: Yes - GASTROINTESTINAL Hx Gastrointestinal Disorders: No - GENITOURINARY/GYNECOLOGICAL Hx Genitourinary Disorders: No - PSYCHIATRIC Hx Psychophysiologic Disorder: No Hx Substance Use: No - SURGICAL HISTORY Hx Surgeries: No - ANESTHESIA Hx Anesthesia: No Hx Anesthesia Reactions: No Meds Allergies/Adverse Reactions: Allergies Allergy/AdvReac Type Severity Reaction Status Date / Time No Known Allergies Allergy Verified 04/26/18 10:40 Physical Exam - Constitutional Appears: No Acute Distress - Head Exam Head Exam: NORMAL INSPECTION - Eye Exam Eye Exam: Normal appearance - ENT Exam ENT Exam: Mucous Membranes Moist - Neck Exam Neck exam: Positive for: Normal Inspection - Respiratory Exam Respiratory Exam: Clear to Auscultation Bilateral, NORMAL BREATHING PATTERN. absent: Rhonchi, Wheezes - Cardiovascular Exam Cardiovascular Exam: Irregular Rhythm, +S1, +S2 - GI/Abdominal Exam GI & Abdominal Exam: Normal Bowel Sounds, Soft. absent: Tenderness - Extremities Exam Extremities exam: Positive for: normal inspection. Negative for: calf tenderness - Neurological Exam Neurological exam: Alert, CN II-XII Intact, Oriented x3 - Psychiatric Exam Psychiatric exam: Normal Affect, Normal Mood - Skin Skin Exam: Normal Color, Warm Results - Vital Signs Recent Vital Signs: Last Vital Signs Temp 7.0 F L 07/14/18 19:51 Pulse 72 07/14/18 19:51 Resp 20 07/14/18 19:51 BP 148/84 07/14/18 19:51 Pulse Ox 98 07/14/18 19:51 - Labs Result Diagrams: 07/15/18 08:12 07/15/18 08:12 Assessment & Plan - Assessment and Plan (Free Text) Assessment: 52 year old male with PMHx chronic paroxysmal atrial fibrillation, CHF w/ preserved EF (HFpEF), HTN and recent (07/06/18) left sided CVA admitted to acute rehab yesterday for physical therapy for gait strengthening and optimizing functional independence. Plan: CVA w/ left sided residual weakness Continue with PT/OT c/w asprin Atrial fibrillation -Religious Educator Dr. Knight on board -c/w amiodarone 400 mg po bid -c/w Eliquis 5 mg po bid HTN: -c/w losartan and Lasix DVT prophylaxis: -on Eliquis 5 mg po bid Rest of the plan as ordered Patient seen, examined and plan discussed with Dr. Gilliland <Artem Gilliland - Last Filed: 07/15/18 15:41> Results - Vital Signs Recent Vital Signs: Last Vital Signs Temp 97.7 F 07/15/18 07:27 Pulse 63 07/15/18 08:33 Resp 20 07/15/18 07:27 BP 152/98 H 07/15/18 08:34 Pulse Ox 99 07/15/18 07:27 - Labs Result Diagrams: 07/15/18 08:12 07/15/18 08:12 Labs: Laboratory Results - last 24 hr 07/15/18 07/15/18 08:12 08:12 WBC 8.2 RBC 5.33 Hgb 16.1 Hct 46.7 MCV 87.6 MCH 30.2 MCHC 34.5 RDW 16.4 H Plt Count 139 Sodium 138 Potassium 4.5 Chloride 106 Carbon Dioxide 25 Anion Gap 12 BUN 22 H Creatinine 1.3 Est GFR ( Amer) > 60 Est GFR (Non-Af Amer) 58 Random Glucose 167 H Calcium 9.2 Total Bilirubin 0.8 AST 21 ALT 36 Alkaline Phosphatase 57 Total Protein 7.4 Albumin 4.1 Globulin 3.3 Albumin/Globulin Ratio 1.2 Assessment & Plan - Assessment and Plan (Free Text) Assessment: Patient was personally seen and examined by me in rounds with residents. Available labs and diagnostic data reviewed. Case, Patient's condition and management plan discussed with residents in rounds. Agree with resident's progress note. Plan: As ordered.
[2018-07-15] MEDS: Potassium Chloride 8 MEQ TER PO SCH (08:34)
[2018-07-15 08:43] LABS: ALB/GLOB RATIO 1.2 (1.0-2.1); ALBUMIN 4.1 g/dL (3.5-5.0); ALT/SGPT 36 U/L (21-72); AST/SGOT 21 U/L (17-59); BLOOD UREA NITROGEN 22 mg/dl (9-20); CALCIUM 9.2 mg/dL (8.4-10.2); GFR NON-AFRICAN AMERICAN 58; HEMOGLOBIN 16.1 g/dL (12.0-18.0); MEAN CELL VOLUME 87.6 fl (80.0-94.0); MEAN CORPUSCULAR HEMOGLOBIN 30.2 pg (27.0-31.0); MEAN CORPUSCULAR HGB CONC 34.5 g/dL (33.0-37.0); RBC 5.33 Mil/uL (4.40-5.90); RED CELL DISTRIBUTION WIDTH 16.4 % (11.5-14.5); WHITE BLOOD COUNT 8.2 K/uL (4.8-10.8)
[2018-07-15] MEDS ORDERED: Potassium Chloride 20 mEq ER Tab PO SCH (09:00)
--- NOTE | 2018-07-15 18:43 | CP.PCM.PN ---
Subjective - Date & Time of Evaluation Date of Evaluation: 07/15/18 Time of Evaluation: 18:42 - Subjective Subjective: Patient seen in the room very happy with therapy today denies sob/cp still with left hand numbness no cyanosis/jaundice ambulated 125' w/o AD continue current care team conference next week for d/c planning Objective - Vital Signs/Intake and Output Vital Signs (last 24 hours): Temp Pulse Resp BP Pulse Ox 97.7 F 74 20 147/83 100 07/15/18 07:27 07/15/18 16:44 07/15/18 07:27 07/15/18 16:44 07/15/18 08:47 - Medications Medications: Current Medications Amiodarone HCl (Cordarone) 400 mg PO BID [facility] Last Admin: 07/15/18 16:44 Dose: 400 mg Apixaban (Eliquis) 5 mg PO BID [facility]; Protocol Last Admin: 07/15/18 16:45 Dose: 5 mg Aspirin (Ecotrin) 81 mg PO DAILY [facility] Last Admin: 07/15/18 08:34 Dose: 81 mg Atorvastatin Calcium (Lipitor) 40 mg PO DAILY [facility] Last Admin: 07/15/18 08:35 Dose: 40 mg Furosemide (Lasix) 40 mg PO DAILY [facility] Last Admin: 07/15/18 08:34 Dose: 40 mg Losartan Potassium (Cozaar) 100 mg PO DAILY [facility] Last Admin: 07/15/18 08:33 Dose: 100 mg Potassium Chloride (Klor-Con 8) 8 meq PO DAILY [facility] Last Admin: 07/15/18 08:34 Dose: 8 meq - Labs Labs: 07/15/18 08:12 07/15/18 08:12
[2018-07-16] MEDS: Potassium Chloride 8 MEQ TER PO SCH (08:09)
--- NOTE | 2018-07-16 08:52 | CP.PCM.PN ---
<Sultan Emily - Last Filed: 07/16/18 13:24> Subjective - Date & Time of Evaluation Date of Evaluation: 07/16/18 Time of Evaluation: 08:40 - Subjective Subjective: Patient seen and examined this morning with Dr. Soni No acute overnight events Participating in PT/OT Reports numbness of left distal fingers, denies any arm weakness, numbness or facial numbness. Denies any chest pain or dyspnea. Objective - Vital Signs/Intake and Output Vital Signs (last 24 hours): Temp Pulse Resp BP Pulse Ox 97.7 F 62 18 161/85 H 99 07/16/18 07:31 07/16/18 08:08 07/16/18 07:31 07/16/18 08:09 07/16/18 07:31 - Medications Medications: Current Medications Amiodarone HCl (Cordarone) 400 mg PO BID [facility] Last Admin: 07/16/18 08:07 Dose: 400 mg Apixaban (Eliquis) 5 mg PO BID [facility]; Protocol Last Admin: 07/16/18 08:07 Dose: 5 mg Aspirin (Ecotrin) 81 mg PO DAILY [facility] Last Admin: 07/16/18 08:08 Dose: 81 mg Atorvastatin Calcium (Lipitor) 40 mg PO DAILY [facility] Last Admin: 07/16/18 08:09 Dose: 40 mg Furosemide (Lasix) 40 mg PO DAILY [facility] Last Admin: 07/16/18 08:09 Dose: 40 mg Losartan Potassium (Cozaar) 100 mg PO DAILY [facility] Last Admin: 07/16/18 08:08 Dose: 100 mg Potassium Chloride (Klor-Con 8) 8 meq PO DAILY [facility] Last Admin: 07/16/18 08:09 Dose: 8 meq - Labs Labs: 07/15/18 08:12 07/15/18 08:12 - Constitutional Appears: No Acute Distress - Head Exam Head Exam: NORMAL INSPECTION - Eye Exam Eye Exam: Normal appearance - ENT Exam ENT Exam: Mucous Membranes Moist - Neck Exam Neck Exam: Full ROM, Normal Inspection - Respiratory Exam Respiratory Exam: Clear to Ausculation Bilateral, NORMAL BREATHING PATTERN. absent: Rhonchi, Wheezes - Cardiovascular Exam Cardiovascular Exam: Irregular Rhythm, +S1, +S2 - GI/Abdominal Exam GI & Abdominal Exam: Soft, Normal Bowel Sounds. absent: Tenderness - Extremities Exam Extremities Exam: Normal Inspection. absent: Calf Tenderness, Pedal Edema - Neurological Exam Neurological Exam: Alert, Awake, Normal Gait, Oriented x3 - Psychiatric Exam Psychiatric exam: Normal Affect, Normal Mood - Skin Skin Exam: Normal Color Assessment and Plan - Assessment and Plan (Free Text) Assessment: 52 year old male with PMHx chronic paroxysmal atrial fibrillation, CHF w/ preserved EF (HFpEF), HTN and recent (07/06/18) left sided CVA admitted to acute rehab yesterday for physical therapy for gait strengthening and optimizing functional independence. Plan: CVA w/ left sided residual weakness -Continue with PT/OT -c/w asprin Atrial fibrillation -Server Service Assistant Dr. Knight on board -c/w amiodarone 400 mg po bid -c/w Eliquis 5 mg po bid -Patient states he completed 3 months of Holter monitor recently. Advised to give the monitor to his circle edger. HTN: -c/w losartan and Lasix DVT prophylaxis: -on Eliquis 5 mg po bid Rest of the plan as ordered Patient seen, examined and plan discussed with Dr. Nae Diaz, pgy-2 <Jem Soni - Last Filed: 07/18/18 22:51> Subjective - Subjective Subjective: I was present during evaluation and discussed with Dr Diaz re plans of care and mgt. Jem Soni M.D. Objective - Vital Signs/Intake and Output Vital Signs (last 24 hours): Temp Pulse Resp BP Pulse Ox 98.2 F 61 21 144/94 H 99 07/18/18 08:30 07/18/18 16:51 07/18/18 08:30 07/18/18 16:51 07/18/18 08:30 - Medications Medications: Current Medications Amiodarone HCl (Cordarone) 400 mg PO BID [facility] Last Admin: 07/18/18 16:51 Dose: 400 mg Apixaban (Eliquis) 5 mg PO BID [facility]; Protocol Last Admin: 07/18/18 16:55 Dose: 5 mg Aspirin (Ecotrin) 81 mg PO DAILY [facility] Last Admin: 07/18/18 08:57 Dose: 81 mg Atorvastatin Calcium (Lipitor) 40 mg PO DAILY [facility] Last Admin: 07/18/18 08:57 Dose: 40 mg Furosemide (Lasix) 40 mg PO DAILY [facility] Last Admin: 07/18/18 08:58 Dose: 40 mg Losartan Potassium (Cozaar) 100 mg PO DAILY [facility] Last Admin: 07/18/18 08:57 Dose: 100 mg Potassium Chloride (Klor-Con 8) 8 meq PO DAILY [facility] Last Admin: 07/18/18 08:57 Dose: 8 meq - Labs Labs: 07/17/18 05:30 07/17/18 05:30
--- NOTE | 2018-07-16 16:47 | CP.PCM.PN ---
Subjective - Date & Time of Evaluation Date of Evaluation: 07/16/18 Time of Evaluation: 16:45 - Subjective Subjective: Patient seen in the PT gym and discussed with therapist He is doing very well independent in many aspects team conf next week and will look for early discharge given his improving functional status. Objective - Vital Signs/Intake and Output Vital Signs (last 24 hours): Temp Pulse Resp BP Pulse Ox 97.7 F 72 18 120/80 98 07/16/18 07:31 07/16/18 16:35 07/16/18 07:31 07/16/18 16:35 07/16/18 09:18 - Medications Medications: Current Medications Amiodarone HCl (Cordarone) 400 mg PO BID [facility] Last Admin: 07/16/18 16:35 Dose: 400 mg Apixaban (Eliquis) 5 mg PO BID [facility]; Protocol Last Admin: 07/16/18 16:35 Dose: 5 mg Aspirin (Ecotrin) 81 mg PO DAILY [facility] Last Admin: 07/16/18 08:08 Dose: 81 mg Atorvastatin Calcium (Lipitor) 40 mg PO DAILY [facility] Last Admin: 07/16/18 08:09 Dose: 40 mg Furosemide (Lasix) 40 mg PO DAILY [facility] Last Admin: 07/16/18 08:09 Dose: 40 mg Losartan Potassium (Cozaar) 100 mg PO DAILY [facility] Last Admin: 07/16/18 08:08 Dose: 100 mg Potassium Chloride (Klor-Con 8) 8 meq PO DAILY [facility] Last Admin: 07/16/18 08:09 Dose: 8 meq - Labs Labs: 07/15/18 08:12 07/15/18 08:12
--- NOTE | 2018-07-16 17:05 | CP.PCM.CON ---
Past Patient History - Past Medical History & Family History Past Medical History?: Yes - Past Social History Smoking Status: Never Smoked Alcohol: None Drugs: Denies Home Situation {Lives}: Friends - CARDIAC Hx Cardiac Disorders: Yes Hx Congestive Heart Failure: Yes Hx Hypertension: Yes - PULMONARY Hx Respiratory Disorders: No - NEUROLOGICAL Hx Neurological Disorder: No - HEENT Hx HEENT Problems: No - RENAL Hx Chronic Kidney Disease: No - ENDOCRINE/METABOLIC Hx Endocrine Disorders: No - HEMATOLOGICAL/ONCOLOGICAL Hx Blood Disorders: No Hx AIDS: No Hx Human Immunodeficiency Virus (HIV): No - INTEGUMENTARY Hx Dermatological Problems: No - MUSCULOSKELETAL/RHEUMATOLOGICAL Hx Falls: Yes - GASTROINTESTINAL Hx Gastrointestinal Disorders: No - GENITOURINARY/GYNECOLOGICAL Hx Genitourinary Disorders: No - PSYCHIATRIC Hx Psychophysiologic Disorder: No Hx Substance Use: No - SURGICAL HISTORY Hx Surgeries: No - ANESTHESIA Hx Anesthesia: No Hx Anesthesia Reactions: No Meds Allergies/Adverse Reactions: Allergies Allergy/AdvReac Type Severity Reaction Status Date / Time No Known Allergies Allergy Verified 04/26/18 10:40 - Medications Medications: Current Medications Amiodarone HCl (Cordarone) 400 mg PO BID [facility] Last Admin: 07/16/18 16:35 Dose: 400 mg Apixaban (Eliquis) 5 mg PO BID [facility]; Protocol Last Admin: 07/16/18 16:35 Dose: 5 mg Aspirin (Ecotrin) 81 mg PO DAILY [facility] Last Admin: 07/16/18 08:08 Dose: 81 mg Atorvastatin Calcium (Lipitor) 40 mg PO DAILY [facility] Last Admin: 07/16/18 08:09 Dose: 40 mg Furosemide (Lasix) 40 mg PO DAILY [facility] Last Admin: 07/16/18 08:09 Dose: 40 mg Losartan Potassium (Cozaar) 100 mg PO DAILY [facility] Last Admin: 07/16/18 08:08 Dose: 100 mg Potassium Chloride (Klor-Con 8) 8 meq PO DAILY [facility] Last Admin: 07/16/18 08:09 Dose: 8 meq Results - Vital Signs Recent Vital Signs: Last Vital Signs Temp 97.7 F 07/16/18 07:31 Pulse 72 07/16/18 16:35 Resp 18 07/16/18 07:31 BP 120/80 07/16/18 16:35 Pulse Ox 98 07/16/18 09:18 - Labs Result Diagrams: 07/15/18 08:12 07/15/18 08:12
[2018-07-17 07:38] LABS: BASO # 0.1 K/uL (0.0-0.2); BASO % 1.2 % (0.0-2.0); EOS # 0.4 K/uL (0.0-0.7); EOS % 3.7 % (0.0-4.0); HEMOGLOBIN 16.2 g/dL (12.0-18.0); LYMPH % 20.1 % (20.0-40.0); MEAN CELL VOLUME 86.8 fl (80.0-94.0); MEAN CORPUSCULAR HEMOGLOBIN 30.5 pg (27.0-31.0); MEAN CORPUSCULAR HGB CONC 35.2 g/dL (33.0-37.0); MEAN PLATELET VOLUME 10.8 fl (7.2-11.7); MONO # 0.8 K/uL (0.0-0.8); MONO % 8.2 % (0.0-10.0); NEUT # 6.6 K/uL (1.8-7.0); NEUT % 66.8 % (50.0-75.0); NRBC % 0.3 % (0.0-0.0); RBC 5.3 Mil/uL (4.40-5.90); RED CELL DISTRIBUTION WIDTH 16.4 % (11.5-14.5); WHITE BLOOD COUNT 9.8 K/uL (4.8-10.8)
[2018-07-17 08:06] LABS: ALB/GLOB RATIO 1.3 (1.0-2.1); ALBUMIN 4.1 g/dL (3.5-5.0); CALCIUM 9.4 mg/dL (8.4-10.2)
[2018-07-17] MEDS: Potassium Chloride 8 MEQ TER PO SCH (08:27)
[2018-07-18] MEDS: Potassium Chloride 8 MEQ TER PO SCH (08:57)
--- NOTE | 2018-07-18 14:39 | CP.PCM.PN ---
Subjective - Date & Time of Evaluation Date of Evaluation: 07/17/18 Time of Evaluation: 08:30 - Subjective Subjective: no acute complaints at present Objective - Vital Signs/Intake and Output Vital Signs (last 24 hours): Temp Pulse Resp BP Pulse Ox 98.2 F 63 21 155/72 H 99 07/18/18 08:30 07/18/18 08:58 07/18/18 08:30 07/18/18 08:58 07/18/18 08:30 - Medications Medications: Current Medications Amiodarone HCl (Cordarone) 400 mg PO BID [facility] Last Admin: 07/18/18 08:58 Dose: 400 mg Apixaban (Eliquis) 5 mg PO BID [facility]; Protocol Last Admin: 07/18/18 08:57 Dose: 5 mg Aspirin (Ecotrin) 81 mg PO DAILY [facility] Last Admin: 07/18/18 08:57 Dose: 81 mg Atorvastatin Calcium (Lipitor) 40 mg PO DAILY [facility] Last Admin: 07/18/18 08:57 Dose: 40 mg Furosemide (Lasix) 40 mg PO DAILY [facility] Last Admin: 07/18/18 08:58 Dose: 40 mg Losartan Potassium (Cozaar) 100 mg PO DAILY [facility] Last Admin: 07/18/18 08:57 Dose: 100 mg Potassium Chloride (Klor-Con 8) 8 meq PO DAILY [facility] Last Admin: 07/18/18 08:57 Dose: 8 meq - Labs Labs: 07/17/18 05:30 07/17/18 05:30 - Constitutional Appears: Well - Head Exam Head Exam: ATRAUMATIC, NORMAL INSPECTION, NORMOCEPHALIC - Eye Exam Eye Exam: EOMI, Normal appearance Pupil Exam: NORMAL ACCOMODATION, PERRL - ENT Exam ENT Exam: Mucous Membranes Moist, Normal Exam - Neck Exam Neck Exam: Normal Inspection - Respiratory Exam Respiratory Exam: Clear to Ausculation Bilateral, NORMAL BREATHING PATTERN - Cardiovascular Exam Cardiovascular Exam: REGULAR RHYTHM - GI/Abdominal Exam GI & Abdominal Exam: Normal Bowel Sounds - Rectal Exam Rectal Exam: NORMAL INSPECTION - Exam External exam: NORMAL EXTERNAL EXAM - Extremities Exam Extremities Exam: Normal Inspection - Back Exam Back Exam: NORMAL INSPECTION - Neurological Exam Neurological Exam: Alert Additional comments: weakness - Psychiatric Exam Psychiatric exam: Normal Affect - Skin Skin Exam: Normal Color Assessment and Plan (1) CHF exacerbation Status: Acute (2) CVA (cerebral vascular accident) Assessment & Plan: plan for physical, occupational,range of motion, strenthening, transfers and gait training covering for Dr Clements. Status: Acute (3) TIA (transient ischemic attack) Status: Acute (4) Atrial fibrillation Status: Chronic (5) Hypertension Status: Chronic (6) Acute kidney injury Status: Resolved
--- NOTE | 2018-07-18 22:58 | CP.PCM.PN ---
Subjective - Date & Time of Evaluation Date of Evaluation: 07/17/18 Time of Evaluation: 10:30 - Subjective Subjective: patient feels a lot better He is doing well with PT Has no new symptoms. Objective - Vital Signs/Intake and Output Vital Signs (last 24 hours): Temp Pulse Resp BP Pulse Ox 98.2 F 61 21 144/94 H 99 07/18/18 08:30 07/18/18 16:51 07/18/18 08:30 07/18/18 16:51 07/18/18 08:30 - Medications Medications: Current Medications Amiodarone HCl (Cordarone) 400 mg PO BID [facility] Last Admin: 07/18/18 16:51 Dose: 400 mg Apixaban (Eliquis) 5 mg PO BID [facility]; Protocol Last Admin: 07/18/18 16:55 Dose: 5 mg Aspirin (Ecotrin) 81 mg PO DAILY [facility] Last Admin: 07/18/18 08:57 Dose: 81 mg Atorvastatin Calcium (Lipitor) 40 mg PO DAILY [facility] Last Admin: 07/18/18 08:57 Dose: 40 mg Furosemide (Lasix) 40 mg PO DAILY [facility] Last Admin: 07/18/18 08:58 Dose: 40 mg Losartan Potassium (Cozaar) 100 mg PO DAILY [facility] Last Admin: 07/18/18 08:57 Dose: 100 mg Potassium Chloride (Klor-Con 8) 8 meq PO DAILY [facility] Last Admin: 07/18/18 08:57 Dose: 8 meq - Labs Labs: 07/17/18 05:30 07/17/18 05:30 - Head Exam Head Exam: NORMAL INSPECTION - Eye Exam Eye Exam: Normal appearance - ENT Exam ENT Exam: Mucous Membranes Moist - Respiratory Exam Respiratory Exam: Clear to Ausculation Bilateral - Cardiovascular Exam Cardiovascular Exam: REGULAR RHYTHM - GI/Abdominal Exam GI & Abdominal Exam: Soft - Neurological Exam Neurological Exam: Awake, Oriented x3 Assessment and Plan (1) CVA (cerebral vascular accident) Status: Acute (2) Atrial fibrillation Status: Chronic (3) Hypertension Status: Chronic - Assessment and Plan (Free Text) Plan: Cont meds Cont tx Cont meds. Cont PT.
--- NOTE | 2018-07-18 23:02 | CP.PCM.PN ---
Subjective - Date & Time of Evaluation Date of Evaluation: 07/18/18 Time of Evaluation: 19:35 - Subjective Subjective: Patient is doing a lot better Very high functioning Has better strenght with extremities. Has no new neuro sx Objective - Vital Signs/Intake and Output Vital Signs (last 24 hours): Temp Pulse Resp BP Pulse Ox 98.2 F 61 21 144/94 H 99 07/18/18 08:30 07/18/18 16:51 07/18/18 08:30 07/18/18 16:51 07/18/18 08:30 - Medications Medications: Current Medications Amiodarone HCl (Cordarone) 400 mg PO BID [facility] Last Admin: 07/18/18 16:51 Dose: 400 mg Apixaban (Eliquis) 5 mg PO BID [facility]; Protocol Last Admin: 07/18/18 16:55 Dose: 5 mg Aspirin (Ecotrin) 81 mg PO DAILY [facility] Last Admin: 07/18/18 08:57 Dose: 81 mg Atorvastatin Calcium (Lipitor) 40 mg PO DAILY [facility] Last Admin: 07/18/18 08:57 Dose: 40 mg Furosemide (Lasix) 40 mg PO DAILY [facility] Last Admin: 07/18/18 08:58 Dose: 40 mg Losartan Potassium (Cozaar) 100 mg PO DAILY [facility] Last Admin: 07/18/18 08:57 Dose: 100 mg Potassium Chloride (Klor-Con 8) 8 meq PO DAILY [facility] Last Admin: 07/18/18 08:57 Dose: 8 meq - Labs Labs: 07/17/18 05:30 07/17/18 05:30 - Head Exam Head Exam: NORMAL INSPECTION - Eye Exam Eye Exam: Normal appearance - ENT Exam ENT Exam: Mucous Membranes Moist - Respiratory Exam Respiratory Exam: Clear to Ausculation Bilateral - Cardiovascular Exam Cardiovascular Exam: REGULAR RHYTHM - GI/Abdominal Exam GI & Abdominal Exam: Normal Bowel Sounds - Neurological Exam Neurological Exam: Awake, Oriented x3 Assessment and Plan (1) CVA (cerebral vascular accident) Status: Acute (2) Atrial fibrillation Status: Chronic (3) Hypertension Status: Chronic (4) Hyperlipidemia Status: Acute - Assessment and Plan (Free Text) Plan: Cont meds Cont tx Cont PT
[2018-07-18 23:17] VITALS: RESP 20
[2018-07-19] MEDS: Potassium Chloride 8 MEQ TER PO SCH (08:12)
[2018-07-20] MEDS: Potassium Chloride 8 MEQ TER PO SCH (08:19)
--- NOTE | 2018-07-20 08:27 | CP.PCM.PN ---
Subjective - Date & Time of Evaluation Date of Evaluation: 07/20/18 Time of Evaluation: 07:50 - Subjective Subjective: Patient seen and examined this morning with Dr. Soni No acute overnight events Participating in PT/OT and doing well. Denies any chest pain, dyspnea, headache, dizziness, nausea, or vomiting. Objective - Vital Signs/Intake and Output Vital Signs (last 24 hours): Temp Pulse Resp BP Pulse Ox 97.3 F L 69 20 145/80 98 07/20/18 07:40 07/20/18 08:19 07/20/18 07:40 07/20/18 08:19 07/19/18 20:27 - Medications Medications: Current Medications Amiodarone HCl (Cordarone) 400 mg PO BID [facility] Last Admin: 07/20/18 08:19 Dose: 400 mg Apixaban (Eliquis) 5 mg PO BID [facility]; Protocol Last Admin: 07/20/18 08:18 Dose: 5 mg Aspirin (Ecotrin) 81 mg PO DAILY [facility] Last Admin: 07/20/18 08:18 Dose: 81 mg Atorvastatin Calcium (Lipitor) 40 mg PO DAILY [facility] Last Admin: 07/20/18 08:18 Dose: 40 mg Furosemide (Lasix) 40 mg PO DAILY [facility] Last Admin: 07/20/18 08:18 Dose: 40 mg Losartan Potassium (Cozaar) 100 mg PO DAILY [facility] Last Admin: 07/20/18 08:18 Dose: 100 mg Potassium Chloride (Klor-Con 8) 8 meq PO DAILY [facility] Last Admin: 07/20/18 08:19 Dose: 8 meq - Labs Labs: 07/17/18 05:30 07/17/18 05:30 - Constitutional Appears: No Acute Distress - Head Exam Head Exam: NORMAL INSPECTION - Eye Exam Eye Exam: Normal appearance - ENT Exam ENT Exam: Mucous Membranes Moist - Respiratory Exam Respiratory Exam: Clear to Ausculation Bilateral, NORMAL BREATHING PATTERN. absent: Rhonchi, Wheezes - Cardiovascular Exam Cardiovascular Exam: Irregular Rhythm, +S1, +S2 - GI/Abdominal Exam GI & Abdominal Exam: Soft, Normal Bowel Sounds. absent: Tenderness - Extremities Exam Extremities Exam: Normal Inspection - Neurological Exam Neurological Exam: Alert, Awake - Psychiatric Exam Psychiatric exam: Normal Affect, Normal Mood - Skin Skin Exam: Normal Color Assessment and Plan - Assessment and Plan (Free Text) Assessment: 52 year old male with PMHx chronic paroxysmal atrial fibrillation, CHF w/ preserved EF (HFpEF), HTN and recent (07/06/18) left sided CVA admitted to acute rehab on 07/15/18 for physical therapy for gait strengthening and optimizing functional independence. Patient is recovering well with PT/OT and residual weakness resolved. Anticipate discharge on 07/22/18. Plan: CVA w/ left sided residual weakness -Continue with PT/OT -c/w aspirin Atrial fibrillation -Machine Ii Coremaker Dr. Knight on board -c/w amiodarone 400 mg po bid -c/w Eliquis 5 mg po bid HTN: -c/w losartan and Lasix DVT prophylaxis: -on Eliquis 5 mg po bid Rest of the plan as ordered Patient seen, examined and plan discussed with Dr. Nae Diaz, pgy-2
--- NOTE | 2018-07-20 13:25 | PCM.PSYTMC ---
Acute Rehab Team Conference - - Vital Signs: Vital Signs (Last 8 Hours): Vital Signs 07/20/18 07/20/18 07/20/18 07:40 08:18 08:19 Temperature 97.3 F L Pulse Rate 78 69 69 Respiratory 20 Rate Blood Pressure 144/89 149/70 145/80 O2 Sat by Pulse Oximetry 07/20/18 07/20/18 08:56 09:18 Temperature 96.9 F L Pulse Rate 65 77 Respiratory 20 Rate Blood Pressure 144/89 O2 Sat by Pulse 99 99 Oximetry Pain: 0 - Toileting: Toileting: Minimal Assistance - Bladder Management: Bladder Pattern: Normal Voiding Method: Toilet Bladder Management: Modified Independent - Transfers: Transfers: Modified Independent - ADL's: ADL's: Modified Independent - Goals/Time Frame: Comment: maintain blood pressure systolic less than 140 mmhg. noted. wnl - Provider: Registered Nurse:: Rogelio Wu Physical Therapy - Bed Mobility Bed Mobility: Modified Independent - Transfers Wheelchair to Mat: Supervision Sit to Stand: Supervision - Ambulation Level of Assistance: Supervision Distance (ft.): 250 Assistive Devices: N/A - Stair Negotiation Stairs: Level of Assistance: Supervision Number of Stairs: 12 - Standing Balance Static Stand: Modified [place] with assistive device - Pain Pain (assessed during therapy session): 0 - Insight/Carryover Insight/Carryover: Good - Patient/Family Education Comment: CVA recovery, safety, d/c recommendations, POC - Assessment/Plan Assessment: Pt participate in 90 minutePT tx session focusing on BLE strengthening exercises, balance and endurance activities, and functional mobility training. Pt negotiates flight of stairs with supervision, ambulates without AD and supervision. Pt is participating in higher level balance activities to challenge HESHAM. Pt will continue to benefit from skilled PT interventions to address deficits, reduce fall risk, and maximize functional independence. [ End ] - Goals Timeframe: 10 days Goals: Sit < > supine (I). All functional transfers (I). Pt will ambulate 500 ft on even/uneven surfaces (I). Pt will ascend/descend flight of stairs mod I with handrail - Provider Physical Therapist:: Natalia Mendoza License Number:: [id number] Occupational Therapy - Arousal/Attention/Orientation Level of Consciousness: Awake, Alert Patient Orientation: Person, Place, Time, Appropriate to Age, Appropriate to Situation - ADL/IADL Self Feeding: Set-up Help Grooming: Set-up Help Bathing-Upper Ext: Supervision Bathing-Lower Ext: Supervision Dressing-Upper Ext: Set-up Help Dressing-Lower Ext: Supervision Homemaking: Supervision - Sitting Balance Static Sitting: Independent without upper extremity support Dynamic Sitting: Reaches across midline, Reaches out of base of support - Transfers Wheelchair to Bed Transfers: Supervision Toilet Transfers: Supervision Tub Transfers: Supervision Comment: no ad used - Wheelchair Management Level of Assistance: Independent Distance (ft.): 150 - Upper Extremity Status Right Upper Extremity Comment: strength and AROM WFLS Left Upper Extremity Comment: strength and AROM WFL. decreased coordination finger to nose test. imapired FM/dexterity skills - Pain Pain (assessed during therapy session): 0 - Insight/Carryover Insight/Carryover: Good - Patient/Family Education Comment: CVA recovery, role of OT, goals in therapy/therapy schedule - Assessment/Plan Assessment: patient is a 52 yo male admitted to [facility] s/p acute CVA. patient presents with unsteadiness on feet/lack of coordinaton LUE/LE, impaired FM/dexterity LUE, impaired dynamic standing balance, impaired act tolerance and impaired knowledge of adaptive compensatory techniques impacting pts ability to complete adls, transfers and mobility safely and effectively. patient is doing well and is progressing towards all goals in therapy. Mr Noguera is completing ub adls with s/u assist, lb adls with DS and toileting with DS. He completes transfers/mobility with Ds w/o use of AD. Pt continues to exhibit impairment in the LUE/fingers with coordination/dexterity but it is improving . recommend skilled outpatient OT services post IP stay,. recommend skilled IP OT services 5-6x/week to maximize pts functional prior to d/c - Goals Timeframe: 1 week Comment: independent transfers. independent toileting. indepenent homemaking tasks. indepenent ub/lb adls - Provider Occupational Therapist:: Amy Kowalski License Number: [id number] Recreational Therapy - Participation Participation: Monitors His/Her Own Leisure Time - Attendance Attendance: Daily - Activities Leisure Activities: Cards and Games - Socialization Level of Socialization: Initiates/interacts freely with care givers and peer - Diversional Time Diversional Time: television - Assessment Assessment/Plan: Pt is agreeable to participate in 1:1 and group recreation therapy sessions throughout stay on unit. Pt has participated in dominoes task and bingo task with peers. Pt required min A throughout dominoes task 2' pt unable to recall how to play task independently although pt reported dominoes as a leisure interest. Pt oriented to bingo task and was mod I with task following setup. Pt completes leisure tasks utilizing both hands although encouraged to utilize L hand more throughout tasks. Pt will continue to benefit from participating in recreation therapy sessions throughout stay on unit. Problems Currently Limiting Participation: decrease leisure awareness level, L UE weakness Goals and Time Frame: Pt will be encouraged to participate in 1:1 and group recreation therapy sessions 3-5x week to improve fine motor skills with L and R hand, leisure awareness level, activity tolerance level, and to improve mood st ate by date of discharge. - Provider Therapist: Lucero Ward Nutrition - Current Diet Current Diet/Supplement/Feedings: Heart healthy thin liquids - Appetite Percent Meal Consumed: 75-100% - Assessment/Goals/Time Frame Assessments/Goals/Time Frame: Pt at moderate nutritional risk. goals: 1: Consume >75% of meals. 2: Maintain wt within 2-3 lbs. of current wt. Follow-up due on 07/24/2018 - Provider Provider: Dimple Oneill Case Management - Psychosocial Assessment Support Systems: Vinny Sotomayor ([facility]) - [phone] Psychological Interventions/Needs: Patient is AAOx3 and able to verbalize needs Discharge Concerns: Patient lives with friends and has cardiac history that must be closely followed. Patient/Family Meeting: CM met with patient and rehab team. Intervention/Goal/Outcome: 1. Goal: Mod I 2. Plan: home with outpatient PT 3. schedule outpatient PT for pt. 4. schedule follow ups 5. continued emotional support - Discharge Plan Discharge Plan: Home with significant other/family - Provider Provider: Sharla Tucker License Number: [id number] Rehabilitation Plan - Treatment Plan Treatment Plan: Physical Therapy, Occupational Therapy, Dietary, Patient/Family Education - Discharge Plan Estimated Date of Discharge: 07/22/18 Discharge to: Home
--- NOTE | 2018-07-20 15:15 | CP.PCM.PN ---
Subjective - Date & Time of Evaluation Date of Evaluation: 07/20/18 Time of Evaluation: 15:14 - Subjective Subjective: Patient seen in the room doing well NAD good rom and improved strength and dexterity in the left hand/wrist continue current care will plan d/c home 07/22/18 Objective - Vital Signs/Intake and Output Vital Signs (last 24 hours): Temp Pulse Resp BP Pulse Ox 96.9 F L 77 20 144/89 99 07/20/18 09:18 07/20/18 09:18 07/20/18 09:18 07/20/18 09:18 07/20/18 09:18 - Medications Medications: Current Medications Amiodarone HCl (Cordarone) 400 mg PO BID [facility] Last Admin: 07/20/18 08:19 Dose: 400 mg Apixaban (Eliquis) 5 mg PO BID [facility]; Protocol Last Admin: 07/20/18 08:18 Dose: 5 mg Aspirin (Ecotrin) 81 mg PO DAILY [facility] Last Admin: 07/20/18 08:18 Dose: 81 mg Atorvastatin Calcium (Lipitor) 40 mg PO DAILY [facility] Last Admin: 07/20/18 08:18 Dose: 40 mg Furosemide (Lasix) 40 mg PO DAILY [facility] Last Admin: 07/20/18 08:18 Dose: 40 mg Losartan Potassium (Cozaar) 100 mg PO DAILY [facility] Last Admin: 07/20/18 08:18 Dose: 100 mg Potassium Chloride (Klor-Con 8) 8 meq PO DAILY [facility] Last Admin: 07/20/18 08:19 Dose: 8 meq - Labs Labs: 07/17/18 05:30 07/17/18 05:30
[2018-07-21 06:55] LABS: BASO # 0.1 K/uL (0.0-0.2); BASO % 1.1 % (0.0-2.0); EOS # 0.2 K/uL (0.0-0.7); HEMOGLOBIN 15.6 g/dL (12.0-18.0); LYMPH # 1.7 K/uL (1.0-4.3); LYMPH % 23.1 % (20.0-40.0); MEAN CELL VOLUME 87.4 fl (80.0-94.0); MEAN CORPUSCULAR HEMOGLOBIN 30.4 pg (27.0-31.0); MEAN CORPUSCULAR HGB CONC 34.7 g/dL (33.0-37.0); MONO # 0.7 K/uL (0.0-0.8); MONO % 9.3 % (0.0-10.0); NEUT # 4.6 K/uL (1.8-7.0); NEUT % 63.5 % (50.0-75.0); NRBC % 0.1 % (0.0-0.0); RBC 5.14 Mil/uL (4.40-5.90); RED CELL DISTRIBUTION WIDTH 15.7 % (11.5-14.5); WHITE BLOOD COUNT 7.3 K/uL (4.8-10.8)
[2018-07-21 07:19] LABS: ALB/GLOB RATIO 1.3 (1.0-2.1); ALBUMIN 3.9 g/dL (3.5-5.0); CALCIUM 9.1 mg/dL (8.4-10.2)
[2018-07-21] MEDS: Potassium Chloride 8 MEQ TER PO SCH (08:07)
--- NOTE | 2018-07-21 09:13 | CP.PCM.PN ---
Subjective - Date & Time of Evaluation Date of Evaluation: 07/21/18 Time of Evaluation: 09:13 - Subjective Subjective: No acute overnight events. Pt seen and examined by bedside this AM. Pt is going to shower at this time. No new c/o. Objective - Vital Signs/Intake and Output Vital Signs (last 24 hours): Temp Pulse Resp BP Pulse Ox 98.1 F 77 20 154/96 H 98 07/21/18 08:10 07/21/18 08:10 07/21/18 08:10 07/21/18 08:10 07/21/18 08:10 - Medications Medications: Current Medications Amiodarone HCl (Cordarone) 400 mg PO BID [facility] Last Admin: 07/21/18 08:05 Dose: 400 mg Apixaban (Eliquis) 5 mg PO BID [facility]; Protocol Last Admin: 07/21/18 08:06 Dose: 5 mg Aspirin (Ecotrin) 81 mg PO DAILY [facility] Last Admin: 07/21/18 08:06 Dose: 81 mg Atorvastatin Calcium (Lipitor) 40 mg PO DAILY [facility] Last Admin: 07/21/18 08:07 Dose: 40 mg Furosemide (Lasix) 40 mg PO DAILY [facility] Last Admin: 07/21/18 08:07 Dose: 40 mg Losartan Potassium (Cozaar) 100 mg PO DAILY [facility] Last Admin: 07/21/18 08:06 Dose: 100 mg Potassium Chloride (Klor-Con 8) 8 meq PO DAILY [facility] Last Admin: 07/21/18 08:07 Dose: 8 meq - Labs Labs: 07/21/18 06:30 07/21/18 06:30 - Constitutional Appears: No Acute Distress - Head Exam Head Exam: NORMAL INSPECTION - Respiratory Exam Respiratory Exam: Clear to Ausculation Bilateral. absent: Wheezes - Cardiovascular Exam Cardiovascular Exam: Irregular Rhythm, +S1, +S2 - GI/Abdominal Exam GI & Abdominal Exam: Soft, Normal Bowel Sounds. absent: Tenderness - Extremities Exam Extremities Exam: absent: Calf Tenderness, Pedal Edema Assessment and Plan - Assessment and Plan (Free Text) Assessment: Assessment/Plan: 52 year old male with PMHx chronic paroxysmal atrial fibrillation, CHF w/ preserved EF (HFpEF), HTN and recent (07/06/18) left sided CVA admitted to acute rehab on 07/15/18 for physical therapy for gait strengthening and optimizing functional independence. Patient is recovering well with PT/OT and residual weakness resolved. Anticipate discharge on 07/22/18. CVA w/ left sided residual weakness: improving, Continue with PT/OT and ASA Atrial fibrillation: cardiology on board, c.w current meds HTN: controlled, c/w losartan and Lasix DVT prophylaxis: c.w on Eliquis 5 mg po bid
--- NOTE | 2018-07-21 19:21 | CP.PCM.PN ---
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 denies sob/cp or dizziness continue current care set for d/c home tomorrow Objective - Vital Signs/Intake and Output Vital Signs (last 24 hours): Temp Pulse Resp BP Pulse Ox 98.1 F 73 20 146/90 98 07/21/18 08:10 07/21/18 16:55 07/21/18 08:10 07/21/18 16:55 07/21/18 08:10 - Medications Medications: Current Medications Amiodarone HCl (Cordarone) 400 mg PO BID [facility] Last Admin: 07/21/18 16:55 Dose: 400 mg Apixaban (Eliquis) 5 mg PO BID [facility]; Protocol Last Admin: 07/21/18 16:56 Dose: 5 mg Aspirin (Ecotrin) 81 mg PO DAILY [facility] Last Admin: 07/21/18 08:06 Dose: 81 mg Atorvastatin Calcium (Lipitor) 40 mg PO DAILY [facility] Last Admin: 07/21/18 08:07 Dose: 40 mg Furosemide (Lasix) 40 mg PO DAILY [facility] Last Admin: 07/21/18 08:07 Dose: 40 mg Losartan Potassium (Cozaar) 100 mg PO DAILY [facility] Last Admin: 07/21/18 08:06 Dose: 100 mg Potassium Chloride (Klor-Con 8) 8 meq PO DAILY [facility] Last Admin: 07/21/18 08:07 Dose: 8 meq - Labs Labs: 07/21/18 06:30 07/21/18 06:30
[2018-07-21 20:22] VITALS: TEMP 97.9
[2018-07-22 08:31] VITALS: PULSE 66; O2SAT 97
[2018-07-22] MEDS: Potassium Chloride 8 MEQ TER PO SCH (08:46)
--- NOTE | 2018-07-22 10:51 | CP.PCM.DIS ---
Provider - Provider Date of Admission: 07/14/18 16:45 Attending physician: Artem Gilliland MD Consults: 07/14/18 17:10 Physiatry Consult Routine Comment: Consulting Provider: Ian Clements Consulting Physician: Ian Clements Reason for Consult: stroke 07/14/18 17:15 Case Management Referral Routine Comment: Physician Instructions: Reason For Exam: stroke Reason for Referral: Discharge Planning 07/15/18 07:22 Cardiology Consult Routine Comment: Consulting Provider: Luciano Knight Consulting Physician: Luciano Knight Reason for Consult: CVA, Afib and CHF Time Spent in preparation of Discharge (in minutes): 35 Diagnosis - Discharge Diagnosis (1) Hyperlipidemia Status: Chronic (2) CVA (cerebral vascular accident) Status: Acute (3) Hypertension Status: Chronic (4) CHF exacerbation Status: Chronic Hospital Course - Lab Results Lab Results: Most Recent Lab Values WBC 7.3 K/uL (4.8-10.8) 07/21/18 06:30 RBC 5.14 Mil/uL (4.40-5.90) 07/21/18 06:30 Hgb 15.6 g/dL (12.0-18.0) 07/21/18 06:30 Hct 45.0 % (35.0-51.0) 07/21/18 06:30 MCV 87.4 fl (80.0-94.0) 07/21/18 06:30 MCH 30.4 pg (27.0-31.0) 07/21/18 06:30 MCHC 34.7 g/dL (33.0-37.0) 07/21/18 06:30 RDW 15.7 % (11.5-14.5) H 07/21/18 06:30 Plt Count 119 K/uL (130-400) L 07/21/18 06:30 MPV 10.0 fl (7.2-11.7) 07/21/18 06:30 Neut % (Auto) 63.5 % (50.0-75.0) 07/21/18 06:30 Lymph % (Auto) 23.1 % (20.0-40.0) 07/21/18 06:30 Mclean % (Auto) 9.3 % (0.0-10.0) 07/21/18 06:30 Eos % (Auto) 3.0 % (0.0-4.0) 07/21/18 06:30 Baso % (Auto) 1.1 % (0.0-2.0) 07/21/18 06:30 Neut # (Auto) 4.6 K/uL (1.8-7.0) 07/21/18 06:30 Lymph # (Auto) 1.7 K/uL (1.0-4.3) 07/21/18 06:30 Mclean # (Auto) 0.7 K/uL (0.0-0.8) 07/21/18 06:30 Eos # (Auto) 0.2 K/uL (0.0-0.7) 07/21/18 06:30 Baso # (Auto) 0.1 K/uL (0.0-0.2) 07/21/18 06:30 Sodium 138 mmol/l (132-148) 07/21/18 06:30 Potassium 3.7 MMOL/L (3.6-5.0) 07/21/18 06:30 Chloride 102 mmol/L (98-107) 07/21/18 06:30 Carbon Dioxide 29 mmol/L (22-30) 07/21/18 06:30 Anion Gap 11 (10-20) 07/21/18 06:30 BUN 21 mg/dl (9-20) H 07/21/18 06:30 Creatinine 1.5 mg/dl (0.8-1.5) 07/21/18 06:30 Est GFR ( Amer) 59 07/21/18 06:30 Est GFR (Non-Af Amer) 49 07/21/18 06:30 Random Glucose 85 mg/dL (75-110) 07/21/18 06:30 Calcium 9.1 mg/dL (8.4-10.2) 07/21/18 06:30 Total Bilirubin 0.9 mg/dl (0.2-1.3) 07/21/18 06:30 AST 25 U/L (17-59) 07/21/18 06:30 ALT 28 U/L (21-72) 07/21/18 06:30 Alkaline Phosphatase 59 U/L (38-126) 07/21/18 06:30 Total Protein 6.8 G/DL (6.3-8.2) 07/21/18 06:30 Albumin 3.9 g/dL (3.5-5.0) 07/21/18 06:30 Globulin 3.0 gm/dL (2.2-3.9) 07/21/18 06:30 Albumin/Globulin Ratio 1.3 (1.0-2.1) 07/21/18 06:30 - Hospital Course Hospital Course: 52 YO Male with PMHx of atrial fibrillation, CHF w/ preserved EF (HFpEF), HTN and recent left sided CVA admitted to acute rehab for PT, for gait strengthening and optimizing functional status. Patient came to [facility] ER on 07/06/18 for left sided facial, arm and leg weakness and hospitalized until 07/14/18. Patient is doing well this AM, residual weakness resolved at this time. 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 Discharge Exam - Head Exam Head Exam: NORMAL INSPECTION - Eye Exam Eye Exam: Normal appearance - ENT Exam ENT Exam: Mucous Membranes Moist - Respiratory Exam Respiratory Exam: Clear to PA & Lateral, NORMAL BREATHING PATTERN. absent: Wheezes - Cardiovascular Exam Cardiovascular Exam: REGULAR RHYTHM, +S1, +S2 - GI/Abdominal Exam GI & Abdominal Exam: Normal Bowel Sounds, Soft. absent: Tenderness - Extremities Exam Extremities exam: normal inspection - Neurological Exam Neurological exam: Alert, CN II-XII Intact Discharge Plan - Follow Up Plan Condition: GOOD Disposition: HOME/ ROUTINE Patient education suggested?: Yes Instructions: Stroke (DC), Controlling Your Blood Pressure Through Lifestyle, Stroke Rehab Exercises, Hypertension (DC), Hypertension (GEN) Additional Instructions: Please follow up with PMD in 1 week Cardiology apt on 07/28/18 ER precautions reviewed with patient Referrals: Luciano Knight MD [Staff Provider] - Artem Gilliland MD [Staff Provider] -
[2018-07-22 10:57] VITALS: BP 148/78
== END 2018-07-22 11:49 | disposition home or self-care (01) | DRG 57 ==
PROVIDERS: ADMIT Internal Medicine; ATTEND Internal Medicine
PROC: F07Z9ZZ Gait Training/Functional Ambulation Treatment (ICD-10-PCS; principal; 2018-07-14)
PROC: F07L6GZ Therapeutic Exercise Treatment of Musculoskeletal System - Lower Back / Lower Extremity using Aerobic Endurance and Conditioning Equipment (ICD-10-PCS; 2018-07-14)
PROC: F08Z0ZZ Bathing/Showering Techniques Treatment (ICD-10-PCS; 2018-07-14)
PROC: F08Z1ZZ Dressing Techniques Treatment (ICD-10-PCS; 2018-07-14)
DX: I69.354 Hemiplegia and hemiparesis following cerebral infarction affecting left non-dominant side (principal); I42.9 Cardiomyopathy, unspecified; I50.32 Chronic diastolic (congestive) heart failure; N17.9 Acute kidney failure, unspecified; Z79.01 Long term (current) use of anticoagulants; I11.0 Hypertensive heart disease with heart failure; I48.0 Paroxysmal atrial fibrillation; I48.2 Chronic atrial fibrillation; E78.5 Hyperlipidemia, unspecified